=== PATIENT | female | born 1995 | race Caucasian/White ===

== ENCOUNTER 2016-07-16 16:11 | Emergency (ER) | payer OTHER ==
[~2016-07-16] VITALS: Ht 170.2 cm; Wt 74.7 kg
[~2016-07-16 16:11] MED LIST: OXYC-57 PO
[2016-07-16 16:19] VITALS: TEMP 36.9; Ht 170.2 cm; Wt 74.7 kg
[2016-07-16] MEDS ORDERED: ONDANSETRON INJ 2 MG/ML 2 ML VIAL IV STA (17:28)
[2016-07-16] MEDS ORDERED: SODIUM CHLORIDE 0.9% 1000ML 1,000 ML IV STA (17:28)
[2016-07-16] MEDS ORDERED: MoRPHine SULFATE 4 MG/ML 1 ML CARP\\VIAL IV STA (17:28)
--- NOTE | 2016-07-16 17:58 | EMERGENCY ROOM VISIT NOTE ---
History Report prepared by Preston: Kayleigh Barakat Under the Supervision of: Dr. Sarah De Leon M.D. First contact with patient: 17:24 Chief Complaint: REFERRED BY DOCTOR Stated Complaint: PAIN IN RT ABDOMEN/RIBS History of Present Illness The patient is a 20 year old female who presents to the Emergency Room with complaints of worsening right sided abdominal pain for the past 3 weeks. Her pain radiates into her right ribs, right shoulder, and the right side of her back. She rates her pain as a 7/10. Initially she thought that she pulled a muscle at work because she does a lot of heavy lifting but she states that it is not improving. Over the past few days her pain has been worse after eating and she gets nauseous after eating. She notes feeling tired and occasionally short of breath as well. Coughing and palpation exacerbate her pain. The patient called her PCP and was advised to come to the ED for further evaluation. She denies swelling in her legs. She is on control but cannot deny chance of . Source of History: patient Onset: 3 weeks ago Position: abdomen Symptom Intensity: 7/10 Quality: other (radiating) Timing: worsening Modifying Factors (Worsening): eating, other (coughing) Associated Symptoms: + SOB, + back pain, + fatigue, + nausea Review of Systems See HPI for pertinent positives & negatives. A total of 10 systems reviewed and were otherwise negative. Past Medical & Surgical Medical Problems: (1) Abdominal pain (2) Appendicitis, acute (3) Appendicitis, acute (4) Exposure to bloodborne pathogen (5) Exposure to bloodborne pathogen (6) Female infertility (7) Finger avulsion (8) Gastritis (9) Gastritis (10) HTN (hypertension) (11) Pelvic pain (12) PID (acute pelvic inflammatory disease) Surgical Problems: (1) S/P appendectomy Family History Heart disease Social History Smoking Status: Never Smoker Alcohol Use: none Drug Use: none Marital Status: in relationship Housing Status: lives with significant other Occupation Status: employed Current/Historical Medications Scheduled Control Pills ( Control Pills), 1 TAB PO DAILY Pantoprazole (Protonix), 40 MG PO DAILY Scheduled PRN Ibuprofen (Motrin), 800 MG PO Q6H PRN for Pain Allergies Coded Allergies: No Known Allergies (Unverified , 05/11/16) Physical Exam Vital Signs Date Time Temp Pulse Resp B/P Pulse Ox O2 Delivery O2 Flow Rate FiO2 07/16/16 21:54 70 20 128/71 99 07/16/16 21:00 72 18 120/72 Room Air 07/16/16 19:50 85 18 119/85 98 Room Air 07/16/16 18:51 106 20 140/94 97 Room Air 07/16/16 16:19 36.9 98 17 147/90 100 Room Air Physical Exam Vital signs reviewed. General: Well-appearing 20 year old female, in no significant distress. HEENT: No scleral icterus, PERRLA, neck supple. Atraumatic. Cardiovascular: Regular rate and rhythm, no extra sounds. Pulmonary: Clear to auscultation bilaterally, normal work of breathing. Abdomen: Soft, tender to palpation of the RUQ, nondistended, positive bowel sounds. Musculoskeletal: Atraumatic, no peripheral edema. Neurologic: Patient awake alert and oriented x 3, full strength in all 4 extremities. Cranial nerves 2 through 12 grossly intact. Skin: Warm, dry, no rash Medical Decision & Procedures ER Provider Diagnostic Interpretation: Radiology results as stated below per my review and radiologist interpretation: ABDOMINAL ULTRASOUND, RIGHT UPPER QUADRANT HISTORY: Right upper quadrant abdominal pain.. COMPARISON: Abdomen and pelvis CT 01/31/2016. FINDINGS: Pancreas: The pancreatic tail is obscured by overlying bowel gas. The remaining portions of the pancreas are within normal limits. Liver: Unremarkable. Gallbladder: No gallbladder wall thickening. No gallstones. CBD: 3 mm. Right kidney: No hydronephrosis. IMPRESSION: No significant abnormality identified within the right upper quadrant. Electronically signed by: Boo Alfosno M.D. 07/16/2016 7:54 PM CHEST ONE VIEW PORTABLE HISTORY: cough, RUQ pain COMPARISON: Chest 01/31/2016. FINDINGS: The lungs are clear. Cardiac silhouette is normal in size. No pleural effusions. No pneumothorax. IMPRESSION: No acute process. Electronically signed by: Boo Alfonso M.D. 07/16/2016 6:04 PM CHEST CTA for PULMONARY ARTERIES CT DOSE: 241.52 mGy.cm HISTORY: Atypical chest pain. TECHNIQUE: Multiaxial CT images of the chest were performed following the intravenous administration of contrast to evaluate the pulmonary arteries. Maximal intensity projection images were also obtained. COMPARISON STUDY: Chest CTA 04/27/2012. FINDINGS: There is a normal caliber thoracic aorta with no evidence for dissection. There is no evidence for pulmonary embolus. No pleural effusions. No pneumothorax. The liver and spleen are unremarkable. No mediastinal or hilar lymphadenopathy. The central airways are patent. The lungs are clear. IMPRESSION: No evidence for pulmonary embolus. Electronically signed by: Boo Alfonso M.D. 07/16/2016 9:20 PM Laboratory Results 07/16/16 17:40 Red Blood Count 4.55, Mean Corpuscular Volume 82.6, Mean Corpuscular Hemoglobin 27.3, Mean Corpuscular Hemoglobin Concent 33.0, Mean Platelet Volume 10.6, Neutrophils (%) (Auto) 56.6, Lymphocytes (%) (Auto) 34.2, Monocytes (%) (Auto) 8.0, Eosinophils (%) (Auto) 0.8, Basophils (%) (Auto) 0.2, Neutrophils # (Auto) 5.59, Lymphocytes # (Auto) 3.38, Monocytes # (Auto) 0.79, Eosinophils # (Auto) 0.08, Basophils # (Auto) 0.02 07/16/16 17:40 Test 07/16/16 17:40 07/16/16 17:45 07/16/16 19:57 White Blood Count 9.88 K/uL (4.8-10.8) Red Blood Count 4.55 M/uL (4.2-5.4) Hemoglobin 12.4 g/dL (12.0-16.0) Hematocrit 37.6 % (37-47) Mean Corpuscular Volume 82.6 fL (80-100) Mean Corpuscular Hemoglobin 27.3 pg (25-34) Mean Corpuscular Hemoglobin Concent 33.0 g/dl (32-36) Platelet Count 252 K/uL (130-400) Mean Platelet Volume 10.6 fL (7.4-10.4) Neutrophils (%) (Auto) 56.6 % Lymphocytes (%) (Auto) 34.2 % Monocytes (%) (Auto) 8.0 % Eosinophils (%) (Auto) 0.8 % Basophils (%) (Auto) 0.2 % Neutrophils # (Auto) 5.59 K/uL (1.4-6.5) Lymphocytes # (Auto) 3.38 K/uL (1.2-3.4) Monocytes # (Auto) 0.79 K/uL (0.11-0.59) Eosinophils # (Auto) 0.08 K/uL (0-0.5) Basophils # (Auto) 0.02 K/uL (0-0.2) RDW Standard Deviation 43.0 fL (36.4-46.3) RDW Coefficient of Variation 14.2 % (11.5-14.5) Immature Granulocyte % (Auto) 0.2 % Immature Granulocyte # (Auto) 0.02 K/uL (0.00-0.02) Anion Gap 13.0 mmol/L (3-11) Est Creatinine Clear Calc Drug Dose 101.2 ml/min Estimated GFR () 102.4 Estimated GFR (Non- 88.4 BUN/Creatinine Ratio 15.0 (10-20) Calcium Level 9.2 mg/dl (8.5-10.1) Magnesium Level 2.2 mg/dl (1.8-2.4) Total Bilirubin 0.3 mg/dl (0.2-1) Direct Bilirubin 0.1 mg/dl (0-0.2) Aspartate Amino Transf (AST/SGOT) 20 U/L (15-37) Alanine Aminotransferase (ALT/SGPT) 19 U/L (12-78) Alkaline Phosphatase 67 U/L (45-117) Total Creatine Kinase 87 U/L (26-192) Creatine Kinase MB 0.5 ng/ml (0.5-3.6) Creatine Kinase MB Ratio 0.6 (0-3.0) Total Protein 8.5 gm/dl (6.4-8.2) Albumin 4.5 gm/dl (3.4-5.0) Lipase 138 U/L (73-393) Human Chorionic Gonadotropin, Quant < 1 mIU/mL Urine Color YELLOW Urine Appearance CLEAR (CLEAR) Urine pH 5.0 (4.5-7.5) Urine Specific [place] 1.012 (1.000-1.030) Urine Protein NEG (NEG) Urine Glucose (UA) NEG (NEG) Urine Ketones 2+ (NEG) Urine Occult Blood NEG (NEG) Urine Nitrite NEG (NEG) Urine Bilirubin NEG (NEG) Urine Urobilinogen NEG (NEG) Urine Leukocyte Esterase NEG (NEG) Bedside D-Dimer > 450 ng/mlFEU (0-450) Laboratory results per my review. Medications Administered Medications (Trade) Dose Ordered Sig/Анна Route Start Time Stop Time Status Last Admin Dose Admin Sodium Chloride (Nss 1000ml) 1,000 ml @ 125 mls/hr Q8H STAT IV 07/16/16 17:28 07/16/16 22:48 DC 07/16/16 18:48 125 MLS/HR Morphine Sulfate (MoRPHine SULFATE INJ) 4 mg NOW STAT IV 07/16/16 17:28 07/16/16 17:30 DC 07/16/16 18:47 4 MG Ondansetron HCl (Zofran Inj) 4 mg NOW STAT IV 07/16/16 17:28 07/16/16 17:30 DC 07/16/16 18:47 4 MG Ketorolac Tromethamine (Toradol Inj) 30 mg NOW STAT IV 07/16/16 19:52 07/16/16 19:54 DC 07/16/16 20:01 30 MG Pantoprazole Sodium (Protonix Tab) 40 mg NOW STAT PO 07/16/16 21:29 07/16/16 21:30 DC 07/16/16 21:46 40 MG ECG Indication: abdominal pain Rate (beats per minute): 84 Rhythm: normal sinus Findings: no acute ischemic change, no ectopy ED Course 1723: Past medical records reviewed. The patient was evaluated in room B3B. A complete history and physical examination was performed. 1727: Zofran 4 mg IV, Morphine sulfate 4 mg IV, NSS 1000 ml @ 125 mls/hr IV 1951: Toradol 30 mg IV 2106: I reassessed the patient and she is doing well. 2128: Protonix tab 40 mg PO 2146: I reassessed the patient at this time. She is feeling better and resting comfortably. I discussed the results and treatment plan with the patient. I answered all pertaining questions that she had. She expressed understanding and verbalized agreement. The patient will be discharged home. Medical Decision Differential diagnosis: Etiologies such as appendicitis, diverticulitis, PUD, biliary pathology, UTI, pancreatitis, obstruction, mesenteric ischemia, aortic pathology, infections, inflammatory bowel disease, renal colic, as well as others were entertained. This pt was evaluated and appeared to be in no distress. IV access was obtained and lab work was drawn. Pt was placed on the ice cream dispenser. IVF were initiated and pt was medicated with morphine and zofran. US GB is negative for acute abnl. Lab work is fairly unrevealing. DDimer is positive and CT chest is neg for PE. PT was informed of the findings and agrees with plan for conservative tx. She will f/u with PCP this week and return to the ED for worsening of symptoms or any medical concerns. [place] Drug Monitoring Program Search Results: patient reviewed within database Impression Primary Impression: Right upper quadrant pain Scribe Attestation The scribe's documentation has been prepared under my direction and personally reviewed by me in its entirety. I confirm that the note above accurately reflects all work, treatment, procedures, and medical decision making performed by me. Departure Information Dispostion Home / Self-Care Prescriptions Pantoprazole (Protonix) 40 Mg Tab 40 MG PO DAILY, #30 TAB Prov: Sarah De Leon M.D. 07/16/16 Referrals Evin Champion M.D. (PCP) Forms HOME CARE DOCUMENTATION FORM, IMPORTANT VISIT INFORMATION, WORK / SCHOOL INSTRUCTIONS Patient Instructions A Signature Page, My [facility] Additional Instructions Diagnosis: Right upper quadrant abdominal pain Protonix 40 mg daily for the next 2 weeks. Avoid alcohol, coffee, soda, greasy and spicy fluids. Drink plenty of clear fluids. Follow-up with your physician this week for reevaluation and consideration of further testing. Return to the ER for worsening of symptoms or any medical concerns.
--- NOTE | 2016-07-16 18:05 | DIAGNOSTIC IMAGING REPORT ---
CHEST ONE VIEW PORTABLE HISTORY: cough, RUQ pain COMPARISON: Chest 01/31/2016. FINDINGS: The lungs are clear. Cardiac silhouette is normal in size. No pleural effusions. No pneumothorax. IMPRESSION: No acute process. Electronically signed by: Boo Alfonso M.D. 07/16/2016 6:04 PM
[2016-07-16 18:10] LABS: BASO % 0.2 %; BASO ABS # 0.02 K/uL (0-0.2); COMPLETE YES; EOS % 0.8 %; HEMATOCRIT 37.6 % (37-47); IG% 0.2 %; LYMPH % 34.2 %; LYMPH ABS # 3.38 K/uL (1.2-3.4); MEAN CELL VOLUME 82.6 fL (80-100); MEAN CORPUSCULAR HEMOGLOBIN 27.3 pg (25-34); MEAN PLATELET VOLUME 10.6 fL (7.4-10.4); NEUT % 56.6 %; PLATELET COUNT 252 K/uL (130-400); RED BLOOD COUNT 4.55 M/uL (4.2-5.4); WHITE BLOOD COUNT 9.88 K/uL (4.8-10.8)
[2016-07-16 18:29] LABS: CALCIUM 9.2 mg/dl (8.5-10.1); CREATININE 0.92 mg/dl (0.60-1.20); MAGNESIUM 2.2 mg/dl (1.8-2.4); POTASSIUM 3.5 mmol/L (3.5-5.1)
[2016-07-16 18:33] LABS: CKMB/CK RATIO 0.6 (0-3.0)
[2016-07-16] MEDS ORDERED: BCPILLS PO (18:36)
[2016-07-16] MEDS ORDERED: IBUP-1428 PO (18:37)
[2016-07-16 19:06] LABS: URINE APPEARANCE CLEAR (CLEAR); URINE BILIRUBIN NEG (NEG); URINE COLOR YELLOW; URINE NITRITE NEG (NEG); URINE SPECIFIC GRAVITY 1.012 (1.000-1.030); UROBILINOGEN NEG (NEG); ZZUR CULT IF INDIC CLEAN CATCH NO
[2016-07-16 19:11] LABS: MANUAL MICROSCOPIC REQUIRED? NO; REVIEW REQ? NO
[2016-07-16] MEDS ORDERED: KETOROLAC TROMETHAMINE 30 MG/ML VIAL IV STA (19:52)
--- NOTE | 2016-07-16 19:55 | DIAGNOSTIC IMAGING REPORT ---
ABDOMINAL ULTRASOUND, RIGHT UPPER QUADRANT HISTORY: Right upper quadrant abdominal pain.. COMPARISON: Abdomen and pelvis CT 01/31/2016. FINDINGS: Pancreas: The pancreatic tail is obscured by overlying bowel gas. The remaining portions of the pancreas are within normal limits. Liver: Unremarkable. Gallbladder: No gallbladder wall thickening. No gallstones. CBD: 3 mm. Right kidney: No hydronephrosis. IMPRESSION: No significant abnormality identified within the right upper quadrant. Electronically signed by: Boo Alfonso M.D. 07/16/2016 7:54 PM
[2016-07-16] MEDS ORDERED: OPTIRAY 320 IV PRN (20:30)
--- NOTE | 2016-07-16 21:22 | DIAGNOSTIC IMAGING REPORT ---
CHEST CTA for PULMONARY ARTERIES CT DOSE: 241.52 mGy.cm HISTORY: Atypical chest pain. TECHNIQUE: Multiaxial CT images of the chest were performed following the intravenous administration of contrast to evaluate the pulmonary arteries. Maximal intensity projection images were also obtained. COMPARISON STUDY: Chest CTA 04/27/2012. FINDINGS: There is a normal caliber thoracic aorta with no evidence for dissection. There is no evidence for pulmonary embolus. No pleural effusions. No pneumothorax. The liver and spleen are unremarkable. No mediastinal or hilar lymphadenopathy. The central airways are patent. The lungs are clear. IMPRESSION: No evidence for pulmonary embolus. Electronically signed by: Boo Alfonso M.D. 07/16/2016 9:20 PM
[2016-07-16] MEDS ORDERED: PANT40TA PO (21:28)
[2016-07-16] MEDS ORDERED: PANTOprazole SOD 40 MG TAB PO STA (21:29)
[2016-07-16 21:54] VITALS: BP 128/71; PULSE 70; O2SAT 99
[2016-11-06] MEDS ORDERED: FOLI1TAB8 PO (18:35)
== END 2016-07-16 21:55 | disposition home or self-care (01) ==
LOC: C.EDB 16:11
DX: R10.11 Right upper quadrant pain (principal); I10 Essential (primary) hypertension; M25.511 Pain in right shoulder

== ENCOUNTER → 2016-08-20 | Outpatient (CLI) | payer OTHER ==
[~2016-08-20] MED LIST changes: +BCPILLS PO; +DOXY100C PO; +FOLI1TAB7 PO; +HYDR-5688 PO; +IBUP-1428 PO; +METR-163 PO; +MNC50 PO; -OXYC-57 PO; +PANT40TA PO; +PRENTAB26 PO; +SINCALIDE INJ 1.5 MCG in SODIUM CHLORIDE 0.9% 100ML 100 ML IV ONE
--- NOTE | 2016-08-20 10:57 | DIAGNOSTIC IMAGING REPORT ---
NUCLEAR HEPATOBILIARY SCAN WITH EJECTION FRACTION IMAGING CLINICAL HISTORY: Colicky right upper quadrant abdominal pain. COMPARISON STUDY: Abdominal ultrasound dated 07/16/2016. TECHNIQUE: Dynamic images of the liver and anterior abdomen were obtained every 5 minutes for a total of 60 minutes following the IV administration of 5.4mCi of technetium 99m Choletec. 1.5 mcg of sincalide was then injected with an additional images acquired at 45 minutes to calculate the gallbladder ejection fraction. The patient experienced discomfort following the Kinevac infusion and only the 45 minute image was acquired. The ejection fraction was calculated manually. FINDINGS: The hepatobiliary scan shows prompt and homogeneous hepatic uptake. There is visualized activity within the intra and extrahepatic biliary tree at 5 minutes, and within the gallbladder at 5 minutes. There is normal biliary to bowel transit, with small bowel visualized by 10 minutes. On the sincalide imaging, the gallbladder ejection fraction was measured at 70%. IMPRESSION: 1. Unremarkable nuclear hepatobiliary scan. There is no scintigraphic evidence of cholecystitis. 2. The gallbladder ejection fraction measured 70% which is normal. Electronically signed by: Kevin Clarke M.D. 08/20/2016 10:55 AM Dictated Date/Time: 08/20/2016 10:51 AM
== END | disposition home or self-care (01) ==
LOC: C.NUCL 07:31
PROVIDERS: ATTEND Nurse Practitioner
DX: R10.11 Right upper quadrant pain (principal)

== ENCOUNTER → 2016-09-16 | Outpatient (CLI) | payer OTHER ==
[~2016-09-16] MED LIST changes: -SINCALIDE INJ 1.5 MCG in SODIUM CHLORIDE 0.9% 100ML 100 ML IV ONE
== END | disposition home or self-care (01) ==
LOC: C.LAB1850 11:33
PROVIDERS: ATTEND Obstetrics & Gynecology
DX: Z32.00 Encounter for pregnancy test, result unknown (principal)

== ENCOUNTER → 2016-10-03 | Outpatient (CLI) | payer OTHER ==
[2016-10-03 16:03] LABS: URINE APPEARANCE CLEAR (CLEAR); URINE BILIRUBIN NEG (NEG); URINE COLOR YELLOW; URINE NITRITE NEG (NEG); URINE SPECIFIC GRAVITY 1.006 (1.000-1.030); UROBILINOGEN NEG (NEG)
[2016-10-03 16:04] LABS: MANUAL MICROSCOPIC REQUIRED? NO; REVIEW REQ? NO
== END | disposition home or self-care (01) ==
LOC: C.LABSPEC 15:44
PROVIDERS: ATTEND Obstetrics & Gynecology
DX: Z34.01 Encounter for supervision of normal first pregnancy, first trimester (principal)

== ENCOUNTER → 2016-10-10 | Outpatient (CLI) | payer BC | END | disposition home or self-care (01) | LOC: C.PAPS 09:41 | PROVIDERS: ATTEND Obstetrics & Gynecology | DX: Z34.01 Encounter for supervision of normal first pregnancy, first trimester (principal) ==

== ENCOUNTER → 2016-10-10 | Outpatient (CLI) | payer BC ==
[2016-10-10 17:20] LABS: BASO % 0.1 %; BASO ABS # 0.01 K/uL (0-0.2); COMPLETE YES; EOS % 0.4 %; HEMATOCRIT 35.1 % (37-47); IG% 0.1 %; LYMPH % 25.8 %; LYMPH ABS # 2.31 K/uL (1.2-3.4); MEAN CELL VOLUME 82.8 fL (80-100); MEAN CORPUSCULAR HEMOGLOBIN 27.6 pg (25-34); MEAN CORPUSCULAR HGB CONC 33.3 g/dl (32-36); MEAN PLATELET VOLUME 10.1 fL (7.4-10.4); MONO % 10.3 %; NEUT % 63.3 %; PLATELET COUNT 226 K/uL (130-400); RED BLOOD COUNT 4.24 M/uL (4.2-5.4); WHITE BLOOD COUNT 8.94 K/uL (4.8-10.8)
== END | disposition home or self-care (01) ==
LOC: C.LAB1850 16:41
PROVIDERS: ATTEND Obstetrics & Gynecology
DX: Z34.01 Encounter for supervision of normal first pregnancy, first trimester (principal)

== ENCOUNTER 2016-10-17 07:57 | Day surgery (SDC) | payer BC ==
[2016-10-16 16:09] VITALS: BMI 26.0
[~2016-10-17] VITALS: Ht 167.6 cm; Wt 72.7 kg
[~2016-10-17 07:57] MED LIST changes: -BCPILLS PO; -DOXY100C PO; +DOXYCYCLINE HYCLATE 100 MG CAP PO SCH; -FOLI1TAB7 PO; -HYDR-5688 PO; +LACTATED RINGER'S 1000ML 1,000 ML IV SCH; +METHYLERGONOVINE MALEATE 0.2 MG TAB PO SCH; -METR-163 PO; -MNC50 PO; -PANT40TA PO; -PRENTAB26 PO
[2016-10-17] MEDS ORDERED: DOXYCYCLINE HYCLATE 100 MG CAP PO SCH ×2 (08:00→12:00)
[2016-10-17] MEDS ORDERED: MIDAZOLAM HCL 1 MG/ML 2ML VIAL ONE (08:04)
[2016-10-17] MEDS ORDERED: DEXAMETHASONE SOD INJ 4 MG/ML VIAL ONE (08:04)
[2016-10-17] MEDS ORDERED: ONDANSETRON INJ 2 MG/ML 2 ML VIAL ONE ×2 (08:04→09:15)
[2016-10-17] MEDS ORDERED: LIDOCAINE HCL 2% 2 ML VIAL (20MG/ML) ONE (08:04)
[2016-10-17] MEDS ORDERED: FENTANYL CITRATE INJ 50 MCG/1 ML 2 ML VIAL ONE ×3 (08:04→11:50)
[2016-10-17] MEDS ORDERED: PROPOFOL IV EMULSION 10 MG/ML 20 ML VIAL IV ONE (08:04)
[2016-10-17] MEDS ORDERED: METHYLERGONOVINE MALEATE 0.2 MG/ML AMP ONE (08:08)
[2016-10-17 08:22] VITALS: BP 239/72; PULSE 95; TEMP 36.5; O2SAT 9; Ht 167.6 cm; Wt 72.7 kg
[2016-10-17] MEDS ORDERED: NURSING VERBAL MED ORDER ONE ×2 (09:07→12:05)
[2016-10-17] MEDS ORDERED: SCOPOLAMINE 1.5 MG TDSY TD ONE (09:15)
[2016-10-17] MEDS ORDERED: METHYLERGONOVINE MALEATE 0.2 MG/ML AMP IM SCH (10:00)
--- NOTE | 2016-10-17 10:53 | History & Physical Bridge Note ---
H&P Re-Evaluation Bridge Note: I have examined the patient, reviewed the History & Physical and in the interval since the performance of the History & Physical I have noted the following changes of clinical significance: No changes noted
--- NOTE | 2016-10-17 11:01 | Discharge Instructions ---
Discharge Instructions Date of Service Oct 17, 2016. Admission Reason for Admission: Missed Discharge Discharge Diagnosis / Problem: s/p surgery Discharge Goals Goal(s): Routine recovery after surgery Activity Recommendations Activity Limitations: as noted below . Instructions / Follow-Up Instructions / Follow-Up ACTIVITY RECOMMENDATIONS: * Avoid tampons, douching, hot tubs, pools, and intercourse until bleeding has stopped. * May shower as usual. * No strenuous activity for 24-48 hours. After 24-48 hours, you may do anything you feel like doing (driving and sports are okay). SPECIAL CARE INSTRUCTIONS: Special Diet: * Mild nausea may occur in the immediate post-operative period. * Take clear liquids such as tea, cola or bouillon until all nausea has subsided; you may then resume your normal diet. Special Care: * Light bleeding and vaginal spotting can last from a few days to 3-4 weeks. Call your doctor if bleeding becomes heavier than the heaviest part of your period. * Check your temperature twice a day for one week. If it goes above 100.4 degrees Fahrenheit (38.0 Celsius), notify your doctor. * Call your doctor's office for an appointment for 2 weeks after your surgery. YOU WILL BE GIVEN METHERGINE TABS 0.2mg to be taken by mouth every 6hrs for 3 doses. Your first at home dose should be about 5pm today. PRESIDENT THE ANTIBIOTIC THAT I SENT TO YOUR HOME PHARMACY AND TAKE DIRECTED. FOLLOW-UP VISIT: Call your doctor's office for an appointment for 2 weeks after your surgery. Current Hospital Diet Patient's current hospital diet: Discharge Diet Recommended Diet: Regular Diet Pending Studies Studies pending at discharge: yes List of pending studies: pathology report Medical Emergencies . Who to Call and When: Medical Emergencies: If at any time you feel your situation is an emergency, please call 911 immediately. . Non-Emergent Contact Non-Emergency issues call your: Hospital Insurance Representative . . "Provider Documentation" section prepared by Aleksandra Muse. VTE Core Measure Inpt VTE Proph given/why not?: Treatment not indicated
[2016-10-17] MEDS ORDERED: SODIUM CHLORIDE 0.9% 1000ML 1,000 ML IV SCH (11:25)
--- NOTE | 2016-10-17 11:25 | [facility] Post Operative Brief Note ---
Immediate Operative Summary Operative Date Oct 17, 2016. Pre-Operative Diagnosis Missed Post-Operative Diagnosis Missed Procedure(s) Performed Dilation and Evacuation and Curretage Surgeon Dr Muse Tuberculosis Specialist Surgeon(s) none Estimated Blood Loss 25ml Findings uterus top normal preprocedure. moderate POCs. Small and mobile postprocedure. Fluids (cc crystalloids) 1000 Specimens A: Products of conception Drains none Anesthesia general Complication(s) None Disposition Recovery Room / PACU
[2016-10-17] MEDS ORDERED: ONDANSETRON INJ 2 MG/ML 2 ML VIAL IV PRN ×2 (11:30→11:45)
[2016-10-17] MEDS ORDERED: KETOROLAC TROMETHAMINE 30 MG/ML VIAL IV. PRN (11:30)
[2016-10-17] MEDS ORDERED: IBUPROFEN 600 MG TAB PO PRN (11:30)
[2016-10-17] MEDS ORDERED: OXYCODONE/ACETAMINOPHEN 5-325 TAB PO PRN ×2 (11:30)
--- NOTE | 2016-10-17 11:42 | Anesthesiology Progress Note ---
Anesthesia Post Op Note Date & Time Oct 17, 2016 at 11:41 Vital Signs Pain Intensity: 0 Vital Signs Past 12 Hours Date Time Temp Pulse Resp B/P Pulse Ox O2 Delivery O2 Flow Rate FiO2 10/17/16 11:30 73 17 133/81 100 Mask 10 10/17/16 11:22 36.4 84 15 128/96 99 Mask 10 10/17/16 08:22 36.5 95 18 239/72 9 Room Air Notes Mental Status: alert / awake / arousable, participated in evaluation Pt Amnestic to Procedure: Yes Nausea / Vomiting: adequately controlled Pain: adequately controlled Airway Patency, RR, SpO2: stable & adequate BP & HR: stable & adequate Hydration State: stable & adequate Anesthetic Complications: no major complications apparent
[2016-10-17] MEDS ORDERED: ATROPINE SULFATE 0.1 MG/ML 5ML SYR IV PRN (11:45)
[2016-10-17] MEDS ORDERED: EpHEDrine SULFATE INJ 50 MG/ML AMP IV PRN (11:45)
[2016-10-17] MEDS ORDERED: FENTANYL CITRATE INJ 50 MCG/1 ML 2 ML VIAL IV PRN (11:45)
--- NOTE | 2016-10-17 11:51 | OPERATIVE REPORT ---
DATE OF OPERATION: 10/17/2016 PREOPERATIVE DIAGNOSIS: Missed . POSTOPERATIVE DIAGNOSIS: Same. PROCEDURE: Dilatation, evacuation, curettage. SURGEON: Dr. Aleksandra Muse. W[employer] MECHANIC: None. IV FLUIDS: 1000 mL ESTIMATED BLOOD LOSS: 25 mL ANESTHESIA: General. FINDINGS: Uterus top normal size preprocedure and small and mobile post-procedure, moderate products of conception. INDICATIONS: A 20-year-old 1, para 0, with the findings of empty gestational sac on ultrasound yesterday with debris and prior ultrasound about a week ago showing potentially a small yolk sac and pole. The patient denies any vaginal bleeding. She was given her treatment options to include watchful waiting, medical management, and surgical procedures, and went with the latter. DESCRIPTION OF PROCEDURE: The patient was taken to the operating room and identified. After adequate general anesthesia was obtained, she was placed in dorsal lithotomy position and prepped and draped in the usual sterile fashion. The bladder was drained for clear yellow urine. Weighted speculum and anterior retractor placed to visualize the cervix which was grasped at its anterior lip with an Allis clamp. The cervix was sequentially dilated using Hegar dilators to 25. The 8 mm suction curette was gently placed through the cervical os into the uterine cavity after it had been sounded to approximately 11 cm. The uterus was cleared off its contents in multiple passes and curettage was performed to a gritty consistency. Additional passes removed any remaining blood clot or tissue. The patient was given 0.2 mg of IM Methergine at the end of the procedure. There was no significant bleeding. All the retractors were removed. The patient was returned to the supine position and awoken from her anesthesia and transferred to the recovery room in stable condition. I attest to the content of the Intraoperative Record and any orders documented therein. Any exceptio ns are noted below.
[2016-10-17] MEDS ORDERED: METOCLOPRAMIDE HCL INJ 5 MG/ML 2 ML VIAL ONE (12:13)
[2016-10-17 12:30] VITALS: BP 117/57; PULSE 81; TEMP 36.8; O2SAT 98
[2016-10-17 13:00] VITALS: BP 115/76; PULSE 79; O2SAT 97
[2016-10-17 13:34] VITALS: BP 120/64; PULSE 81; TEMP 36.1; O2SAT 98
[2016-10-17] MEDS ORDERED: METHYLERGONOVINE MALEATE 0.2 MG TAB PO SCH (17:00)
== END 2016-10-17 13:44 | disposition home or self-care (01) ==
LOC: C.ACU 07:57
PROVIDERS: ATTEND Obstetrics & Gynecology
DX: O02.1 Missed abortion (principal)

== ENCOUNTER 2016-11-06 17:26 | Emergency (ER) | payer BC ==
[~2016-11-06] VITALS: Ht 167.6 cm; Wt 73.7 kg
[~2016-11-06 17:26] MED LIST changes: -DOXYCYCLINE HYCLATE 100 MG CAP PO SCH; -LACTATED RINGER'S 1000ML 1,000 ML IV SCH; -METHYLERGONOVINE MALEATE 0.2 MG TAB PO SCH
[2016-11-06 17:28] VITALS: TEMP 36.8; Ht 167.6 cm; Wt 73.7 kg
[2016-11-06] MEDS ORDERED: PRENTAB26 PO (18:35)
[2016-11-06] MEDS ORDERED: FOLI1TAB7 PO (18:35)
[2016-11-06 18:40] LABS: BASO % 0.2 %; BASO ABS # 0.02 K/uL (0-0.2); COMPLETE YES; EOS % 1.5 %; HEMATOCRIT 38.1 % (37-47); IG% 0.1 %; LYMPH % 36.3 %; LYMPH ABS # 3.23 K/uL (1.2-3.4); MEAN CORPUSCULAR HEMOGLOBIN 28.3 pg (25-34); MEAN CORPUSCULAR HGB CONC 32.5 g/dl (32-36); MEAN PLATELET VOLUME 9.8 fL (7.4-10.4); MONO % 10.2 %; NEUT % 51.7 %; PLATELET COUNT 262 K/uL (130-400); RED BLOOD COUNT 4.38 M/uL (4.2-5.4)
[2016-11-06 18:43] LABS: MANUAL MICROSCOPIC REQUIRED? NO; REVIEW REQ? NO; URINE APPEARANCE CLEAR (CLEAR); URINE BILIRUBIN NEG (NEG); URINE COLOR YELLOW; URINE EPITHELIAL CELL AUTO >30 /lpf (0-5); URINE NITRITE NEG (NEG); URINE PH 5.5 (4.5-7.5); URINE SPECIFIC GRAVITY 1.018 (1.000-1.030); UROBILINOGEN NEG (NEG); ZZUR CULT IF INDIC CLEAN CATCH NO
[2016-11-06 19:08] LABS: BUN/CREATININE RATIO 10.4 (10-20); CALCIUM 9.4 mg/dl (8.5-10.1); CREATININE 0.94 mg/dl (0.60-1.20); POTASSIUM 3.6 mmol/L (3.5-5.1)
--- NOTE | 2016-11-06 19:30 | DIAGNOSTIC IMAGING REPORT ---
PELVIC ULTRASOUND, TRANSABDOMINAL AND TRANSVAGINAL HISTORY: pelvic pain, hx PID COMPARISON: Pelvic ultrasound 02/12/2016. FINDINGS: Uterus: 8.4 x 3.8 x 4.6 cm. Endometrial stripe: 13 mm in thickness. There are similar appearing complex cysts within the bilateral ovaries which are positioned posterior to the uterus. These measure 4.5 cm on the right and 4.4 cm on the left. These demonstrate internal septations and complex material suggestive of a retracting clot. Therefore, these likely represent hemorrhagic cysts. Miscellaneous:Small amount of pelvic free fluid. IMPRESSION: Bilateral ovarian hemorrhagic cysts as described above. 6-8 week pelvic ultrasound follow up is recommended to ensure resolution. Small amount of pelvic free fluid. Electronically signed by: Boo Alfonso M.D. 11/06/2016 7:28 PM Dictated Date/Time: 11/06/2016 7:24 PM
[2016-11-06] MEDS ORDERED: KETOROLAC TROMETHAMINE 30 MG/ML VIAL IV STA (20:01)
[2016-11-06] MEDS ORDERED: DOXY100C PO (20:14)
[2016-11-06] MEDS ORDERED: METR-163 PO (20:14)
[2016-11-06] MEDS ORDERED: FLUCONAZOLE 50 MG TAB PO ONE (20:15)
[2016-11-06] MEDS ORDERED: CEFTRIAXONE SOD 350MG/ML 1 GM VIAL IM ONE (20:15)
--- NOTE | 2016-11-06 20:16 | EMERGENCY ROOM VISIT NOTE ---
History First contact with patient: 17:32 Chief Complaint: PELVIC PAIN Stated Complaint: PELVIC PAIN History of Present Illness The patient is a 20 year old female who presents to the Emergency Room with complaints of pelvic pain. The patient states that she has had pelvic pain for the past one week. She was seen by her ACCOUNT ASSISTANT last Friday. At that time, she had a normal pelvic exam. She states that she had a D&C performed on October 17 and this appointment with a follow-up from that. She reports that over the weekend, she started to develop pelvic pain and white discharge. She called her ACCOUNT ASSISTANT on Friday and they called her any treatment for a yeast infection. She states that the pain has been gradually worsening and she rates her current discomfort a 7/10. She states that she has a history of PID and has been hospitalized for this in the past. She denies any urinary symptoms, changes in bowel movements, fevers or chills. Review of Systems A complete 10-point Review of Systems was discussed with the patient, with pertinent positives and negatives listed in the History of Present Illness. All remaining Review of Systems questions can be considered negative unless otherwise specified. Past Medical/Surgical History Medical Problems: (1) Abdominal pain (2) Appendicitis, acute (3) Appendicitis, acute (4) Exposure to bloodborne pathogen (5) Exposure to bloodborne pathogen (6) Female infertility (7) Finger avulsion (8) Gastritis (9) Gastritis (10) HTN (hypertension) (11) Pelvic pain (12) PID (acute pelvic inflammatory disease) Surgical Problems: (1) S/P appendectomy Family History Heart disease Social History Smoking Status: Never Smoker Alcohol Use: none Drug Use: none Marital Status: in relationship Housing Status: lives with significant other Occupation Status: employed Current/Historical Medications Scheduled Doxycycline Hyclate (Vibramycin), 100 MG PO BID Folic Acid (Folvite), 1 MG PO DAILY Metronidazole (Flagyl), 500 MG PO BID Multivit/Min/Iron/Fol Ac/Pren ( Vitamin), 1 TAB PO DAILY Scheduled PRN Hydrocodone/Acetaminophen 5MG/325MG ([place] 5MG/325MG), 1-2 TABLET PO Q4H PRN for Pain Ibuprofen (Motrin), 800 MG PO Q6H PRN for Pain Allergies Coded Allergies: No Known Allergies (Unverified , 10/17/16) Physical Exam Vital Signs Date Time Temp Pulse Resp B/P Pulse Ox O2 Delivery O2 Flow Rate FiO2 11/06/16 20:19 90 16 139/90 99 Room Air 11/06/16 17:28 36.8 108 18 155/94 100 Room Air Physical Exam VITALS: Vitals are noted on the nurse's note and reviewed by myself. Vital signs stable. GENERAL: This is a 20-year-old female, in no acute distress, nondiaphoretic, well-developed well-nourished. SKIN: Capillary reflex less than 2 seconds. HEART: Regular rate and rhythm without murmurs gallops or rubs. LUNGS: Clear to auscultation bilaterally without wheezes, rales or rhonchi. ABDOMEN: Positive bowel sounds x 4. Soft, mild tenderness across the pelvic region. No guarding or rebound tenderness. PELVIC: There is a moderate amount of white discharge within the vagina. No cervicitis. No cervical motion tenderness. Mild bilateral adnexal tenderness. NEURO: Patient was alert and oriented to person place and time. Medical Decision & Procedures ER Provider Diagnostic Interpretation: PELVIC ULTRASOUND, TRANSABDOMINAL AND TRANSVAGINAL FINDINGS: Uterus: 8.4 x 3.8 x 4.6 cm. Endometrial stripe: 13 mm in thickness. There are similar appearing complex cysts within the bilateral ovaries which are positioned posterior to the uterus. These measure 4.5 cm on the right and 4.4 cm on the left. These demonstrate internal septations and complex material suggestive of a retracting clot. Therefore, these likely represent hemorrhagic cysts. Miscellaneous:Small amount of pelvic free fluid. IMPRESSION: Bilateral ovarian hemorrhagic cysts as described above. 6-8 week pelvic ultrasound follow up is recommended to ensure resolution. Small amount of pelvic free fluid. Laboratory Results 11/06/16 17:25 Red Blood Count 4.38, Mean Corpuscular Volume 87.0, Mean Corpuscular Hemoglobin 28.3, Mean Corpuscular Hemoglobin Concent 32.5, Mean Platelet Volume 9.8, Neutrophils (%) (Auto) 51.7, Lymphocytes (%) (Auto) 36.3, Monocytes (%) (Auto) 10.2, Eosinophils (%) (Auto) 1.5, Basophils (%) (Auto) 0.2, Neutrophils # (Auto ) 4.60, Lymphocytes # (Auto) 3.23, Monocytes # (Auto) 0.91, Eosinophils # (Auto ) 0.13, Basophils # (Auto) 0.02 11/06/16 17:25 Test 11/06/16 17:25 11/06/16 17:29 11/06/16 19:55 White Blood Count 8.90 K/uL (4.8-10.8) Red Blood Count 4.38 M/uL (4.2-5.4) Hemoglobin 12.4 g/dL (12.0-16.0) Hematocrit 38.1 % (37-47) Mean Corpuscular Volume 87.0 fL (80-100) Mean Corpuscular Hemoglobin 28.3 pg (25-34) Mean Corpuscular Hemoglobin Concent 32.5 g/dl (32-36) Platelet Count 262 K/uL (130-400) Mean Platelet Volume 9.8 fL (7.4-10.4) Neutrophils (%) (Auto) 51.7 % Lymphocytes (%) (Auto) 36.3 % Monocytes (%) (Auto) 10.2 % Eosinophils (%) (Auto) 1.5 % Basophils (%) (Auto) 0.2 % Neutrophils # (Auto) 4.60 K/uL (1.4-6.5) Lymphocytes # (Auto) 3.23 K/uL (1.2-3.4) Monocytes # (Auto) 0.91 K/uL (0.11-0.59) Eosinophils # (Auto) 0.13 K/uL (0-0.5) Basophils # (Auto) 0.02 K/uL (0-0.2) RDW Standard Deviation 51.0 fL (36.4-46.3) RDW Coefficient of Variation 15.8 % (11.5-14.5) Immature Granulocyte % (Auto) 0.1 % Immature Granulocyte # (Auto) 0.01 K/uL (0.00-0.02) Anion Gap 4.0 mmol/L (3-11) Est Creatinine Clear Calc Drug Dose 96.4 ml/min Estimated GFR () 99.8 Estimated GFR (Non- 86.1 BUN/Creatinine Ratio 10.4 (10-20) Calcium Level 9.4 mg/dl (8.5-10.1) Urine Color YELLOW Urine Appearance CLEAR (CLEAR) Urine pH 5.5 (4.5-7.5) Urine Specific [place] 1.018 (1.000-1.030) Urine Protein NEG (NEG) Urine Glucose (UA) NEG (NEG) Urine Ketones NEG (NEG) Urine Occult Blood NEG (NEG) Urine Nitrite NEG (NEG) Urine Bilirubin NEG (NEG) Urine Urobilinogen NEG (NEG) Urine Leukocyte Esterase MODERATE (NEG) Urine WBC (Auto) 5-10 /hpf (0-5) Urine RBC (Auto) 5-10 /hpf (0-4) Urine Hyaline Casts (Auto) 1-5 /lpf (0-5) Urine Epithelial Cells (Auto) >30 /lpf (0-5) Urine Bacteria (Auto) NEG (NEG) Urine Test NEG (NEG) Date/Time Source Procedure Growth Status 11/06/16 19:55 Vaginal Swab Trichomonas Preparation - Final Complete Medications Administered Medications (Trade) Dose Ordered Sig/Анна Route Start Time Stop Time Status Last Admin Dose Admin Ketorolac Tromethamine (Toradol Inj) 30 mg NOW STAT IV 11/06/16 20:01 11/06/16 20:05 DC 11/06/16 20:18 30 MG Ceftriaxone Sodium (Rocephin Im) 250 mg NOW ONCE IM 11/06/16 20:15 11/06/16 20:16 DC 11/06/16 20:17 250 MG Fluconazole (Diflucan Tab) 150 mg NOW ONCE PO 11/06/16 20:15 11/06/16 20:16 DC 11/06/16 20:16 150 MG Acetaminophen/ Hydrocodone Bitart ([place] 5/325mg Home Pack) 1 homepack UD ONCE PO 11/06/16 20:30 11/06/16 20:31 DC 11/06/16 20:31 1 HOMEPACK ED Course The patient was evaluated as above. Labs were drawn and IV access was obtained. Patient was medicated with 30 mg Toradol IV. Pelvic ultrasound was performed and read by radiology as above. Patient was reevaluated and findings were discussed. She was given 250 mg Rocephin IM and 150 mg Diflucan by mouth Discharge instructions were reviewed with the patient. The patient verbalized understanding of my assessment and treatment plan and was discharged home in good condition. Medical Decision Differential diagnosis includes PID, ovarian cyst, ectopic , ovarian torsion, among others. The patient is a 20-year-old female who presents today complaining of pelvic pain. Labs revealed no leukocytosis, anemia or concerning electrolyte abnormality. Urinalysis was not suggestive of infection. Urine was negative. Pelvic ultrasound showed bilateral hemorrhagic ovarian cysts and a small amount of free fluid within the pelvis. The patient's pelvic exam showed findings consistent with vaginal candidiasis. However, given her pelvic pain and her history of pelvic inflammatory disease requiring hospitalization, I do feel she should be treated for PID. She was given Rocephin and Diflucan here and will be placed on Flagyl and doxycycline. She was given [place] for pain. The patient's case was reviewed with Dr. Adorno, ED attending physician, who agreed with my assessment and treatment plan. Based on the patient's presentation and work up, I feel the patient is stable for outpatient treatment. The patient was educated to return to the emergency department for any worsening of their current condition or new/concerning symptoms. She will follow up with ACCOUNT ASSISTANT. [place] Drug Monitoring Program Search Results: patient reviewed within database, no issues identified Impression Primary Impression: Pelvic pain Departure Information Dispostion Home / Self-Care Condition GOOD Prescriptions Hydrocodone/Acetaminophen 5MG/325MG ([place] 5MG/325MG) Tab 1-2 TABLET PO Q4H Y for Pain, #15 TAB For Initial Treatment Prov: Lata Sandra PA-C 11/06/16 Metronidazole (Flagyl) 500 Mg Tab 500 MG PO BID for 14 Days, #28 TAB Prov: Lata Sandra PA-C 11/06/16 Doxycycline Hyclate (VIBRAMYCIN) 100 Mg Cap 100 MG PO BID for 14 Days, #28 CAP Prov: Lata Sandra PA-C 11/06/16 Referrals No Doctor, Assigned (PCP) Aleksandra Muse M.D.(NEEDLE MOLDER/OB) Patient Instructions My [facility] Additional Instructions Take the antibiotics as prescribed. DO not drink any alcohol while taking the Flagyl, as it causes severe nausea and vomiting. For pain control, you can use the following [id number] medicines (if >12 yo): - Regular strength (325mg/tab) Tylenol (acetaminophen) 2 tabs every 4-6 hours as needed. Do not exceed 12 tablets in a 24 hour period. Avoid taking more than 4 grams (4000 mg) of Tylenol per day. This includes any other sources of acetaminophen you may take on a regular basis. - Regular strength (200 mg/tab) Advil (ibuprofen) 1-2 tabs every 4-6 hours as needed. Do not exceed a dose of 3200 mg per day. You have been prescribed [place] to be used for pain control. Take 1-2 tablets every 4-6 hours as needed for pain. This is a narcotic medication. You cannot drive or consume alcohol while on this medicine. This medicine should only be used for pain that cannot be controlled with [id number] pain medicines. Follow-up with ACCOUNT ASSISTANT. Call for appointment. Return to the emergency department with fevers, worsening pain, vomiting or any other new/concerning symptoms.
[2016-11-06] MEDS ORDERED: HYDR-5688 PO (20:17)
[2016-11-06 20:19] VITALS: BP 139/90; PULSE 90; O2SAT 99
[2016-11-06] MEDS ORDERED: NORCO 5/325MG HOME PACK PO ONE (20:30)
[2016-11-09 02:32] LABS: CHLAMYDIA TRACH RNA*** NOT DETECTED (NOT DETECTED); GC (NEIS GONORRHOEAE)RNA** NOT DETECTED (NOT DETECTED)
== END 2016-11-06 20:49 | disposition home or self-care (01) ==
LOC: C.EDB 17:27
DX: R10.2 Pelvic and perineal pain (principal); I10 Essential (primary) hypertension; N97.9 Female infertility, unspecified; K29.70 Gastritis, unspecified, without bleeding; N73.9 Female pelvic inflammatory disease, unspecified; Z82.49 Family history of ischemic heart disease and other diseases of the circulatory system

== ENCOUNTER 2017-04-06 00:59 | Emergency (ER) | payer BC ==
[~2017-04-06] VITALS: Ht 167.6 cm; Wt 71.4 kg
[~2017-04-06 00:59] MED LIST changes: +FOLI1TAB7 PO; +HYDR-5688 PO; +PRENTAB26 PO
[2017-04-06 01:03] VITALS: TEMP 36.6; Ht 167.6 cm; Wt 71.4 kg
[2017-04-06] MEDS ORDERED: MNC50 PO (01:44)
[2017-04-06] MEDS ORDERED: ONDANSETRON INJ 2 MG/ML 2 ML VIAL IV STA (01:50)
[2017-04-06] MEDS ORDERED: SODIUM CHLORIDE 0.9% 1000ML 1,000 ML IV STA (01:50)
[2017-04-06] MEDS ORDERED: KETOROLAC TROMETHAMINE 30 MG/ML VIAL IV STA (01:50)
[2017-04-06 01:58] LABS: URINE APPEARANCE CLEAR (CLEAR); URINE BILIRUBIN NEG (NEG); URINE COLOR YELLOW; URINE NITRITE NEG (NEG); URINE PH 5.5 (4.5-7.5); UROBILINOGEN NEG (NEG); ZZUR CULT IF INDIC CLEAN CATCH NO
[2017-04-06 02:01] LABS: MANUAL MICROSCOPIC REQUIRED? NO; REVIEW REQ? NO
[2017-04-06 02:05] LABS: BASO % 0.2 %; BASO ABS # 0.02 K/uL (0-0.2); COMPLETE YES; EOS % 0.7 %; HEMATOCRIT 39.9 % (37-47); IG% 0.1 %; LYMPH % 29.3 %; LYMPH ABS # 2.68 K/uL (1.2-3.4); MEAN CELL VOLUME 90.9 fL (80-100); MEAN CORPUSCULAR HEMOGLOBIN 29.8 pg (25-34); MEAN CORPUSCULAR HGB CONC 32.8 g/dl (32-36); MEAN PLATELET VOLUME 9.6 fL (7.4-10.4); MONO % 8.4 %; NEUT % 61.3 %; PLATELET COUNT 231 K/uL (130-400); RED BLOOD COUNT 4.39 M/uL (4.2-5.4); WHITE BLOOD COUNT 9.15 K/uL (4.8-10.8)
[2017-04-06 02:21] LABS: BUN/CREATININE RATIO 16.2 (10-20); CALCIUM 9.1 mg/dl (8.5-10.1); CREATININE 0.82 mg/dl (0.60-1.20); POTASSIUM 3.8 mmol/L (3.5-5.1)
[2017-04-06 02:24] LABS: ALB/GLOB RATIO 1.1 (0.9-2)
--- NOTE | 2017-04-06 04:22 | EMERGENCY ROOM VISIT NOTE ---
History First contact with patient: 01:11 Chief Complaint: ABDOMINAL PAIN Stated Complaint: PAIN IN LOWER ABD Nursing Triage Summary: Patient reports lower abdominal pain for the past week that has got worse. Patient also reports nausea. History of Present Illness The patient is a 21 year old female who presents to the Emergency Room with complaints of pain across her lower abdomen for the past one week. The patient states that she has had mild pain for the past one week which worsened tonight. She states that the pain is in the lower abdomen and worsens with urination. She has a history of ovarian cyst, endometriosis and PID. She sees [facility] END DEPARTMENT SUPERVISOR. She reports associated nausea, but no vomiting. She reports the pain is worse with movement. She reports she had a D&C in October of this year and was on antibiotics for an extended period afterward. She denies any abnormal discharge. She denies any chance of . She rates her overall discomfort a 7/10. She has had a previous appendectomy. She denies any fevers/ chills, urinary symptoms or changes in bowel movements. Review of Systems A complete 10 point review of systems was reviewed with the patient with pertinent positives and negatives as per history of present illness. All else were negative. Past Medical/Surgical History Medical Problems: (1) Abdominal pain (2) Appendicitis, acute (3) Appendicitis, acute (4) Exposure to bloodborne pathogen (5) Exposure to bloodborne pathogen (6) Female infertility (7) Finger avulsion (8) Gastritis (9) Gastritis (10) HTN (hypertension) (11) Pelvic pain (12) PID (acute pelvic inflammatory disease) Surgical Problems: (1) S/P appendectomy Family History Heart disease Social History Smoking Status: Current Some Day Smoker Alcohol Use: none Drug Use: none Marital Status: in relationship Housing Status: lives with significant other Occupation Status: employed Current/Historical Medications Scheduled Minocycline HCl (Minocycline HCl), 50 MG PO BID Physical Exam Vital Signs Date Time Temp Pulse Resp B/P (MAP) Pulse Ox O2 Delivery O2 Flow Rate FiO2 04/06/17 04:23 69 16 139/93 100 Room Air 04/06/17 03:40 99 18 146/76 99 Room Air 04/06/17 02:39 74 18 151/92 98 Room Air 04/06/17 01:03 36.6 92 18 159/108 100 Room Air Pain Rating (0-10): 8.0 Physical Exam VITALS: Vitals are noted on the nurse's note and reviewed by myself. Vital signs stable. GENERAL: This is a 21-year-old female, in no acute distress, nondiaphoretic, well-developed well-nourished. HEART: Regular rate and rhythm without murmurs gallops or rubs. LUNGS: Clear to auscultation bilaterally without wheezes, rales or rhonchi. ABDOMEN: Positive bowel sounds x 4. Soft, mild tenderness to palpation across the lower abdomen. No guarding or rebound tenderness. No focal tenderness. PELVIC: Unremarkable external genitalia. Small amount of white discharge within the vaginal vault. No cervicitis. No cervical motion tenderness or adnexal tenderness. NEURO: Patient was alert and oriented to person place and time. Medical Decision & Procedures ER Provider Diagnostic Interpretation: US PELVIC/ENDOVAG: Retroverted uterus measuring 6.7 x 3.3 x 4.3 cm. Endometrium measures 10.5 mm in thickness. No focal myometrial lesion. Right ovary measures 4.9 x 4.9 x 3.7 cm. Complex heterogeneous structure within the right ovary without associated color Doppler flow may represent a hemorrhagic cyst. This measures approximately 3.6 x 2.6 x 2.9 cm. Adjacent ovarian follicles. Normal color Doppler flow to the surrounding right ovary. Small amount of fluid surrounding the right ovary in the right adnexa. Left ovary measures 3.1 x 2.3 x 2.6 cm. Dominant follicle versus small cyst with a thick septation measuring 2.2 x 1.6 x 2.1 cm. Normal color Doppler flow to the left ovary. The ovarian cysts are smaller in size with the left ovarian cyst appearing more simple compared to prior exam on 11/06/2016. Small amount of free fluid seen versus a uterine fundus. Radiologist: Inna Thomas MD Laboratory Results 04/06/17 01:48 Red Blood Count 4.39, Mean Corpuscular Volume 90.9, Mean Corpuscular Hemoglobin 29.8, Mean Corpuscular Hemoglobin Concent 32.8, Mean Platelet Volume 9.6, Neutrophils (%) (Auto) 61.3, Lymphocytes (%) (Auto) 29.3, Monocytes (%) (Auto) 8.4, Eosinophils (%) (Auto) 0.7, Basophils (%) (Auto) 0.2, Neutrophils # (Auto) 5.61, Lymphocytes # (Auto) 2.68, Monocytes # (Auto) 0.77, Eosinophils # (Auto) 0.06, Basophils # (Auto) 0.02 04/06/17 01:48 Test 04/06/17 01:45 04/06/17 01:48 04/06/17 04:15 Urine Color YELLOW Urine Appearance CLEAR (CLEAR) Urine pH 5.5 (4.5-7.5) Urine Specific [place] 1.010 (1.000-1.030) Urine Protein NEG (NEG) Urine Glucose (UA) NEG (NEG) Urine Ketones NEG (NEG) Urine Occult Blood NEG (NEG) Urine Nitrite NEG (NEG) Urine Bilirubin NEG (NEG) Urine Urobilinogen NEG (NEG) Urine Leukocyte Esterase NEG (NEG) Urine Test NEG (NEG) White Blood Count 9.15 K/uL (4.8-10.8) Red Blood Count 4.39 M/uL (4.2-5.4) Hemoglobin 13.1 g/dL (12.0-16.0) Hematocrit 39.9 % (37-47) Mean Corpuscular Volume 90.9 fL (80-100) Mean Corpuscular Hemoglobin 29.8 pg (25-34) Mean Corpuscular Hemoglobin Concent 32.8 g/dl (32-36) Platelet Count 231 K/uL (130-400) Mean Platelet Volume 9.6 fL (7.4-10.4) Neutrophils (%) (Auto) 61.3 % Lymphocytes (%) (Auto) 29.3 % Monocytes (%) (Auto) 8.4 % Eosinophils (%) (Auto) 0.7 % Basophils (%) (Auto) 0.2 % Neutrophils # (Auto) 5.61 K/uL (1.4-6.5) Lymphocytes # (Auto) 2.68 K/uL (1.2-3.4) Monocytes # (Auto) 0.77 K/uL (0.11-0.59) Eosinophils # (Auto) 0.06 K/uL (0-0.5) Basophils # (Auto) 0.02 K/uL (0-0.2) RDW Standard Deviation 44.9 fL (36.4-46.3) RDW Coefficient of Variation 13.4 % (11.5-14.5) Immature Granulocyte % (Auto) 0.1 % Immature Granulocyte # (Auto) 0.01 K/uL (0.00-0.02) Anion Gap 6.0 mmol/L (3-11) Est Creatinine Clear Calc Drug Dose 108.0 ml/min Estimated GFR () 116.9 Estimated GFR (Non- 100.9 BUN/Creatinine Ratio 16.2 (10-20) Calcium Level 9.1 mg/dl (8.5-10.1) Total Bilirubin 0.2 mg/dl (0.2-1) Aspartate Amino Transf (AST/SGOT) 12 U/L (15-37) Alanine Aminotransferase (ALT/SGPT) 20 U/L (12-78) Alkaline Phosphatase 60 U/L (45-117) Total Protein 7.5 gm/dl (6.4-8.2) Albumin 3.9 gm/dl (3.4-5.0) Globulin 3.6 gm/dl (2.5-4.0) Albumin/Globulin Ratio 1.1 (0.9-2) Date/Time Source Procedure Growth Status 04/06/17 04:15 Vaginal Swab Trichomonas Preparation - Final Complete Medications Administered Medications (Trade) Dose Ordered Sig/Анна Route Start Time Stop Time Status Last Admin Dose Admin Sodium Chloride 1,000 ml @ 999 mls/hr Q1H1M STAT IV 04/06/17 01:50 04/06/17 02:50 DC 04/06/17 01:57 999 MLS/HR Ondansetron HCl (Zofran Inj) 4 mg NOW STAT IV 04/06/17 01:50 04/06/17 01:52 DC 04/06/17 01:56 4 MG Ketorolac Tromethamine (Toradol Inj) 30 mg NOW STAT IV 04/06/17 01:50 04/06/17 01:52 DC 04/06/17 01:57 30 MG ED Course The patient was evaluated as above. Labs were drawn and IV access was obtained. Patient was medicated with 1 L normal saline solution, 4 mg Zofran and 30 mg Toradol. Patient was reevaluated and findings were discussed. Discharge instructions were reviewed with the patient. The patient verbalized understanding of my assessment and treatment plan and was discharged home in good condition. Medical Decision Differential diagnosis includes ovarian cyst, ovarian torsion, ectopic , urinary tract infection, PID, among others. The patient is a 21-year-old female who presents today complaining of pelvic pain. Labs revealed no leukocytosis, anemia or concerning electrolyte abnormalities. Urinalysis was not suggestive of infection. Urine is negative. Pelvic ultrasound was performed and did show bilateral complex ovarian cysts. Pelvic exam did not show any significant discharge. There is no cervical motion tenderness. Given the lack of leukocytosis or fever, I do not feel this represents PID and will wait for culture results. Patient's symptoms may be secondary to the ovarian cysts. She was advised to follow-up with [facility] SUPERVISOR. Based on the patient's presentation and work up, I feel the patient is stable for outpatient treatment. The patient was educated to return to the emergency department for any worsening of their current condition or new/concerning symptoms. She will follow up with [facility] DEPARTMENT SUPERVISOR. Medication Reconcilliation Current Medication List: was personally reviewed by me Blood Pressure Screening Patient's blood pressure: Elevated blood pressure Blood pressure disposition: Elevated BP felt to be situational Impression Primary Impression: Pelvic pain Departure Information Dispostion Home / Self-Care Condition GOOD Referrals No Doctor, Assigned (PCP) Patient Instructions My [facility] Additional Instructions You have been treated in the Emergency Department for your Abdominal Pain. Ultrasound showed cysts of both ovaries. Your pelvic cultures are pending. Ibuprofen: 600 mg every 6 hours for the next few days or until symptoms resolve. Call GRE[facility] DEPARTMENT SUPERVISOR Friday morning to schedule follow-up. Return to the emergency department if your symptoms persist despite treatment plan outlined above or if the following symptoms occur: Fevers, vomiting or any other new/concerning symptoms.
[2017-04-06 04:23] VITALS: BP 139/93; PULSE 69; O2SAT 100
--- NOTE | 2017-04-06 06:58 | DIAGNOSTIC IMAGING REPORT ---
PELVIC COMPLETE NON OB CLINICAL HISTORY: pelvic pain, hx cysts and PID PAIN COMPARISON STUDY: 11/06/2016 FINDINGS: The uterus measured 6.7 cm. The endometrial stripe measured 11 mm. The right ovary measured 4.9 cm with a 2.9 cm complex cyst.. The left ovary measured 3.1 cm with a 2.2 cm complex cyst.. There is no ultrasonographic evidence of ovarian torsion. It should be noted that ovarian torsion can be present with normal Doppler ultrasonographic findings. There was no evidence of pathologic free pelvic fluid. IMPRESSION: Bilateral complex ovarian cyst. Mild endometrial prominence. Otherwise negative study. The above report was generated using voice recognition software. It may contain grammatical, syntax or spelling errors. Electronically signed by: Wolf Flores M.D. 04/06/2017 6:57 AM Dictated Date/Time: 04/06/2017 6:56 AM
[2017-04-09 00:52] LABS: CHLAMYDIA TRACH RNA*** NOT DETECTED (NOT DETECTED); GC (NEIS GONORRHOEAE)RNA** NOT DETECTED (NOT DETECTED)
== END 2017-04-06 04:25 | disposition home or self-care (01) ==
LOC: C.EDB 01:01 → C.EDA 04:25
DX: R10.2 Pelvic and perineal pain (principal); R11.0 Nausea; I10 Essential (primary) hypertension; F17.210 Nicotine dependence, cigarettes, uncomplicated; Z79.899 Other long term (current) drug therapy

== ENCOUNTER 2017-04-20 21:10 | Emergency (ER) | payer BC ==
[~2017-04-20] VITALS: Ht 167.6 cm; Wt 71.2 kg
[~2017-04-20 21:10] MED LIST changes: -FOLI1TAB7 PO; -HYDR-5688 PO; -IBUP-1428 PO; +MNC50 PO; -PRENTAB26 PO
[2017-04-20 21:21] VITALS: TEMP 36.8; Ht 167.6 cm; Wt 71.2 kg
[2017-04-20] MEDS ORDERED: PANTOprazole SOD 40 MG TAB PO STA (22:28)
[2017-04-20] MEDS ORDERED: ONDANSETRON INJ 2 MG/ML 2 ML VIAL IV STA (22:28)
[2017-04-20] MEDS ORDERED: SODIUM CHLORIDE 0.9% 1000ML 1,000 ML IV ONE (22:30)
[2017-04-20] MEDS ORDERED: MoRPHine SULFATE 4 MG/ML 1 ML CARP\\VIAL IV ONE (22:30)
[2017-04-20 23:01] VITALS: O2SAT 100
[2017-04-20 23:34] LABS: POINT OF CARE TROPONIN I < 0.030 ng/ml (0-0.045)
[2017-04-20 23:39] LABS: BASO % 0.7 %; BASO ABS # 0.06 K/uL (0-0.2); COMPLETE YES; EOS % 0.7 %; HEMATOCRIT 42.5 % (37-47); IG% 0.8 %; LYMPH % 28.1 %; LYMPH ABS # 2.55 K/uL (1.2-3.4); MEAN CELL VOLUME 88.4 fL (80-100); MEAN CORPUSCULAR HEMOGLOBIN 29.9 pg (25-34); MEAN CORPUSCULAR HGB CONC 33.9 g/dl (32-36); MEAN PLATELET VOLUME 9.5 fL (7.4-10.4); MONO % 11.8 %; NEUT % 57.9 %; PLATELET COUNT 269 K/uL (130-400); RED BLOOD COUNT 4.81 M/uL (4.2-5.4); WHITE BLOOD COUNT 9.08 K/uL (4.8-10.8)
[2017-04-20 23:43] LABS: BUN/CREATININE RATIO 13.5 (10-20); CALCIUM 9.4 mg/dl (8.5-10.1); CREATININE 0.78 mg/dl (0.60-1.20); MAGNESIUM 2.3 mg/dl (1.8-2.4); POTASSIUM 3.5 mmol/L (3.5-5.1)
[2017-04-20] MEDS ORDERED: OPTIRAY 320 IV PRN (23:45)
[2017-04-20 23:51] LABS: PARTIAL THROMBOPLASTIN RATIO 0.9; PROTHROMBIN TIME (PATIENT) 10.5 SECONDS (9.0-12.0)
[2017-04-20 23:54] LABS: THYROID STIMULATING HORMONE 0.839 uIu/ml (0.300-4.500)
[2017-04-21 00:17] LABS: PREG INTERNAL NEGATIVE QC NEG CLEAR BACKGROUND; PREG INTERNAL POSITIVE QC POS CONTROL LINE
[2017-04-21 00:22] LABS: URINE APPEARANCE CLEAR (CLEAR); URINE BILIRUBIN NEG (NEG); URINE COLOR YELLOW; URINE NITRITE NEG (NEG); URINE PH 6.5 (4.5-7.5); URINE SPECIFIC GRAVITY 1.014 (1.000-1.030); UROBILINOGEN NEG (NEG); ZZUR CULT IF INDIC CLEAN CATCH NO
[2017-04-21 00:40] LABS: MANUAL MICROSCOPIC REQUIRED? NO; REVIEW REQ? NO
[2017-04-21] MEDS ORDERED: ONDANSETRON INJ 2 MG/ML 2 ML VIAL IV STA (01:21)
[2017-04-21] MEDS ORDERED: MoRPHine SULFATE 4 MG/ML 1 ML CARP\\VIAL IV ONE (01:30)
[2017-04-21] MEDS ORDERED: ONDANSETRON HOME PACK 4MG OD TAB PO ONE (02:15)
[2017-04-21] MEDS ORDERED: NORCO 5/325MG HOME PACK PO ONE (02:15)
[2017-04-21 02:35] VITALS: BP 141/87; PULSE 89; O2SAT 95
--- NOTE | 2017-04-21 04:50 | EMERGENCY ROOM VISIT NOTE ---
History First contact with patient: 22:14 Chief Complaint: GI ASSESSMENT Stated Complaint: MIGRAINE, VOMITING BLOOD Nursing Triage Summary: Pt complains of head pain and vomiting blood. It started this am. Denies any abdominal pain. History of Present Illness The patient is a 21 year old female who presents to the Emergency Room with multiple complaints bringing her to the emergency department today. The patient believes that she may have had a syncopal versus near syncopal episode today in the shower. She recalls falling and may be striking her head while in the shower. She has had a persistent headache all day. She is also subsequently developed multiple episodes of emesis, where she believes that she initially had some red blood in her vomitus. She has had persistent head pain as well as some vague abdominal discomfort. She attempted to take Advil Tylenol at home, but did vomit these back up. She has not had much to drink today since the start of symptoms. She rates her overall discomfort a 6/10. She is not complaining of chest pain, chest tightness, shortness of breath, lower abdominal pain, pelvic pain, or extremity injury. She does not have a seizure history. No recent illness. No recent travel history. Review of Systems More than 10 systems were reviewed and otherwise negative with the exception of history of present illness. Past Medical/Surgical History Medical Problems: (1) Abdominal pain (2) Appendicitis, acute (3) Appendicitis, acute (4) Exposure to bloodborne pathogen (5) Exposure to bloodborne pathogen (6) Female infertility (7) Finger avulsion (8) Gastritis (9) Gastritis (10) HTN (hypertension) (11) Pelvic pain (12) PID (acute pelvic inflammatory disease) Surgical Problems: (1) S/P appendectomy Family History Heart disease Social History Smoking Status: Never Smoker Alcohol Use: none Drug Use: none Marital Status: in relationship Housing Status: lives with significant other Occupation Status: employed Current/Historical Medications Scheduled Minocycline HCl (Minocycline HCl), 50 MG PO BID Physical Exam Vital Signs Date Time Temp Pulse Resp B/P (MAP) Pulse Ox O2 Delivery O2 Flow Rate FiO2 04/21/17 02:35 89 18 141/87 95 04/21/17 00:56 92 20 144/93 96 Room Air 04/20/17 23:22 109 138/102 88 160/111 102 160/118 04/20/17 23:06 85 04/20/17 23:01 100 Room Air 04/20/17 21:21 36.8 103 20 169/90 98 Room Air Physical Exam VITALS: Vitals are noted on the nurse's note and reviewed by myself. Vital signs stable. GENERAL: Well-developed, well-nourished, white female, who is in no acute distress and resting comfortably. Patient is cooperative with the examination. HEAD: Normocephalic atraumatic. EARS: External ear normal. External auditory canals clear, tympanic membranes pearly gomez without erythema or effusion bilaterally. EYES: Pupils equal round and reactive to light and accommodation. Conjunctivae without injection, sclerae without icterus. Extraocular movements intact. NOSE: Patent, turbinates without inflammation or discharge. MOUTH: Mucous membranes moist. Tonsils are not enlarged. Pharynx without erythema, blood, or exudate. Uvula midline. Airway patent. NECK: Supple without nuchal rigidity. No lymphadenopathy. No thyromegaly. Cervical spine is nontender. HEART: Regular rate and rhythm without murmurs gallops or rubs. LUNGS: Clear to auscultation bilaterally without wheezes, rales or rhonchi. No retractions or accessory muscle use. ABDOMEN: Positive normal bowel sounds x 4. Soft, nontender, without masses or organomegaly. No guarding or rebound tenderness. MUSCULOSKELETAL: No muscle atrophy, erythema, or edema noted. Full range of motion without joint tenderness in all extremities. No tenderness to palpation. Normal gait. Strength 5/5 throughout. NEURO: Patient was alert and oriented to person place and time. CN II through XII grossly intact. Deep tendon reflexes 2+ throughout. No focal neurological deficits SKIN: The skin was without rashes, erythema, edema, or bruising. Capillary reflex less than 2 seconds. Medical Decision & Procedures ER Provider Diagnostic Interpretation: Preliminary Findings Only See Final Report For Complete Findings CT HEAD: No acute intracranial abnormality identified. Preliminary Findings Only See Final Report For Complete Findings CTA CHEST: Impression: No pulmonary embolism. Clear lungs. No findings to account for the patient's symptoms No lymphadenopathy Heart is normal. No pericardial effusion. No findings to suggest right heart strain Pulmonary arteries are free of thrombus and normal in caliber Aorta is normal in caliber Upper abdomen is normal Laboratory Results 04/20/17 23:00 Red Blood Count 4.81, Mean Corpuscular Volume 88.4, Mean Corpuscular Hemoglobin 29.9, Mean Corpuscular Hemoglobin Concent 33.9, Mean Platelet Volume 9.5, Neutrophils (%) (Auto) 57.9, Lymphocytes (%) (Auto) 28.1, Monocytes (%) (Auto) 11.8, Eosinophils (%) (Auto) 0.7, Basophils (%) (Auto) 0.7, Neutrophils # (Auto ) 5.27, Lymphocytes # (Auto) 2.55, Monocytes # (Auto) 1.07, Eosinophils # (Auto ) 0.06, Basophils # (Auto) 0.06 04/20/17 23:00 Test 04/20/17 23:00 04/20/17 23:01 04/20/17 23:16 White Blood Count 9.08 K/uL (4.8-10.8) Red Blood Count 4.81 M/uL (4.2-5.4) Hemoglobin 14.4 g/dL (12.0-16.0) Hematocrit 42.5 % (37-47) Mean Corpuscular Volume 88.4 fL (80-100) Mean Corpuscular Hemoglobin 29.9 pg (25-34) Mean Corpuscular Hemoglobin Concent 33.9 g/dl (32-36) Platelet Count 269 K/uL (130-400) Mean Platelet Volume 9.5 fL (7.4-10.4) Neutrophils (%) (Auto) 57.9 % Lymphocytes (%) (Auto) 28.1 % Monocytes (%) (Auto) 11.8 % Eosinophils (%) (Auto) 0.7 % Basophils (%) (Auto) 0.7 % Neutrophils # (Auto) 5.27 K/uL (1.4-6.5) Lymphocytes # (Auto) 2.55 K/uL (1.2-3.4) Monocytes # (Auto) 1.07 K/uL (0.11-0.59) Eosinophils # (Auto) 0.06 K/uL (0-0.5) Basophils # (Auto) 0.06 K/uL (0-0.2) RDW Standard Deviation 42.4 fL (36.4-46.3) RDW Coefficient of Variation 13.1 % (11.5-14.5) Immature Granulocyte % (Auto) 0.8 % Immature Granulocyte # (Auto) 0.07 K/uL (0.00-0.02) Prothrombin Time 10.5 SECONDS (9.0-12.0) Prothromb Time International Ratio 1.0 (0.9-1.1) Activated Partial Thromboplast Time 23.6 SECONDS (21.0-31.0) Partial Thromboplastin Ratio 0.9 Anion Gap 6.0 mmol/L (3-11) Est Creatinine Clear Calc Drug Dose 113.4 ml/min Estimated GFR () 124.2 Estimated GFR (Non- 107.2 BUN/Creatinine Ratio 13.5 (10-20) Calcium Level 9.4 mg/dl (8.5-10.1) Magnesium Level 2.3 mg/dl (1.8-2.4) Total Bilirubin 0.5 mg/dl (0.2-1) Aspartate Amino Transf (AST/SGOT) 21 U/L (15-37) Alanine Aminotransferase (ALT/SGPT) 27 U/L (12-78) Alkaline Phosphatase 68 U/L (45-117) Total Protein 8.5 gm/dl (6.4-8.2) Albumin 4.3 gm/dl (3.4-5.0) Globulin 4.2 gm/dl (2.5-4.0) Albumin/Globulin Ratio 1.0 (0.9-2) Lipase 116 U/L (73-393) Thyroid Stimulating Hormone (TSH) 0.839 uIu/ml (0.300-4.500) Urine Color YELLOW Urine Appearance CLEAR (CLEAR) Urine pH 6.5 (4.5-7.5) Urine Specific [place] 1.014 (1.000-1.030) Urine Protein NEG (NEG) Urine Glucose (UA) NEG (NEG) Urine Ketones NEG (NEG) Urine Occult Blood TRACE (NEG) Urine Nitrite NEG (NEG) Urine Bilirubin NEG (NEG) Urine Urobilinogen NEG (NEG) Urine Leukocyte Esterase NEG (NEG) Urine WBC (Auto) 0 /hpf (0-5) Urine RBC (Auto) 0-4 /hpf (0-4) Urine Hyaline Casts (Auto) 0 /lpf (0-5) Urine Epithelial Cells (Auto) 5-10 /lpf (0-5) Urine Bacteria (Auto) NEG (NEG) Urine Test NEG (NEG) Bedside D-Dimer > 450 ng/mlFEU (0-450) Bedside Troponin I < 0.030 ng/ml (0-0.045) Medications Administered Medications (Trade) Dose Ordered Sig/Анна Route Start Time Stop Time Status Last Admin Dose Admin Morphine Sulfate (MoRPHine SULFATE INJ) 4 mg NOW ONCE IV 04/20/17 22:30 04/20/17 22:31 DC 04/20/17 23:25 4 MG Ondansetron HCl (Zofran Inj) 4 mg NOW STAT IV 04/20/17 22:28 04/20/17 22:30 DC 04/20/17 23:25 4 MG Sodium Chloride 1,000 ml @ 999 mls/hr Q1H1M ONCE IV 04/20/17 22:30 04/20/17 23:30 DC 04/20/17 23:25 999 MLS/HR Pantoprazole Sodium (Protonix Tab) 40 mg NOW STAT PO 04/20/17 22:28 04/20/17 22:30 DC 04/20/17 23:25 40 MG Ondansetron HCl (Zofran Inj) 4 mg NOW STAT IV 04/21/17 01:21 04/21/17 01:22 DC 04/21/17 01:26 4 MG Morphine Sulfate (MoRPHine SULFATE INJ) 4 mg NOW ONCE IV 04/21/17 01:30 04/21/17 01:31 DC 04/21/17 01:26 4 MG ED Course Physical exam and history were performed. Nursing notes, EMR, and Medication List were personally reviewed. Patient appears to have had several vague symptoms today that seemed to have begun with a fall versus syncopal episode in the shower. The patient does not appear toxic on examination. IV access was established and labs were obtained. She was hydrated and medicated as above. X-rays were obtained and did not show significant findings. The patient's blood work is as above and was reviewed. She does not have a significantly elevated white blood cell count, gross anemia, bandemia, or significant electrolyte imbalance. Her troponin 1 is negative. D-dimer was elevated and because of this I did elect to perform a CT scan of her chest for PE, as well as a CT scan of her head. The CT of the chest does not show PE or other acute process. Head CT was also negative. I discussed the results at length with the patient, who feels much better after pain and nausea medication. I will provide her a home pack of both Vicodin and Zofran. The patient's symptoms certainly could be related to a fall or near syncopal episode with closed head injury symptoms. I do recommend that she follow closely with her PCP. She was otherwise invited back to the ER with any new, worsening, or concerning symptoms. The chart was completed utilizing [employer] Speech Voice Recognition Software. Grammatical errors, random word insertions, pronoun errors, and incomplete sentences are an occasional consequence of this system due to software limitations, ambient noise, and hardware issues. Any formal questions or concerns about the content, text, or information contained within the body of this dictation should be directly addressed to the provider for clarification. . Medical Decision Differential diagnosis: Etiologies such as concussion, contusion, fracture, subdural hematoma, epidural hematoma, intraparenchymal hemorrhage, as well as other traumatic pathologies were entertained. Impression Primary Impression: Headache Additional Impressions: Nausea Near syncope Departure Information Dispostion Home / Self-Care Condition GOOD Forms HOME CARE DOCUMENTATION FORM, IMPORTANT VISIT INFORMATION Patient Instructions My [facility] Additional Instructions You were seen and evaluated today on an emergency basis only. This is not a substitute for, or an effort to provide, complete comprehensive medical care. It is not possible to recognize and treat all injuries or illnesses in a single emergency department visit. For this reason it is recommended that you followup with your primary care physician in the next 1-2 days for recheck of your condition. Drink plenty of fluids and remain well hydrated. For baseline pain relief you may alternate ibuprofen and acetaminophen every 4 hours for pain control. Take 600 mg ibuprofen (Advil) and then 4 hours later take 1000 mg acetaminophen (Tylenol). Do not take more than 3000 mg acetaminophen in a single day. [place] (hydrocodone/acetaminophen) 5/325 mg (homepack) 1 tablet every 6 hours as needed for worsening breakthrough pain. Do not drink or drive on [place]. This medication will likely make you tired. Do not take [place] and Tylenol at the same time as both contain acetaminophen. [place] may cause constipation. You may wish to take an [id number] stool softener like Colace if this occurs. Zofran 4 mg ODT (homepack): 1 tablet every 6 hrs as needed for nausea. You are welcome to return to the emergency department anytime with new, worsening, or concerning symptoms. Problem Qualifiers
--- NOTE | 2017-04-21 06:36 | DIAGNOSTIC IMAGING REPORT ---
PA CHEST RADIOGRAPH AND UPRIGHT AND SUPINE AP RADIOGRAPHS OF THE ABDOMEN CLINICAL HISTORY: Nausea and vomiting. COMPARISON STUDY: CT of the abdomen and pelvis January 31, [address] July 16, 2016. FINDINGS: Lung volumes are normal. Lungs are clear. No pneumothorax or pleural effusion is present. Pulmonary vascularity is normal. Cardiomediastinal silhouette is normal. There is no free air. The bowel gas pattern is normal. IMPRESSION: 1. No free air or evidence of bowel obstruction. 2. No acute cardiopulmonary findings. Electronically signed by: Moe Lora M.D. 04/21/2017 6:35 AM Dictated Date/Time: 04/21/2017 6:34 AM
--- NOTE | 2017-04-21 06:44 | DIAGNOSTIC IMAGING REPORT ---
CT OF THE HEAD WITHOUT CONTRAST CLINICAL HISTORY: Syncope. Head injury. COMPARISON STUDY: No previous studies for comparison. CT DOSE: 537.48 mGy.cm TECHNIQUE: Helical axial images of the head were obtained without IV contrast. Automated exposure control was utilized for the study. A dose lowering technique was utilized adhering to the principles of ALARA. FINDINGS: No acute intracranial hemorrhage, midline shift or mass effect is present. Brain volume is normal. Ventricular system is normal. Basilar cisterns are patent. There are no extra-axial collections. Spivey-white differentiation is maintained. There is no calvarial fracture. Visualized portions of the sinuses and mastoid air cells are clear. IMPRESSION: 1. No acute intracranial findings. 2. No calvarial fracture. Electronically signed by: Moe Lora M.D. 04/21/2017 6:42 AM Dictated Date/Time: 04/21/2017 6:41 AM
--- NOTE | 2017-04-21 07:15 | DIAGNOSTIC IMAGING REPORT ---
CT ANGIOGRAPHY OF THE CHEST, PULMONARY EMBOLUS PROTOCOL CLINICAL HISTORY: Syncope with elevated d-dimer. COMPARISON STUDY: Chest CT July 16, 2016. TECHNIQUE: Following IV administration of 92 mL of Optiray-320, helical axial images of the chest were obtained utilizing the pulmonary embolus protocol. Maximal intensity projections and sagittal and coronal reformats were viewed on an independent 3D workstation. IV contrast was administered without complication. A dose lowering technique was utilized adhering to the principles of ALARA. CT DOSE: 223.87 mGy.cm FINDINGS: No pulmonary emboli are identified. There is no evidence of thoracic aortic dissection. The size of the heart is normal. There is no pericardial effusion. Central airways are patent. There is no consolidation. No pneumothorax or pleural effusion is present. Bony thorax and upper abdomen are unremarkable. IMPRESSION: 1. No pulmonary emboli identified. 2. No acute intrathoracic findings. Electronically signed by: Moe Lora M.D. 04/21/2017 7:14 AM Dictated Date/Time: 04/21/2017 7:10 AM
== END 2017-04-21 02:36 | disposition home or self-care (01) ==
LOC: C.EDB 21:11 → C.EDC 04-21 02:36
DX: R51 Headache (principal); R11.0 Nausea; R55 Syncope and collapse; I10 Essential (primary) hypertension

== ENCOUNTER 2017-07-01 16:41 | Emergency (ER) | payer BC ==
[~2017-07-01] VITALS: Ht 167.6 cm; Wt 71.9 kg
[2017-07-01 16:42] VITALS: TEMP 36.3; Ht 167.6 cm; Wt 71.9 kg
[2017-07-01] MEDS ORDERED: IBUPROFEN 600 MG TAB PO STA (16:52)
[2017-07-01] MEDS ORDERED: ACETAMINOPHEN 500 MG TAB PO STA (16:52)
--- NOTE | 2017-07-01 17:08 | EMERGENCY ROOM VISIT NOTE ---
History Report prepared by Preston: Joceline Montez Under the Supervision of: Dr. Kevin Small M.D. First contact with patient: 16:45 Chief Complaint: BACK PAIN Stated Complaint: CHEST AND BACK PAIN History of Present Illness The patient is a 21 year old female who presents to the Emergency Room with complaints of constant back pain beginning 2 weeks ago. The patient states that 3 weeks ago she developed a cough and cold. She reports that over the last 2 weeks the cough has improved but she has had constant back and chest pain. She notes that the pain aches and has worsened over the last few days. The patient states that her pain is worsened with coughing, deep breathing, and movement. She complains of lethargy and chills. She denies any fever, shortness of breath , abdominal pain, leg swelling, history of blood clots, and recent trips. The patient notes that she has a family history of blood clots but her mother had genetic testing and did not have the gene. She rates her pain as an 8/10 in severity. Source of History: patient Onset: 2 weeks ago Position: back Quality: ache Timing: constant Modifying Factors (Worsening): breathing, movement, other (coughing) Associated Symptoms: + chills, + chest pain, No fevers, No SOB, No abdominal pain Note: She complains of lethargy. Denies leg swelling. Review of Systems See HPI for pertinent positives & negatives. A total of 10 systems reviewed and were otherwise negative. Past Medical & Surgical Medical Problems: (1) Abdominal pain (2) Appendicitis, acute (3) Appendicitis, acute (4) Exposure to bloodborne pathogen (5) Exposure to bloodborne pathogen (6) Female infertility (7) Finger avulsion (8) Gastritis (9) Gastritis (10) HTN (hypertension) (11) Pelvic pain (12) PID (acute pelvic inflammatory disease) Surgical Problems: (1) S/P appendectomy Family History Heart disease Social History Smoking Status: Current Some Day Smoker Alcohol Use: none Drug Use: none Marital Status: in relationship Housing Status: lives with significant other Occupation Status: employed Current/Historical Medications Scheduled PRN Ibuprofen (Advil), 800 MG PO TID PRN for Pain Allergies Coded Allergies: No Known Allergies (Unverified , 04/20/17) Physical Exam Vital Signs Date Time Temp Pulse Resp B/P (MAP) Pulse Ox O2 Delivery O2 Flow Rate FiO2 07/01/17 17:19 92 07/01/17 16:42 36.3 102 18 140/87 100 Room Air Physical Exam GENERAL: Patient is in no acute distress. HEENT: No acute trauma, normocephalic atraumatic, mucous membranes moist, no nasal congestion, no scleral icterus. NECK: No stridor, no adenopathy, no meningismus, trachea is midline. LUNGS: Clear to auscultation bilaterally, no wheeze, no rhonchi, breath sounds equal. HEART: Subtle systolic murmur with a regular rate and rhythm. CHEST: Tender over the anterior lower chest wall more on the left, no rash. ABDOMEN: Soft, nontender, bowel sounds positive, no hernias, no peritonitis. EXTREMITIES: No cyanosis or edema, full range of motion of all the joints without pain or difficulty, no signs for acute trauma. NEUROLOGIC: Oriented x 3, no acute motor or sensory deficits, no focal weakness. SKIN: No rash, no jaundice, no diaphoresis. Medical Decision & Procedures ER Provider Diagnostic Interpretation: X-ray results as stated below per interpretation by me and the radiologist: CHEST 2 VIEWS ROUTINE FINDINGS: Lung volumes are normal. Lungs are clear. There is no pneumothorax or pleural effusion. Cardiac size is normal. Mediastinal contours are normal. There is no evidence of pulmonary edema. IMPRESSION: No acute cardiopulmonary findings. Electronically signed by: Moe Lora M.D. 07/01/2017 5:55 PM Dictated Date/Time: 07/01/2017 5:53 PM Laboratory Results 07/01/17 16:55 07/01/17 16:55 Test 07/01/17 16:55 Red Blood Count 4.33 M/uL (4.2-5.4) Mean Corpuscular Volume 89.4 fL (80-100) Mean Corpuscular Hemoglobin 30.3 pg (25-34) Mean Corpuscular Hemoglobin Concent 33.9 g/dl (32-36) RDW Standard Deviation 42.4 fL (36.4-46.3) RDW Coefficient of Variation 13.0 % (11.5-14.5) Mean Platelet Volume 10.2 fL (7.4-10.4) Anion Gap 7.0 mmol/L (3-11) Est Creatinine Clear Calc Drug Dose 105.8 ml/min Estimated GFR () 113.5 Estimated GFR (Non- 98.0 BUN/Creatinine Ratio 11.1 (10-20) Calcium Level 8.8 mg/dl (8.5-10.1) Total Bilirubin 0.4 mg/dl (0.2-1) Aspartate Amino Transf (AST/SGOT) 17 U/L (15-37) Alanine Aminotransferase (ALT/SGPT) 18 U/L (12-78) Alkaline Phosphatase 54 U/L (45-117) Troponin I < 0.015 ng/ml (0-0.045) Total Protein 8.0 gm/dl (6.4-8.2) Albumin 4.2 gm/dl (3.4-5.0) Globulin 3.8 gm/dl (2.5-4.0) Albumin/Globulin Ratio 1.1 (0.9-2) Laboratory results reviewed by me. Medications Administered Medications (Trade) Dose Ordered Sig/Анна Route Start Time Stop Time Status Last Admin Dose Admin Ibuprofen (Motrin Tab) 600 mg NOW STAT PO 07/01/17 16:52 07/01/17 16:55 DC 07/01/17 17:15 600 MG Acetaminophen (Tylenol Tab) 1,000 mg NOW STAT PO 07/01/17 16:52 07/01/17 16:55 DC 07/01/17 17:16 1,000 MG ECG Indication: chest pain Rate (beats per minute): 85 Rhythm: normal sinus Findings: no acute ischemic change, no ectopy ED Course 1644: The patient was evaluated in room B4. A complete history and physical exam was performed. 1651: Tylenol Tab 1000mg PO, Motrin Tab 600mg PO. 1814: Reevaluated the patient. Discussed results and discharge instructions: She verbalized understanding and agreement. The patient is ready for discharge. Medical Decision The patient is a 21 year old female who presents to the ED with complaints of back and chest pain. Differential diagnoses considered include musculoskeletal pain, pericarditis, pneumonia, bronchitis, [place], PE, aortic dissection. There is no leukocytosis or concerning anemia. No significant electrolyte abnormality, kidney failure or hepatitis. EKG shows a normal sinus rhythm, no acute ischemia. Cardiac enzyme testing times one is not consistent with acute cardiac injury. Chest x-ray does not show pneumonia, mediastinal widening or pneumothorax. On exam, patient is tender across the anterior chest wall, more on the left. I reviewed the patient's previous workups, she has had multiple CT scans of the chest for PE as she does run a high d-dimer. She has not had leg swelling, she has not had long trips. There is no immediate family history of DVT or PE and she has never had a clot. I don't think further workup for PE is warranted. Her pain does seem musculoskeletal. The patient was given oral Motrin and oral Tylenol. She is being discharged with Motrin, heat, rest and time. I suspect she has acute costochondritis. Medication Reconcilliation Current Medication List: was personally reviewed by me Blood Pressure Screening Patient's blood pressure: Elevated blood pressure Blood pressure disposition: Elevated BP felt to be situational Impression Primary Impression: Anterior chest wall pain Scribe Attestation The scribe's documentation has been prepared under my direction and personally reviewed by me in its entirety. I confirm that the note above accurately reflects all work, treatment, procedures, and medical decision making performed by me. Departure Information Dispostion Home / Self-Care Referrals Evin Champion M.D. (PCP) Forms HOME CARE DOCUMENTATION FORM, IMPORTANT VISIT INFORMATION Patient Instructions My [facility] [email or web address] Additional Instructions motrin 600 mg 3x per day for 5 days heat to the chest wall will help may use tylenol for pain as well return for worsening symptoms all heart and lung testing today was ok
[2017-07-01 17:14] LABS: HEMATOCRIT 38.7 % (37-47); MEAN CELL VOLUME 89.4 fL (80-100); MEAN CORPUSCULAR HEMOGLOBIN 30.3 pg (25-34); MEAN CORPUSCULAR HGB CONC 33.9 g/dl (32-36); MEAN PLATELET VOLUME 10.2 fL (7.4-10.4); PLATELET COUNT 198 K/uL (130-400); RED BLOOD COUNT 4.33 M/uL (4.2-5.4); WHITE BLOOD COUNT 7.39 K/uL (4.8-10.8)
[2017-07-01] MEDS ORDERED: IBUP-1050 PO (17:25)
[2017-07-01 17:32] LABS: ALT/SGPT 18 U/L (12-78); BLOOD UREA NITROGEN 9 mg/dl (7-18); BUN/CREATININE RATIO 11.1 (10-20); CALCIUM 8.8 mg/dl (8.5-10.1); CARBON DIOXIDE 25 mmol/L (21-32); CHLORIDE 105 mmol/L (98-107); CREATININE 0.84 mg/dl (0.60-1.20); GLUCOSE 88 mg/dl (70-99); POTASSIUM 3.7 mmol/L (3.5-5.1); SODIUM 136 mmol/L (136-145)
[2017-07-01 17:37] LABS: ALB/GLOB RATIO 1.1 (0.9-2); ALKALINE PHOSPHATASE 54 U/L (45-117); AST/SGOT 17 U/L (15-37)
--- NOTE | 2017-07-01 17:56 | DIAGNOSTIC IMAGING REPORT ---
CHEST 2 VIEWS ROUTINE CLINICAL HISTORY: Chest pain. COMPARISON STUDY: Chest CT April 21, 2017. FINDINGS: Lung volumes are normal. Lungs are clear. There is no pneumothorax or pleural effusion. Cardiac size is normal. Mediastinal contours are normal. There is no evidence of pulmonary edema. IMPRESSION: No acute cardiopulmonary findings. Electronically signed by: Moe Lora M.D. 07/01/2017 5:55 PM Dictated Date/Time: 07/01/2017 5:53 PM
[2017-07-01 18:46] VITALS: BP 139/72; PULSE 88; O2SAT 99
== END 2017-07-01 18:48 | disposition home or self-care (01) ==
LOC: C.EDB 16:42
DX: R07.89 Other chest pain (principal); I10 Essential (primary) hypertension; K29.70 Gastritis, unspecified, without bleeding; N73.9 Female pelvic inflammatory disease, unspecified; Z82.49 Family history of ischemic heart disease and other diseases of the circulatory system; F17.210 Nicotine dependence, cigarettes, uncomplicated

== ENCOUNTER → 2017-07-28 | Outpatient (CLI) | payer BC ==
[~2017-07-28] MED LIST changes: +IBUP-1050 PO; -MNC50 PO
== END ==
LOC: C.LAB1850 10:56
PROVIDERS: ATTEND Obstetrics & Gynecology
DX: O09.299 Supervision of pregnancy with other poor reproductive or obstetric history, unspecified trimester (principal); Z3A.00 Weeks of gestation of pregnancy not specified

== ENCOUNTER → 2017-08-06 | Outpatient (CLI) | payer BC | END | disposition home or self-care (01) | LOC: C.LAB1850 13:31 | PROVIDERS: ATTEND Obstetrics & Gynecology | DX: O09.299 Supervision of pregnancy with other poor reproductive or obstetric history, unspecified trimester (principal) ==

== ENCOUNTER 2017-08-18 12:02 | Emergency (ER) | payer BC ==
[~2017-08-18] VITALS: Ht 170.2 cm; Wt 72.8 kg
[2017-08-18 12:25] VITALS: TEMP 36.8
[2017-08-18] MEDS ORDERED: SODIUM CHLORIDE 0.9% 1000ML 1,000 ML IV STA (14:31)
[2017-08-18 14:43] VITALS: O2SAT 100; Ht 170.2 cm; Wt 72.8 kg
--- NOTE | 2017-08-18 15:13 | EMERGENCY ROOM VISIT NOTE ---
ED Visit Note First contact with patient: 14:17 CHIEF COMPLAINT: Vaginal bleeding HISTORY OF PRESENT ILLNESS: This 21-year-old female presents to the emergency department with concern for abdominal cramping and vaginal bleeding that started this morning. She reports that she is 6.5 weeks , with a history of a miscarriage one year ago. She has already been seen by OB and had her first ultrasound on 08/15/17, which she states showed a normal single with a heartbeat. She reports this morning when she got up that she noticed some cramping and had some light pink spotting, this has become more of a dark reddish brown. She denies trauma to the abdomen, recent illnesses, or rash. She does report past medical history significant for endometriosis and PCOS, and states she has also had PID twice in the past, so she is followed closely probably these issues. She reports that she was recently tested for STDs. She does not use any form of control. She states this was unplanned. REVIEW OF SYSTEMS: A complete 10 point review of systems was reviewed with the patient with pertinent positives and negatives as per history of present illness. All else were negative. PMH: Endometriosis, PCOS, PID SOCIAL HISTORY: Patient lives at home. She denies tobacco use, alcohol use, illicit drug use. PHYSICAL EXAM: Vital Signs: Reviewed Nurse's notes. CONSTITUTIONAL: Pleasant and cooperative. No acute distress. Mildly dehydrated , but otherwise well appearing and well nourished. HEENT: Normocephalic, atraumatic. Pupils equal, round and reactive to light, EOMI. TMs normal. Pharynx normal. Tacky mucous membranes. NECK: Supple, full active range of motion without discomfort. No cervical adenopathy. RESPIRATORY: Clear to auscultation bilaterally with no wheezing, crackles, rhonchi or stridor. Equal expansion bilaterally. CARDIOVASCULAR: Regular rate and rhythm with no murmurs, rubs or gallops. Normal peripheral perfusion. No edema. GASTROINTESTINAL: Soft, mildly tender across the lower abdomen, nondistended. No McBurney point tenderness. No rebound tenderness or guarding. No CVA tenderness. No palpable masses or HSM. Bowel sounds present in all quadrants. PELVIC EXAM: VULVA: No ulcers, vesicles or atrophy. VAGINA: Clear discharge, no foul odor, no blood. CERVIX: Closed, pink, nontender, no cervical motion tenderness, no discharge. UTERUS: Normal size, nontender. ADNEXA: No masses or tenderness. A nurse was present as a blogs manager during the examination. MUSCULOSKELETAL: Full range of motion of all joints without discomfort. INTEGUMENTARY: No rash or other significant dermatologic conditions noted. NEUROLOGIC: Alert and oriented X 4 with normal affect. Normal strength and sensation in all 4 extremities. No focal neurologic deficits noted. Normal speech. Normal gait observed. EMERGENCY DEPARTMENT COURSE: I examined the patient. Differential diagnosis includes threatened miscarriage, ectopic , demise, ovarian cyst, among others. She has very mild tenderness across the lower abdomen, she describes as cramping. No heavy bleeding or tissue within cervical os noted on pelvic exam. She is initially noted to be hypertensive and mildly tachycardic. Labs reviewed, no leukocytosis or anemia, no significant electrolyte abnormalities, normal renal function, normal liver enzymes. Beta Quant hCG is elevated consistent with . UA negative for infection, but shows 3+ ketones consistent with dehydration, the patient was given IV fluid bolus for this. I was able to obtain records from her OB visit on 08/15/17 regarding her ultrasound report, which shows a single IUP of 6 weeks 0 days and positive cardiovascular activity heart rate of 111 bpm. Given the patient has already had her ultrasound to establish IUP, I do not feel a second ultrasound is necessary at this time, as we can most likely rule out ectopic. The hypertension and tachycardia are resolved after IV fluids. I did have discussion with the patient regarding threatened miscarriage, encouraged her to follow closely with her OB in the next few days to have a repeat beta Quant hCG , as well as give her strict return precautions should her symptoms worsen, she verbalized understanding. The patient was discharged home in stable condition and ambulatory. Medication Reconciliation: I attest that I have personally reviewed the patient' s current medication list. Blood pressure screening: The patient was found to have an elevated blood pressure, which was felt to be situational, however as she is , she was encouraged to have her BP rechecked by her OB provider. I discussed the patient with Dr. Hinkle, who agrees with my assessment and plan. Problem List Medical Problems: (1) Abdominal pain Status: Resolved (2) Appendicitis, acute Status: Resolved (3) Appendicitis, acute Status: Resolved (4) Exposure to bloodborne pathogen Status: Resolved (5) Exposure to bloodborne pathogen Status: Resolved (6) Finger avulsion Status: Resolved (7) Gastritis Status: Resolved (8) Gastritis Status: Resolved (9) HTN (hypertension) Status: Resolved Surgical Problems: (1) S/P appendectomy Status: Resolved Current/Historical Medications Scheduled PRN Ibuprofen (Advil), 800 MG PO TID PRN for Pain Allergies Coded Allergies: No Known Allergies (Unverified , 08/18/17) Vital Signs Date Time Temp Pulse Resp B/P (MAP) Pulse Ox O2 Delivery O2 Flow Rate FiO2 08/18/17 16:43 88 18 110/86 98 Room Air 08/18/17 15:21 88 08/18/17 14:43 100 Room Air 08/18/17 14:25 92 18 157/81 100 Room Air 08/18/17 12:25 36.8 93 18 150/88 99 Room Air Laboratory Results 08/18/17 14:45 Red Blood Count 4.38, Mean Corpuscular Volume 88.1, Mean Corpuscular Hemoglobin 30.4, Mean Corpuscular Hemoglobin Concent 34.5, Mean Platelet Volume 9.9, Neutrophils (%) (Auto) 66.6, Lymphocytes (%) (Auto) 23.4, Monocytes (%) (Auto) 9.5, Eosinophils (%) (Auto) 0.2, Basophils (%) (Auto) 0.2, Neutrophils # (Auto) 5.85, Lymphocytes # (Auto) 2.06, Monocytes # (Auto) 0.84, Eosinophils # (Auto) 0.02, Basophils # (Auto) 0.02 08/18/17 14:45 Test 08/18/17 14:27 08/18/17 14:45 08/18/17 15:31 Urine Color YELLOW Urine Appearance CLEAR (CLEAR) Urine pH 5.0 (4.5-7.5) Urine Specific [place] 1.020 (1.000-1.030) Urine Protein NEG (NEG) Urine Glucose (UA) NEG (NEG) Urine Ketones 3+ (NEG) Urine Occult Blood NEG (NEG) Urine Nitrite NEG (NEG) Urine Bilirubin NEG (NEG) Urine Urobilinogen NEG (NEG) Urine Leukocyte Esterase NEG (NEG) White Blood Count 8.80 K/uL (4.8-10.8) Red Blood Count 4.38 M/uL (4.2-5.4) Hemoglobin 13.3 g/dL (12.0-16.0) Hematocrit 38.6 % (37-47) Mean Corpuscular Volume 88.1 fL (80-100) Mean Corpuscular Hemoglobin 30.4 pg (25-34) Mean Corpuscular Hemoglobin Concent 34.5 g/dl (32-36) Platelet Count 206 K/uL (130-400) Mean Platelet Volume 9.9 fL (7.4-10.4) Neutrophils (%) (Auto) 66.6 % Lymphocytes (%) (Auto) 23.4 % Monocytes (%) (Auto) 9.5 % Eosinophils (%) (Auto) 0.2 % Basophils (%) (Auto) 0.2 % Neutrophils # (Auto) 5.85 K/uL (1.4-6.5) Lymphocytes # (Auto) 2.06 K/uL (1.2-3.4) Monocytes # (Auto) 0.84 K/uL (0.11-0.59) Eosinophils # (Auto) 0.02 K/uL (0-0.5) Basophils # (Auto) 0.02 K/uL (0-0.2) RDW Standard Deviation 41.8 fL (36.4-46.3) RDW Coefficient of Variation 12.9 % (11.5-14.5) Immature Granulocyte % (Auto) 0.1 % Immature Granulocyte # (Auto) 0.01 K/uL (0.00-0.02) Anion Gap 7.0 mmol/L (3-11) Est Creatinine Clear Calc Drug Dose 135.1 ml/min Estimated GFR () 146.5 Estimated GFR (Non- 126.4 BUN/Creatinine Ratio 10.8 (10-20) Calcium Level 9.1 mg/dl (8.5-10.1) Total Bilirubin 0.5 mg/dl (0.2-1) Aspartate Amino Transf (AST/SGOT) 13 U/L (15-37) Alanine Aminotransferase (ALT/SGPT) 21 U/L (12-78) Alkaline Phosphatase 50 U/L (45-117) Total Protein 7.9 gm/dl (6.4-8.2) Albumin 4.0 gm/dl (3.4-5.0) Globulin 3.9 gm/dl (2.5-4.0) Albumin/Globulin Ratio 1.0 (0.9-2) Human Chorionic Gonadotropin, Quant 16772 mIU/mL Medications Administered Medications (Trade) Dose Ordered Sig/Анна Route Start Time Stop Time Status Last Admin Dose Admin Sodium Chloride 1,000 ml @ 999 mls/hr Q1H1M STAT IV 08/18/17 14:31 08/18/17 15:31 DC 08/18/17 14:59 999 MLS/HR Departure Information Impression Primary Impression: Threatened miscarriage in early Dispostion Home / Self-Care Condition GOOD Referrals Evin Champion M.D. (PCP) Aleksandra Muse M.D.([employer] SET [employer]IP/OB) Patient Instructions ED Miscarriage Poss, My [facility] Additional Instructions You should follow-up with OB in the next 2 days to have your beta hCG Quant level rechecked. Your level today is 40,231. Some abdominal cramping and spotting can be normal in the first trimester, but these symptoms are always a concern for possible miscarriage. Signs/symptoms of a progression towards miscarriage would include increased or heavy bleeding, bright red blood, or passing blood clots. You may take Tylenol 1000 mg every 8 hours as needed for pain. You may also apply a heating pad to your lower abdomen to help with abdominal cramps. Please return to the ER for any worsening symptoms, including severe worsening pain, heavy vaginal bleeding (soaking through more than 1 pad per hour), dizziness or passing out, fevers/chills/feeling ill, or any other concerns. Work Instructions Return To Work: 2 days
[2017-08-18 15:16] LABS: BASO % 0.2 %; BASO ABS # 0.02 K/uL (0-0.2); EOS % 0.2 %; EOS ABS # 0.02 K/uL (0-0.5); HEMATOCRIT 38.6 % (37-47); HEMOGLOBIN 13.3 g/dL (12.0-16.0); IG# 0.01 K/uL (0.00-0.02); LYMPH % 23.4 %; LYMPH ABS # 2.06 K/uL (1.2-3.4); MEAN CELL VOLUME 88.1 fL (80-100); MEAN CORPUSCULAR HEMOGLOBIN 30.4 pg (25-34); MEAN CORPUSCULAR HGB CONC 34.5 g/dl (32-36); MEAN PLATELET VOLUME 9.9 fL (7.4-10.4); MONO % 9.5 %; MONO ABS # 0.84 K/uL (0.11-0.59); NEUT % 66.6 %; NEUT ABS # 5.85 K/uL (1.4-6.5); PLATELET COUNT 206 K/uL (130-400); RED CELL DISTRIBUTION WIDTH CV 12.9 % (11.5-14.5); RED CELL DISTRIBUTION WIDTH SD 41.8 fL (36.4-46.3)
[2017-08-18 15:47] LABS: CALCIUM 9.1 mg/dl (8.5-10.1); CREATININE 0.63 mg/dl (0.60-1.20); POTASSIUM 3.8 mmol/L (3.5-5.1)
[2017-08-18 15:50] LABS: TOTAL PROTEIN 7.9 gm/dl (6.4-8.2)
[2017-08-18 16:43] VITALS: BP 110/86; PULSE 88; O2SAT 98
== END 2017-08-18 17:13 | disposition home or self-care (01) ==
LOC: C.EDB 12:06 → C.EDC 17:13
DX: O20.0 Threatened abortion (principal); Z3A.01 Less than 8 weeks gestation of pregnancy; O99.281 Endocrine, nutritional and metabolic diseases complicating pregnancy, first trimester; E28.2 Polycystic ovarian syndrome; O10.011 Pre-existing essential hypertension complicating pregnancy, first trimester; O26.891 Other specified pregnancy related conditions, first trimester; N80.9 Endometriosis, unspecified; R00.0 Tachycardia, unspecified; Z90.89 Acquired absence of other organs

== ENCOUNTER → 2017-08-28 | Outpatient (CLI) | payer BC ==
[2017-08-28 17:35] LABS: BASO % 0.2 %; BASO ABS # 0.02 K/uL (0-0.2); EOS % 0.5 %; EOS ABS # 0.05 K/uL (0-0.5); HEMATOCRIT 37.8 % (37-47); HEMOGLOBIN 12.7 g/dL (12.0-16.0); IG# 0.01 K/uL (0.00-0.02); LYMPH % 27.5 %; LYMPH ABS # 2.69 K/uL (1.2-3.4); MEAN CELL VOLUME 88.7 fL (80-100); MEAN CORPUSCULAR HEMOGLOBIN 29.8 pg (25-34); MEAN CORPUSCULAR HGB CONC 33.6 g/dl (32-36); MEAN PLATELET VOLUME 10.2 fL (7.4-10.4); MONO % 8.5 %; MONO ABS # 0.83 K/uL (0.11-0.59); NEUT % 63.2 %; NEUT ABS # 6.18 K/uL (1.4-6.5); PLATELET COUNT 220 K/uL (130-400); RED CELL DISTRIBUTION WIDTH CV 13.2 % (11.5-14.5); RED CELL DISTRIBUTION WIDTH SD 42.7 fL (36.4-46.3); WHITE BLOOD COUNT 9.78 K/uL (4.8-10.8)
== END | disposition home or self-care (01) ==
LOC: C.LAB1850 16:24
PROVIDERS: ATTEND Obstetrics & Gynecology
DX: Z34.01 Encounter for supervision of normal first pregnancy, first trimester (principal); Z3A.00 Weeks of gestation of pregnancy not specified

== ENCOUNTER → 2017-10-15 | Outpatient (CLI) | payer BC | END | disposition home or self-care (01) | LOC: C.LABSPEC 15:28 | PROVIDERS: ATTEND Obstetrics & Gynecology | DX: R39.9 Unspecified symptoms and signs involving the genitourinary system (principal) ==

== ENCOUNTER 2018-02-14 20:28 | Emergency (ER) | payer OTHER ==
[~2018-02-14] VITALS: Ht 172.7 cm; Wt 84.9 kg
[~2018-02-14 20:28] MED LIST changes: -IBUP-1050 PO; +NITR-5 PO; +PRENTAB26 PO
[2018-02-14 20:40] VITALS: TEMP 37; Ht 172.7 cm; Wt 84.9 kg
[2018-02-14] MEDS ORDERED: METH4PAK PO (21:38)
--- NOTE | 2018-02-14 22:15 | EMERGENCY ROOM VISIT NOTE ---
History Report prepared by Preston: Teresita Ga Under the Supervision of: Dr. Ciro Block M.D. First contact with patient: 20:56 Chief Complaint: RASH Stated Complaint: RASH. 33 WEEKS PREG History of Present Illness The patient is a 22 year old female who presents to the Emergency Room with complaints of worsening rash starting 5 days ago. She is currently 32-33 weeks . The rash first started in her groin. She spoke with Button Breaker Operator who started her on nystatin which has not helped. She has now been developing a rash on her abdomen, back, arms, legs, and face over the past few days. The rash is bumpy, itchy, and burning. She has had difficulty sleeping because of the itchiness. She has tried taking Benadryl which briefly relieves the itching. Her tongue has been feeling "weird" for the past 2-3 hours. She denies any fever, trouble swallowing, sore throat, increased SOB, abdominal cramping, or vaginal bleeding. She lives with her boyfriend who has not had any rash. 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 She has not had any known sick contacts. She has a history of hypertension and has been on atenolol for a long time. She is also on vitamins. Source of History: patient Onset: 5 days ago Position: arm (bilateral), abdomen, back, leg (bilateral), other (face) Quality: other (rash) Timing: worsening Associated Symptoms: No fevers, No sorethroat, No SOB, No abdominal pain Note: Pt denies vaginal bleeding. Review of Systems See HPI for pertinent positives & negatives. A total of 10 systems reviewed and were otherwise negative. Past Medical & Surgical Medical Problems: (1) Abdominal pain (2) Abdominal pain affecting (3) Appendicitis, acute (4) Appendicitis, acute (5) Exposure to bloodborne pathogen (6) Exposure to bloodborne pathogen (7) Female infertility (8) Finger avulsion (9) Gastritis (10) Gastritis (11) HTN (hypertension) (12) Pelvic pain (13) PID (acute pelvic inflammatory disease) Surgical Problems: (1) S/P appendectomy Old medical records were reviewed. Nurse's notes were reviewed and I agree with. Family History Heart disease Social History Smoking Status: Never Smoker Alcohol Use: none Drug Use: none Marital Status: in relationship Housing Status: lives with significant other Occupation Status: employed Current/Historical Medications Scheduled Methylprednisolone (Medrol Dosepak), 0 PO DAILY Multivit/Min/Iron/Fol Ac/Pren ( Vitamin), 1 TAB PO DAILY Nitrofurantoin Monohyd Macrocr (Macrobid), 100 MG PO BID Allergies Coded Allergies: No Known Allergies (Unverified , 08/18/17) Physical Exam Vital Signs Date Time Temp Pulse Resp B/P (MAP) Pulse Ox O2 Delivery O2 Flow Rate FiO2 02/14/18 22:19 87 20 145/82 96 02/14/18 20:40 37.0 98 18 133/82 98 Room Air Physical Exam General: Gravid young female in no acute distress. HEENT: Normal cephalic atraumatic. Pupils are equal round and reactive to light. Extraocular movements are intact. Oropharynx is pink with moist mucous membranes. No swelling of the mouth lips or tongue. Neck: Supple with a midline trachea. No meningeal signs or stiffness, no JVD or bruits. No Stridor. Chest: Clear to auscultation bilaterally. No wheezes or rhonchi. No increased work of breathing. Heart: regular rate and rhythm. Abdomen: Soft nontender, nondistended without rebound guarding or rigidity. Extremities: No cyanosis clubbing or edema. No calf tenderness or assymetry Spine/Back. Non tender to palpation. No CVA tenderness Skin: Red small raised papules mostly on the abdomen and back. There are a few on the chin. No swelling of the mouth, lips, or tongue. Rash is confluent under the breasts. Neurologic exam: Cranial nerves two through 12 are intact. Motor and sensation are intact and symmetrical throughout. Medical Decision & Procedures Medications Administered Medications (Trade) Dose Ordered Sig/Анна Route Start Time Stop Time Status Last Admin Dose Admin Prednisone (PredniSONE TAB) 60 mg NOW STAT PO 02/14/18 21:35 02/14/18 21:36 DC 02/14/18 21:44 60 MG ED Course 2101: Past medical records reviewed. The patient was evaluated in room C2B, and a complete history and physical examination were performed. 2131: I discussed the patient's case with Dr. Muse, [facility] Button Breaker Operator. She agrees with steroids for the patient. 2134: Prednisone 60 mg PO. 2138: Upon reevaluation, the patient is resting comfortably. I discussed the results and treatment plan with her. She verbalized agreement of the treatment plan. The patient was discharged home. Medical Decision Differentials include, but are not limited to; infection, allergic reaction, rash, complication, scabies. This patient comes in as described above she has had a rash that has been itchy this been going on since Friday. It has gotten worse. It started on her abdomen. she has some on her face underneath her chin as well as her extremities in her groin area and under her breasts. She did try antifungal cream without relief. She has had no fever or systemic complaints. No problems with the . On exam, there are no petechiae this is not vasculitic appearing. There is no blisters andf there is nothing to suggest this looks like krzv-unnh-xuo-mouth disease. It does not appear to be consistent with scabies and her live-in boyfriend does not have the rash either. It may be viral related. She does have one small spot on her palate and she has no evidence of any airway compromise. This may be PUPPS and the main treatment would be delivery. She is 32 weeks. I did discuss this with Dr. Muse, the on-call mortgage loan processing clerk, she agrees with started her on a short course of steroids we gave her Medrol Dosepak as well as some prednisone p.o. here to start for tonight. This may help her symptomatically she continues Benadryl. She should return if: Fever or chills, worsening of symptoms, any problems follow-up with her mortgage loan processing clerk in the office this week and if need be they can get her in with a underwriting intern. She was happy the plan and discharged to home. Medication Reconcilliation Current Medication List: was personally reviewed by me Blood Pressure Screening Patient's blood pressure: Elevated blood pressure Blood pressure disposition: Elevated BP felt to be situational Consults Time Called: 2115 Consulting Physician: Dr. Muse, [facility] Button Breaker Operator Returned Call: 2131 I discussed the patient's case with her. She agrees with steroids for the patient. Impression Primary Impression: Rash Additional Impression: Scribe Attestation The scribe's documentation has been prepared under my direction and personally reviewed by me in its entirety. I confirm that the note above accurately reflects all work, treatment, procedures, and medical decision making performed by me. Departure Information Dispostion Home / Self-Care Prescriptions Methylprednisolone (MEDROL DOSEPAK) 4 Mg Eusebio 0 PO DAILY, #1 PKT Prov: Ciro Block M.D. 02/14/18 Referrals Evin Champion M.D. Forms HOME CARE DOCUMENTATION FORM, IMPORTANT VISIT INFORMATION, WORK / SCHOOL INSTRUCTIONS Patient Instructions My [facility] Additional Instructions Rest. Drink plenty of fluids. May use Benadryl 25 mg every 8 hours as needed Use Medrol dose pack Return if: Worsening of symptoms, fever or chills, any new problems or concerns , problems with the . Problem Qualifiers
[2018-02-14 22:19] VITALS: BP 145/82; PULSE 87; O2SAT 96
== END 2018-02-14 22:19 | disposition home or self-care (01) ==
LOC: C.EDB 20:29 → C.EDC 22:19
DX: O99.713 Diseases of the skin and subcutaneous tissue complicating pregnancy, third trimester (principal); Z3A.32 32 weeks gestation of pregnancy; R21 Rash and other nonspecific skin eruption

== ENCOUNTER → 2018-02-19 | Outpatient (CLI) | payer OTHER ==
[~2018-02-19] MED LIST changes: +METH4PAK PO
[2018-02-19 16:55] LABS: ALBUMIN 3.1 gm/dl (3.4-5.0); ALKALINE PHOSPHATASE 129 U/L (45-117); ALT/SGPT 17 U/L (12-78); AST/SGOT 13 U/L (15-37); BLOOD UREA NITROGEN 11 mg/dl (7-18); CALCIUM 8.8 mg/dl (8.5-10.1); CARBON DIOXIDE 20 mmol/L (21-32); CREATININE 0.57 mg/dl (0.60-1.20); GLUCOSE 71 mg/dl (70-99); POTASSIUM 3.6 mmol/L (3.5-5.1); SODIUM 135 mmol/L (136-145); TOTAL PROTEIN 7.5 gm/dl (6.4-8.2)
== END | disposition home or self-care (01) ==
LOC: C.LAB1850 15:45
PROVIDERS: ATTEND Obstetrics & Gynecology
DX: L29.9 Pruritus, unspecified (principal)

== ENCOUNTER 2018-03-02 16:07 | Outpatient (CLI) | payer OTHER ==
[~2018-03-02 16:07] MED LIST changes: -METH4PAK PO
[2018-03-02 16:58] LABS: HEMATOCRIT 36.9 % (37-47); HEMOGLOBIN 12.7 g/dL (12.0-16.0); MEAN CELL VOLUME 93.4 fL (80-100); MEAN CORPUSCULAR HEMOGLOBIN 32.2 pg (25-34); MEAN CORPUSCULAR HGB CONC 34.4 g/dl (32-36); MEAN PLATELET VOLUME 10.1 fL (7.4-10.4); PLATELET COUNT 176 K/uL (130-400); RED CELL DISTRIBUTION WIDTH CV 12.9 % (11.5-14.5); RED CELL DISTRIBUTION WIDTH SD 44.4 fL (36.4-46.3); WHITE BLOOD COUNT 12.66 K/uL (4.8-10.8)
[2018-03-02 17:26] LABS: ALBUMIN 3.1 gm/dl (3.4-5.0); ALKALINE PHOSPHATASE 132 U/L (45-117); ALT/SGPT 16 U/L (12-78); AST/SGOT 14 U/L (15-37); BLOOD UREA NITROGEN 9 mg/dl (7-18); CARBON DIOXIDE 22 mmol/L (21-32); GLUCOSE 70 mg/dl (70-99); POTASSIUM 3.3 mmol/L (3.5-5.1); SODIUM 138 mmol/L (136-145); TOTAL PROTEIN 7.5 gm/dl (6.4-8.2)
[2018-03-02 19:15] LABS: URIC ACID 4.6 mg/dl (2.6-7.2)
== END 2018-03-02 18:40 | disposition home or self-care (01) ==
LOC: C.LD 16:07 → C.OPB 16:07
PROVIDERS: ATTEND Obstetrics & Gynecology
DX: O99.89 Other specified diseases and conditions complicating pregnancy, childbirth and the puerperium (principal); R03.0 Elevated blood-pressure reading, without diagnosis of hypertension; Z3A.34 34 weeks gestation of pregnancy

== ENCOUNTER 2020-12-27 14:17 | Observation (INO) ==
[2020-12-27] MEDS ORDERED: ACETAMINOPHEN 325 MG TAB PO PRN (15:05)
[2020-12-27 15:26] LABS: Basophils # (auto) 0.01 K/uL (0-0.2); Basophils % (auto) 0.1 %; Hematocrit (blood only) 35.4 % (37-47); Hemoglobin 12.2 g/dL (12.0-16.0); Immature Granulocytes # (auto) 0.02 K/uL (0.00-0.02); Immature Granulocytes % (auto) 0.2 %; Lymphocytes # (auto) 2.37 K/uL (1.2-3.4); Lymphocytes % (auto) 23.6 %; Mean Corpuscular Hemoglobin 31.9 pg (25-34); Mean Corpuscular Volume 92.7 fL (80-100); Mean Platelet Volume 11.3 fL (7.4-10.4); Monocytes # (auto) 0.73 K/uL (0.11-0.59); Monocytes % (auto) 7.3 %; Neutrophils # (auto) 6.83 K/uL (1.4-6.5); Neutrophils % (auto) 67.8 %; Platelet Count 187 K/uL (130-400); RDW Coefficient of Variation 13.2 % (11.5-14.5); RDW Standard Deviation 44.1 fL (36.4-46.3); Red Blood Count 3.82 M/uL (4.2-5.4); White Blood Count 10.06 K/uL (4.8-10.8)
[2020-12-27 15:49] LABS: Creatinine Clr Calc Pharmacy 156.4 ml/min; Est GFR (African American) 142.5 ml/min; Est GFR (Non-African American) 122.9 ml/min
[2020-12-27 16:00] LABS: Creatinine Urine Random 13.7 mg/dl; Total Protein Urine Random < 5.0 mg/dl (0-11.9)
[2020-12-27 16:13] LABS: Mean Corpuscular Hgb Conc 34.5 g/dL (32-36)
[2020-12-27] MEDS ORDERED: BETAMETH SOD PHOS/ACETATE IA 6 MG/ML IM STA (17:49)
[2020-12-27] MEDS ORDERED: LABETALOL HCL 100 MG TAB ONE (17:56)
[2020-12-27] MEDS ORDERED: BETAMETH SOD PHOS/ACETATE IA 6 MG/ML ONE (17:57)
[2020-12-27] MEDS: LABETALOL HCL 200 MG TAB PO SCH ×2 (18:23→20:43)
--- NOTE | 2020-12-27 18:27 | Obstetrical Progress Note ---
Date of Service December 27, 2020 Assessment & Plan (1) Chronic hypertension affecting : Bianka is a 25-year-old at 35 weeks 3 days gestational age. Patient has chronic hypertension. Patient presents today with acute exacerbation of hypertension. Patient has no preeclampsia symptoms. Labs were unremarkable. Patient had a negative urine dip and protein creatinine ratio was below the limit of detection. I discussed Bianka with Maternal- Medicine [facility] recommended that we had admit for 24 hour observation with 24 hour protein collection and adjustment of blood pressure medications. I will increase labetalol to 200 mg t.i.d. now. Recommended we could go up to 400 mg t.i.d.. Recommended that if we cannot get blood pressure is under control that delivery may be warranted. They recommended considering delivery at 36-37 weeks for uncontrolled chronic hypertension. A discussed betamethasone with Bianka due to the potential need for pre term delivery which patient was agreeable to. Reactive NST was noted throughout the patient's observation will continue with daily NSTs. Preeclampsia precautions reviewed she (2) Supervision of high-risk : (3) Multigravida: (4) Chronic hypertension with exacerbation during in third trimester: Subjective Bianka is a 25-year-old currently at 35 weeks 3 days gestational age. Patient's has been complicated by chronic hypertension is currently on labetalol 200 b.i.d.. Patient presents to Labor and delivery today after being seen in clinic with elevated blood pressures in the 160s over 100s. Patient reports that she is feeling well and denies any symptoms of preeclampsia. Patient underwent a laboratory evaluation for preeclampsia well enhanced today which was unremarkable with all labs normal. Urine dip was negative and a urine protein creatinine ratio was below level of detection. I a discussed patient's case with Maternal- Medicine at [facility] who recommended the patient be admitted for 24 hour obvious with increasing labetalol to 200mg 3 times a day and increase up to 400mg t.i.d.. A further recommended continued regular surveillance of blood pressures while in house to see if patient responds to increasing dosing of the labetalol. A recommended delivery at 36-37 weeks for uncontrolled chronic hypertension if blood pressures are not able to be adequately managed with the above plan. Physical Exam Constitutional: WD/WN, vitals as above Respiratory: normal respiratory effort, lungs clear to auscultation Cardiovascular: RRR, no murmur, no edema Gastrointestinal (Abdomen): Inspection/Auscultation: abdomen not distended Percussion/Palpation: abdomen soft; abdomen nontender, no guarding and abdomen not rigid Neurologic: patellar DTR's 2+ bilat, sensation intact Psychiatric: A+Ox3, euthymic affect Genitourinary: OB Exam Monitor Tracing: + external FHT monitor used, + external uterine monitor used, + category I and + normal FHT variability; no early decelerations present, no late decelerations present and no variable decelerations Results & Data ([facility]) Vital Signs (Past 12 Hours) Vital Signs Temp Pulse Resp BP 12/27/20 16:07 79 143/86 H 12/27/20 15:57 79 138/82 12/27/20 15:47 78 157/87 H 12/27/20 15:37 77 150/92 H 12/27/20 15:27 86 147/91 H 12/27/20 15:17 90 160/95 H 12/27/20 15:08 86 155/99 H 12/27/20 14:57 91 H 153/90 H 12/27/20 14:47 82 144/89 H 12/27/20 14:43 37.1 C 85 18 141/85 H 12/27/20 14:37 85 141/85 H PG Care Time/CCT Total # of Minutes Spent Total Time Spent with Patient: Total time spent is greater than 50% in coordination of care (as documented) at patient's floor/unit and/or counseling patient: Coding Level of Care Code 05972 OBS Care - Level 3 Diagnoses Chronic hypertension affecting O10.919 Supervision of high-risk O09.90 Multigravida Z64.1 Chronic hypertension with exacerbation during in third trimester O10.913 CPT Codes Misx Procedure Codes - 93638 NST: 67917 NST ([id number]) BUSH REGENERATOR Miscellaneous Codes Misx Procedure Codes 34941 NST
--- NOTE | 2020-12-28 07:24 | Obstetrical Progress Note ---
Date of Service December 28, 2020 Assessment & Plan (1) Chronic hypertension with exacerbation during in third trimester: (2) Chronic hypertension affecting : Bianka is a 25-year-old at 35 weeks 3 days gestational age. Mild range BPs overnight. Denies PIH symptoms Patient has chronic hypertension. Patient presents with acute exacerbation of hypertension. Patient has no preeclampsia symptoms. Labs were unremarkable. Patient had a negative urine dip and protein creatinine ratio was below the limit of detection. I discussed Bianka with Maternal- Medicine [facility] recommended that we had admit for 24 hour observation with 24 hour protein collection and adjustment of blood pressure medications. I will increase labetalol to 200 mg t.i.d. now. Recommended we could go up to 400 mg t.i.d.. Recommended that if we cannot get blood pressure is under control that delivery may be warranted. They recommended considering delivery at 36-37 weeks for uncontrolled chronic hypertension. A discussed betamethasone with Bianka due to the potential need for pre term delivery which patient was agreeable to. Reactive NST this am. will continue with daily NSTs. Preeclampsia precautions reviewed. (3) Supervision of high-risk : (4) Multigravida: Subjective Doing well over night. Continues to deny PIH symptoms. BP mild range overnight. Denies LOF, VB or ctx. Good FM Physical Exam Constitutional: WD/WN, vitals as above Gastrointestinal (Abdomen): Inspection/Auscultation: abdomen not distended Percussion/Palpation: abdomen soft; abdomen nontender, no guarding and abdomen not rigid Neurologic: patellar DTR's 2+ bilat, sensation intact Results & Data ([facility]) Vital Signs (Past 12 Hours) Vital Signs Temp Pulse Pulse Resp BP BP Pulse Ox 12/28/20 03:59 36.7 C 81 16 137/74 12/28/20 00:03 37.0 C 16 12/28/20 00:00 85 142/71 H 12/27/20 22:52 16 12/27/20 22:49 76 141/75 H 12/27/20 22:00 83 18 148/91 H 100 12/27/20 20:00 36.8 C 86 18 146/94 H PG Care Time/CCT Total # of Minutes Spent Total Time Spent with Patient: Total time spent is greater than 50% in coordination of care (as documented) at patient's floor/unit and/or counseling patient: Coding Level of Care Code 23401 Subseq Obs Care Lvl 3 Diagnoses Chronic hypertension with exacerbation during in third trimester O10.913 Chronic hypertension affecting O10.919 Supervision of high-risk O09.90 Multigravida Z64.1 CPT Codes Misx Procedure Codes - 54877 NST: 83170 NST ([id number]) ADMINISTRATION MANAGER Miscellaneous Codes Misx Procedure Codes 64803 NST
[2020-12-28] MEDS: LABETALOL HCL 200 MG TAB PO SCH ×3 (08:42→20:20)
[2020-12-28] MEDS ORDERED: ASPIRIN 81 MG ECTAB PO SCH (16:00)
[2020-12-28] MEDS ORDERED: BETAMETH SOD PHOS/ACETATE IA 6 MG/ML IM SCH (18:00)
[2020-12-28 18:47] LABS: Urine Total Protein 9.4 mg/dl
[2020-12-28 19:08] LABS: Total Protein 24 Hour Urine 314.9 mg/24 Hr (0-149.1)
--- NOTE | 2020-12-28 20:35 | Obstetrical Progress Note ---
Date of Service December 28, 2020 Assessment & Plan Admission and Anticipated Discharge Date Admission Date: December 27, 2020 IUP at 35 4/7 weeks with chronic HTN and now superimposed pre-eclampsia without severe features increase labetalol to 300mg Q 8h tonight. recheck BP in L&D on 12/30 and again on 01/01 she will continue to monitor BP at home as well. plan induction at 37+ weeks growth scan with visit on 01/04 Subjective still asymptomatic with BP's still in 150-160 /80-90 range. 24 hour urine shows 314 mg protein in 24 hours. all other labs have been normal. Review of Systems Review of Systems: All systems reviewed & are unremarkable except as noted in HPI & below Physical Exam Constitutional: WD/WN, vitals as above Psychiatric: A+Ox3, euthymic affect Results & Data ([facility]) Vital Signs (Past 12 Hours) Vital Signs Temp Pulse Resp BP 12/28/20 19:00 98.1 F 86 18 151/91 H 12/28/20 16:56 77 18 154/84 H 12/28/20 15:20 98.2 F 94 H 20 163/98 H 12/28/20 13:00 85 20 145/85 H 12/28/20 11:12 98.2 F 86 18 134/79 12/28/20 09:38 98 H 20 155/84 H PG Care Time/CCT Total # of Minutes Spent Total Time Spent with Patient: Total time spent is greater than 50% in coordination of care (as documented) at patient's floor/unit and/or counseling patient: Coding Level of Care Code 91914 Subseq Hosp Care Lvl 2
--- NOTE | 2021-01-01 09:36 | Discharge Summary ---
Date of Service January 01, 2021 Admission HPI Per Admitting Provider Patient is a 25-year-old 2 para 1-0-0-1 white female who was admitted at 35 3/7 weeks following elevated blood pressure in the office at a routine OB visit. Her pressures were 160/110 in the office, she continued to have elevated blood pressures upon arrival in labor and delivery, however she has no PIH symptoms. Initial PIH lab work was normal. She has a history of chronic hypertension and has been on labetalol 100 mg twice a day[address] Dr. Reed took over her care and he consulted [place] [facility] for further recommendations. She began a 24-hour urine collection for total protein and creatinine clearance. She received 2 doses of Celestone in case she would need to be delivered earlier than 37 weeks. Her she also recommended increasing the labetalol up to 400 mg 3 times daily. Admission Exam (Per Admitting) Constitutional WD/WN, vitals as above Respiratory normal respiratory effort, lungs clear to auscultation Cardiovascular RRR, no murmur, no edema Psychiatric A+Ox3, euthymic affect Genitourinary OB Exam Abdomen: + vertex OB Exam Monitor Tracing: + external FHT monitor used, + external uterine monitor used, + category I and + normal FHT variability Hospital Course (1) Chronic hypertension with exacerbation during in third trimester: She continued to be asymptomatic during her hospital stay. Blood pressures were in the range of 150/90 and her labetalol was increased to 300 mg 3 times daily prior to discharge. Of note, her 24-hour urine collection showed 314 mg of protein in 24 hours which establishes the diagnosis of mild PIH superimposed on chronic hypertension. Plan is to have another blood pressure check in 48 hours along with a nonstress test. If her blood pressure continues to stay within accepted range, she will have another blood pressure check in the office on Monday 01/01. Because she is now diagnosed with mild PIH, the plan will be to induce at 37 weeks. Discharge Plan Discharge Items Patient Disposition: Home - Self-Care Reason For Visit: CHECK BLOOD PRESSURE Discharge Diagnosis: mild PIH super imposed on chronic hypertension Activity: Resume your previous activity Non-emergency contact: Gang Sawyer Call non-emergency contact if: you have any medication questions and your symptoms worsen Follow-up/Referrals: Evin Champion III, MD [Primary Care Provider] - Diet: Regular OB Addtl Attending Provider Instructions: SPECIAL CARE INSTRUCTIONS: Call Doctor if: * Regular contractions every 5 minutes or greater than contractions in one hour. * Bleeding * Water breaks or is leaking * Decreased movement * Fever >100.4 degrees F * Pain not relieved by routine measures or pain medication ordered. FOLLOW UP VISIT: Return to Labor and Delivery on 12/30/20for _BP check/call for appointment time . Follow-up Visit with: _OB office ____ When:_Monday 01/01____ Pending Studies at Discharge: No Visit Report Forms: Blood Pressure Recheck Stand-Alone Forms: My [facility] Enbase, Smoking Cessation Medications and DC Order Prescriptions: New labetalol 300 mg tablet 300 mg PO Q8H Qty: 45 RF: 1 Continued aspirin 81 mg tablet,chewable 81 mg PO DAILY RF: 0 Discontinued labetalol 100 mg tablet 200 mg PO BID RF: 0 No Action (DME) breast pump Device See Rx Instructions .ROUTE .MEDSUPPLY Qty: 1 RF: 0 1 mg Tablet 1 tab PO DAILY RF: 0 Discharge Orders: Discharge Order (Routine); Ordered 12/28/20 Ordered By: Paola Lopez Admission Data Admit Date/Time: 12/27/20 18:55 Attending Provider: Doug Mina Admit Provider: Doug Mina Primary Care Provider: Evin Champion III Other Interventions: LD Outpatient Discharge Instructions Last Done: 12/28/20 20:13 Discharge Summary Assessment (RN) Last Done: 12/28/20 20:42 Coding Level of Care Code 05243 OBS Care - Discharge Diagnoses Chronic hypertension with exacerbation during in third trimester O10.913
== END 2020-12-28 20:30 | disposition home or self-care (01) ==
LOC: 4S1 14:17 → OPB 14:17 → 4N 14:17 → 4S1 14:18 → 4N 20:11 → 4S1 22:41 → 4S2 12-28 12:34

== ENCOUNTER 2021-01-01 11:10 | Inpatient (IN) ==
[2021-01-01] MEDS ORDERED: PENICILLIN G POTASSIUM 6 MU in DEXTROSE 5% 250 ML IV STA (11:51)
[2021-01-01 11:56] LABS: Basophils # (auto) 0.01 K/uL (0-0.2); Basophils % (auto) 0.1 %; Eosinophils # (auto) 0.07 K/uL (0-0.5); Eosinophils % (auto) 0.6 %; Hematocrit (blood only) 36.2 % (37-47); Hemoglobin 12.3 g/dL (12.0-16.0); Immature Granulocytes # (auto) 0.03 K/uL (0.00-0.02); Immature Granulocytes % (auto) 0.3 %; Lymphocytes # (auto) 2.86 K/uL (1.2-3.4); Lymphocytes % (auto) 24.2 %; Mean Corpuscular Hemoglobin 31.9 pg (25-34); Mean Platelet Volume 11.5 fL (7.4-10.4); Monocytes # (auto) 1.01 K/uL (0.11-0.59); Monocytes % (auto) 8.5 %; Neutrophils # (auto) 7.86 K/uL (1.4-6.5); Neutrophils % (auto) 66.3 %; Platelet Count 194 K/uL (130-400); RDW Coefficient of Variation 13.4 % (11.5-14.5); RDW Standard Deviation 45.6 fL (36.4-46.3); Red Blood Count 3.85 M/uL (4.2-5.4); White Blood Count 11.84 K/uL (4.8-10.8)
--- NOTE | 2021-01-01 12:09 | History & Physical Report ---
Date of Service January 01, 2021 Assessment & Plan Admission and Anticipated Discharge Date Admission Date: January 01, 2021 IUP at 36 weeks with known chronic HTN and now super imposed pre-eclampsia with severe features because of persistent headache and elevated BP's despite labetalol. will do PIH labs and GBS swab suspect she will need delivery with these worsening symptoms. History of Present Illness Primary Care Provider: Evin Champion MD Patient is a 25 yo white female EDC 01/28/21 who presents at 36 1/7 weeks with persistent headache for 24 hours and nausea but no vomiting. She has a history of chronic HTN and was admitted for 24 hour observation on 12/28/20. Labetalol was increased to 300mg tid and discharged for follow up. 24 hour urine collection showed 314 mg protein. But rest of PIH labs were normal. She had no PIH symptoms at that time and had felt well with a normal BP here in L&D on 12/30 until yesterday when the headache began and was not helped with 1000mg of tylenol and hot showers. She has seen some visual changes when she moves her head. She has also has developed SOB while lying flat since yesterday and with exertion. BP at OB visit today was markedly elevated again and so she was sent to L&D for further evaluation. Allergies Allergy/AdvReac Type Severity Reaction Status Date / Time No Known Drug Allergies Allergy Verified 01/01/21 09:47 Home Medications Medication Instructions Recorded Confirmed Type [id number] 1 tab PO DAILY 06/12/20 01/01/21 History [] aspirin 81 mg chewable tablet 81 mg PO DAILY 08/31/20 01/01/21 History breast pump #1 ea 12/07/20 01/01/21 Rx labetalol 300 mg PO Q8H #45 tab 12/28/20 01/01/21 Rx Patient History Medical History 37 weeks gestation of DELIVERED MAR 2020 Abdominal pain Abdominal pain affecting Abnormal menstrual cycle Acute endometritis Appendicitis, acute (01/05/14) Appendicitis, acute Benign essential hypertension Chlamydia as a teenager Chronic hypertension in obstetric context in third trimester Chronic migraine without aura or status migrainosus Complex ovarian cyst Exposure to bloodborne pathogen Exposure to bloodborne pathogen Fatigue Female infertility Fever and chills Finger avulsion Gastritis Headache History of endometriosis HTN (hypertension) Intrauterine growth restriction (IUGR) affecting care of mother, third trimester, single gestation Missed Nausea Nausea Near syncope Ovarian cyst left Pelvic pain PID (acute pelvic inflammatory disease) Right upper quadrant pain Sinus congestion Supervision of normal intrauterine in multigravida Vaginitis Surgical History H/O laparoscopy H/O tooth extraction History of dilation and curettage S/P appendectomy Family History Mother Anemia Depression Endometriosis Diabetes Ovarian cyst Hypertension Hypothyroidism Grandmother (Maternal) Depression Hypertension Aunt Depression Ovarian cyst Social History Smoking Status: Never smoker Second Hand Exposure: No; Hx Alcohol Use: No Hx Substance Use: No Preferred Language: Arabic Communication Ability: Effective Communication Ability Comment: 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 Beliefs That Will Affect Care: None marital status: Single marital status details: Omar [phone] Current Living Situation: Significant Other Current Living Situation Comment: lives with FOB, daughter, current occupational status: unemployed Feels Safe at Home: Yes Safety Concerns: Feels Safe At This Time Assistive Devices: None Review of Systems All systems reviewed & are unremarkable except as noted in HPI & below Physical Exam Constitutional: WD/WN, vitals as above Respiratory: normal respiratory effort, lungs clear to auscultation Cardiovascular: RRR, no murmur, no edema Gastrointestinal (Abdomen): normal bowel sounds, soft, nontender, no hepatosplenomegaly no epigastric or RUQ tenderness Psychiatric: A+Ox3, euthymic affect Genitourinary: OB Exam Abdomen: + vertex and + estimated weight (6-7 pounds) Manual OB Exam: + cervical dilation (closed), + cervical effacement 50% and + station (-3) high OB Exam Monitor Tracing: + external FHT monitor used, + external uterine monitor used, + category I and + normal FHT variability Results & Data ([facility]) Vital Signs (Past 12 Hours) Vital Signs Temp Pulse Resp BP 01/01/21 11:49 106 H 130/76 06/21/21 11:33 86 147/90 H 01/01/21 11:21 98.2 F 83 16 131/96 01/01/21 11:18 91 H 134/90 Coding Level of Care Code None
[2021-01-01 12:14] LABS: Creatinine Clr Calc Pharmacy 142.8 ml/min; Est GFR (African American) 138.3 ml/min; Est GFR (Non-African American) 119.3 ml/min
[2021-01-01 12:48] LABS: Protein Creatinine Ratio Urine 0.5 (0-0.2); Total Protein Urine Random 30.4 mg/dl (0-11.9)
[2021-01-01] MEDS ORDERED: OXYTOCIN 30 UNITS/500 ML BAG IV PRN (13:06)
[2021-01-01] MEDS: LABETALOL HCL 300 MG TAB PO SCH ×2 (13:08→20:39)
[2021-01-01] MEDS: LACTATED RINGER'S 1,000 ML IV PRN ×2 (14:58→23:54)
[2021-01-01] MEDS: ONDANSETRON INJ 2 MG/ML 2 ML VIAL IV PRN (15:01)
[2021-01-01] MEDS ORDERED: MAG SULFATE 4GM BOLUS FROM BAG IV ONE (17:00)
[2021-01-01] MEDS ORDERED: LABETALOL HCL 300 MG TAB PO SCH (17:15)
[2021-01-01] MEDS: MAGNESIUM SULFATE / WTR 40 GM/1,000 ML BAG IV SCH (17:18)
[2021-01-01] MEDS ORDERED: METOCLOPRAMIDE HCL INJ 5 MG/ML 2 ML VIAL IV STA (22:32)
[2021-01-01] MEDS ORDERED: ACETAMINOPHEN 500 MG TAB PO ONE (22:33)
[2021-01-01] MEDS: PENICILLIN G POTASSIUM 3 MU in DEXTROSE 5% 100 ML IV PRN (23:07)
[2021-01-01] MEDS ORDERED: BUPIVACAINE 0.25% 30 ML VIAL ONE (23:47)
[2021-01-01] MEDS ORDERED: ePHEDrine sulfate 50 MG/ML AMP ONE (23:47)
[2021-01-01] MEDS ORDERED: SODIUM CHLORIDE 0.9% INJ 10 ML VIAL ONE (23:47)
[2021-01-01] MEDS ORDERED: fentaNYL citrate 100 MCG/2 ML VIAL ONE (23:48)
[2021-01-01] MEDS ORDERED: fentaNYL 2MCG/ML ROPIVACAINE 1.25MG/ML 100 ML BAG EPI ONE (23:49)
--- NOTE | 2021-01-02 01:07 | Anesthesiology Consultation ---
Date of Service January 02, 2021 Assessment & Plan Chart Review Chart Review: Acceptable Risk for Labor Epidural Consults Requested none ASA ASA2E Proposed Anesthesia Anesthesia Type: Labor Epidural History Height/Weight Height: 5 ft 6 in Weight: 95.708 kg Allergies Allergy/AdvReac Type Severity Reaction Status Date / Time No Known Drug Allergies Allergy Verified 01/01/21 09:47 Medications Home Medications Medication Instructions Recorded Confirmed Last Taken visnehqz-eng-Oa-FA 1 tab PO DAILY 06/12/20 01/01/21 12/31/20 21:00 [] aspirin 81 mg chewable tablet 81 mg PO DAILY 08/31/20 01/01/21 01/01/21 08:00 breast pump #1 ea 12/07/20 01/01/21 Unknown labetalol 300 mg PO Q8H #45 tab 12/28/20 01/01/21 01/01/21 08:00 Active Medications Generic Name Dose Route Start Last Admin Trade Name Freq PRN Reason Stop Dose Admin Lactated Ringer's 1,000 mls @ 125 mls/hr 01/01/21 11:46 01/02/21 00:29 Lr IV 01/03/21 11:45 75 mls/hr .Q8H PRN Infusion L&D Protocol Protocol Penicillin G Potassium 3 mu/ 106 mls @ 100 mls/hr 01/01/21 11:46 01/02/21 00:23 Dextrose IV 01/11/21 11:45 Infused Q4H PRN Infusion Give until delivery Oxytocin 30 units in 500 mls @ 14 mls/hr 01/01/21 13:06 01/02/21 00:29 Pitocin IV 01/03/21 13:05 0.84 units/hr .Q24H PRN 14 mls/hr Labor Induction/Augmentation Titration Protocol 0.84 UNITS/HR Magnesium Sulfate 40 gm in 1,000 mls @ 50 mls/hr 01/01/21 17:00 01/02/21 00:29 Magnesium Sulfate / Wtr IV 01/31/21 16:59 50 mls/hr .Q20H JEEVAN Infusion Labetalol HCl 300 mg 01/01/21 13:00 01/01/21 20:39 Labetalol Hcl 300 Mg Tab PO 01/31/21 12:59 300 mg Q8H JEEVAN Administration Ondansetron HCl 4 mg 01/01/21 14:53 01/01/21 15:01 Ondansetron Inj 2 Mg/Ml 2 Ml Vial IV 01/31/21 14:52 4 mg Q6H PRN Administration Nausea And Vomiting Past Medical History Medical History 37 weeks gestation of DELIVERED MAR 2018 Abdominal pain Abdominal pain affecting Abnormal menstrual cycle Acute endometritis Appendicitis, acute (01/05/14) Appendicitis, acute Benign essential hypertension Chlamydia as a teenager Chronic hypertension in obstetric context in third trimester Chronic migraine without aura or status migrainosus Complex ovarian cyst Exposure to bloodborne pathogen Exposure to bloodborne pathogen Fatigue Female infertility Fever and chills Finger avulsion Gastritis Headache History of endometriosis HTN (hypertension) Intrauterine growth restriction (IUGR) affecting care of mother, third trimester, single gestation Missed Nausea Nausea Near syncope Ovarian cyst left Pelvic pain PID (acute pelvic inflammatory disease) Right upper quadrant pain Sinus congestion Supervision of normal intrauterine in multigravida Vaginitis Past Family History Family History Mother Anemia Depression Endometriosis Diabetes Ovarian cyst Hypertension Hypothyroidism Grandmother (Maternal) Depression Hypertension Aunt Depression Ovarian cyst Past Surgical History Surgical History H/O laparoscopy H/O tooth extraction History of dilation and curettage S/P appendectomy Social History Smoking Status: Never smoker Hx Alcohol Use: No Hx Substance Use: No substance use type: does not use Physical Exam Vital Signs Last Vital Signs Temp 36.7 C 01/01/21 19:00 Pulse 73 01/02/21 01:05 Resp 18 01/02/21 00:00 BP 126/61 01/02/21 01:05 Pulse Ox 95 01/02/21 01:01 Testing Laboratory Results 01/01/21 11:47 01/01/21 11:47
[2021-01-02] MEDS ORDERED: diphenhydrAMINE 50 MG/ML VIAL IV PRN (01:09)
[2021-01-02] MEDS ORDERED: ePHEDrine sulfate 50 MG/ML AMP IV PRN (01:09)
[2021-01-02] MEDS ORDERED: NALOXONE HCL 0.4 MG/1 ML VIAL/CARP IV PRN (01:09)
[2021-01-02] MEDS ORDERED: NALOXONE HCL 1 MG in SODIUM CHLORIDE 0.9% 1000ML 1,000 ML IV PRN (01:09)
[2021-01-02] MEDS ORDERED: fentaNYL 2MCG/ML ROPIVACAINE 1.25MG/ML 100 ML BAG EPI PRN (01:09)
[2021-01-02] MEDS: LABETALOL HCL 300 MG TAB PO SCH ×3 (04:56→21:09)
[2021-01-02] MEDS ORDERED: Nursing to Pharmacy Communication SCH (05:15)
[2021-01-02] MEDS: LACTATED RINGER'S 1,000 ML IV PRN ×2 (06:39→23:08)
[2021-01-02] MEDS ORDERED: METOCLOPRAMIDE HCL INJ 5 MG/ML 2 ML VIAL IV STA (07:22)
[2021-01-02] MEDS ORDERED: ACETAMINOPHEN 500 MG TAB PO STA (07:23)
--- NOTE | 2021-01-02 07:46 | Labor Progress Brief Note ---
Date of Service January 02, 2021 Subjective Reason For Note: Routine Evaluation Assessment & Plan (1) Severe pre-eclampsia: 25yo at 36.2 weeks GA. IOL for severe PIH. 1. Fetus: Cat 1 2. Labor: Pit/ Hernandez 3.Vitals/PIH: On Mg. BPs mild range with intermittent severe range. Continue home BP meds. 4. GBS unknown: PCN. (2) Supervision of high-risk : (3) Chronic hypertension affecting : Admission and Anticipated Discharge Date Admission Date: January 01, 2021 Physical Exam Constitutional: WD/WN, vitals as above Gastrointestinal (Abdomen): Inspection/Auscultation: abdomen not distended Percussion/Palpation: abdomen soft; abdomen nontender, no guarding and abdomen not rigid Neurologic: patellar DTR's 2+ bilat, sensation intact Psychiatric: A+Ox3, euthymic affect Genitourinary: OB Exam Monitor Tracing: + category I Cervical Hernandez in place Results & Data ([facility]) Vital Signs (Past 12 Hours) Vital Signs Temp Pulse Resp BP Pulse Ox 01/02/21 07:36 81 97 01/02/21 07:33 63 145/90 H 01/02/21 07:31 72 96 01/02/21 07:26 77 97 01/02/21 07:21 73 97 01/02/21 07:17 67 171/88 H 01/02/21 07:16 70 96 01/02/21 07:11 66 95 01/02/21 07:06 73 96 01/02/21 07:02 77 142/79 H 01/02/21 07:01 73 95 01/02/21 06:56 64 96 01/02/21 06:51 67 95 01/02/21 06:48 68 147/93 H 01/02/21 06:46 74 95 01/02/21 06:41 73 95 01/02/21 06:36 69 95 01/02/21 06:33 65 147/91 H 01/02/21 06:31 71 94 01/02/21 06:26 72 96 01/02/21 06:21 67 95 01/02/21 06:17 67 130/58 L 01/02/21 06:16 66 94 01/02/21 06:11 66 94 01/02/21 06:06 71 94 01/02/21 06:03 65 167/90 H 01/02/21 06:01 74 94 01/02/21 06:00 18 01/02/21 05:56 74 94 01/02/21 05:51 67 95 01/02/21 05:47 64 156/89 H 01/02/21 05:46 66 94 01/02/21 05:45 36.6 C 18 01/02/21 05:41 63 94 01/02/21 05:36 64 94 01/02/21 05:32 63 161/90 H 01/02/21 05:31 67 94 01/02/21 05:26 67 94 01/02/21 05:21 69 95 01/02/21 05:18 64 159/92 H 01/02/21 05:16 65 93 01/02/21 05:11 65 94 01/02/21 05:06 70 94 01/02/21 05:02 67 164/92 H 01/02/21 05:01 67 94 01/02/21 05:00 18 01/02/21 04:56 75 95 01/02/21 04:51 64 94 01/02/21 04:47 65 157/85 H 01/02/21 04:46 66 94 01/02/21 04:41 67 93 01/02/21 04:36 66 94 01/02/21 04:33 67 166/88 H 01/02/21 04:31 70 94 01/02/21 04:26 64 94 01/02/21 04:21 64 94 01/02/21 04:17 65 158/87 H 01/02/21 04:16 69 94 01/02/21 04:11 76 95 01/02/21 04:06 62 95 01/02/21 04:02 66 157/93 H 01/02/21 04:01 65 95 01/02/21 04:00 18 01/02/21 03:56 63 95 01/02/21 03:51 78 96 01/02/21 03:48 80 135/77 01/02/21 03:46 77 95 01/02/21 03:41 71 96 01/02/21 03:36 70 96 01/02/21 03:32 71 131/74 01/02/21 03:31 72 94 01/02/21 03:26 72 95 06/22/21 03:21 71 95 0622/21 03:17 72 140/73 22/21 03:16 77 95 01/02/ 03:11 78 94 01/02/ 03:06 81 95 01/02/ 03:05 36.6 C 16 95 01/02/ 03:02 73 133/74 22/21 03:01 74 95 01/02/ 03:00 16 01/02/21 02:56 70 95 01/02/ 02:51 69 95 0622/21 02:47 73 142/81 H 01/02/21 02:46 75 95 01/02/21 02:41 69 93 01/02/ 02:36 72 95 01/02/ 02:33 69 140/79 01/02/ 02:31 75 95 01/02/ 02:26 81 94 01/02/ 02:21 70 95 01/02/ 02:17 71 140/75 01/02/21 02:16 74 92 01/02/21 02:11 75 94 01/02/21 02:06 69 93 01/02/ 02:02 68 138/73 01/02/ 02:01 71 18 93 01/02/ 01:56 71 95 01/02/ 01:51 72 95 01/02/ 01:48 71 132/67 22/21 01:46 74 96 01/02/ 01:41 74 94 01/02/ 01:36 69 95 01/02/ 01:31 68 137/69 95 01/02/ 01:29 71 138/74 01/02/ 01:27 68 142/70 H 22/21 01:26 72 95 01/02/21 01:25 71 143/73 H 22/21 01:23 68 137/72 22/21 01:21 67 134/73 96 01/02/21 01:19 67 139/74 22/21 01:17 68 132/70 0622/21 01:16 70 95 01/02/21 01:15 69 141/77 H 22/21 01:13 70 135/72 0622/21 01:11 68 129/73 95 01/02/21 01:09 65 126/66 01/02/21 01:07 70 132/71 01/02/21 01:06 71 96 01/02/21 01:05 73 126/61 01/02/21 01:03 74 113/57 L 01/02/21 01:01 71 123/65 95 01/02/21 01:00 16 01/02/21 00:59 67 117/60 01/02/21 00:57 69 115/58 L 01/02/21 00:56 68 96 01/02/21 00:55 81 115/59 L 01/02/21 00:52 71 132/70 01/02/21 00:51 78 97 01/02/21 00:48 68 134/84 01/02/21 00:46 75 128/83 96 01/02/21 00:41 70 141/90 H 96 01/02/21 00:36 69 96 01/02/21 00:31 67 96 01/02/21 00:26 67 96 01/02/21 00:21 72 98 01/02/21 00:16 72 96 01/02/21 00:12 71 157/87 H 01/02/21 00:11 63 96 01/02/21 00:06 61 96 01/02/21 00:01 70 95 01/02/21 00:00 18 01/01/21 23:56 63 96 01/01/21 23:51 68 97 01/01/21 23:46 62 96 01/01/21 23:41 75 133/80 96 01/01/21 23:36 69 97 01/01/21 23:31 67 96 01/01/21 23:26 65 96 01/01/21 23:21 70 96 01/01/21 23:16 68 96 01/01/21 23:11 81 136/84 95 01/01/21 23:10 36.5 C 18 01/01/21 23:06 71 94 01/01/21 23:01 73 95 01/01/21 23:00 18 01/01/21 22:56 75 95 01/01/21 22:51 76 96 01/01/21 22:46 76 95 01/01/21 22:41 72 134/75 94 01/01/21 22:36 73 95 01/01/21 22:31 72 97 01/01/21 22:30 18 01/01/21 22:26 71 94 01/01/21 22:21 70 94 01/01/21 22:16 71 97 01/01/21 22:11 82 136/83 96 01/01/21 22:06 71 95 01/01/21 22:01 71 96 01/01/21 21:56 76 97 01/01/21 21:51 69 96 01/01/21 21:46 69 95 01/01/21 21:41 70 143/88 H 95 01/01/21 21:36 78 97 01/01/21 21:31 68 96 01/01/21 21:30 18 01/01/21 21:26 68 96 01/01/21 21:21 72 96 01/01/21 21:16 75 94 01/01/21 21:11 79 136/83 94 01/01/21 21:06 76 95 01/01/21 21:01 66 95 01/01/21 20:56 73 95 01/01/21 20:51 67 96 01/01/21 20:46 74 95 01/01/21 20:41 76 139/87 95 01/01/21 20:37 71 153/96 H 01/01/21 20:36 78 95 01/01/21 20:31 80 95 01/01/21 20:30 20 01/01/21 20:26 75 95 01/01/21 20:21 80 95 01/01/21 20:16 79 98 01/01/21 20:11 78 98 01/01/21 20:10 74 135/87 01/01/21 20:06 72 97 01/01/21 20:01 69 98 01/01/21 19:56 76 98 01/01/21 19:55 68 156/88 H 01/01/21 19:51 69 98 01/01/21 19:46 67 96 Coding Level of Care Code None Diagnoses Severe pre-eclampsia O14.10 Supervision of high-risk O09.90 Chronic hypertension affecting O10.919
[2021-01-02] MEDS: PENICILLIN G POTASSIUM 3 MU in DEXTROSE 5% 100 ML IV PRN ×2 (07:47→11:05)
--- NOTE | 2021-01-02 09:40 | Labor Progress Brief Note ---
Date of Service January 02, 2021 Subjective More uncomfortable with ctx Assessment & Plan (1) Severe pre-eclampsia: 25yo at 36.2 weeks GA. IOL for severe PIH. 1. Fetus: Cat 1 2. Labor: pit at 26, s/p srom. IUPC placed for more accurate monitoring, consider amnio if variables don't improve 3.Vitals/PIH: On Mg. BPs normal to mild range. Continue home BP meds. 4. GBS unknown: PCN. (2) Supervision of high-risk : (3) Chronic hypertension affecting : Admission and Anticipated Discharge Date Admission Date: January 01, 2021 Physical Exam Genitourinary: Manual OB Exam: + cervical dilation (6-7), + cervical effacement 80% and + station -1 OB Exam Monitor Tracing: + external FHT monitor used, + intra-uterine pressure catheter used (placed) and + category II (105/mod/-accel/variables, accel noted with scalp stim) Results & Data ([facility]) Vital Signs (Past 12 Hours) Vital Signs Temp Pulse Resp BP Pulse Ox 01/02/21 09:32 67 128/77 01/02/21 09:31 69 96 01/02/21 09:26 70 96 01/02/21 09:21 68 96 01/02/21 09:17 65 137/81 01/02/21 09:16 63 95 01/02/21 09:11 60 95 01/02/21 09:06 59 L 95 01/02/21 09:02 64 144/73 H 01/02/21 09:01 68 95 01/02/21 08:56 72 96 01/02/21 08:51 62 95 01/02/21 08:49 97.7 F 18 01/02/21 08:47 69 138/69 01/02/21 08:46 68 95 01/02/21 08:41 72 96 01/02/21 08:36 64 96 01/02/21 08:33 62 128/61 01/02/21 08:31 71 95 01/02/21 08:26 60 95 01/02/21 08:21 66 95 01/02/21 08:17 73 132/76 01/02/21 08:16 68 97 01/02/21 08:11 65 95 01/02/21 08:06 65 95 01/02/21 08:03 71 147/73 H 01/02/21 08:01 78 96 01/02/21 07:56 66 96 01/02/21 07:51 86 96 01/02/21 07:48 67 127/70 01/02/21 07:46 67 96 01/02/21 07:41 68 97 01/02/21 07:36 81 97 01/02/21 07:33 63 145/90 H 01/02/21 07:31 72 96 01/02/21 07:30 18 01/02/21 07:26 77 97 01/02/21 07:21 73 97 01/02/21 07:17 67 171/88 H 01/02/21 07:16 70 96 01/02/21 07:11 66 95 01/02/21 07:06 73 96 01/02/21 07:02 77 142/79 H 01/02/21 07:01 73 95 01/02/21 07:00 97.9 F 18 01/02/21 06:56 64 96 01/02/21 06:51 67 95 01/02/21 06:48 68 147/93 H 01/02/21 06:46 74 95 01/02/21 06:41 73 95 01/02/21 06:36 69 95 01/02/21 06:33 65 147/91 H 01/02/21 06:31 71 94 01/02/21 06:26 72 96 01/02/21 06:21 67 95 01/02/21 06:17 67 130/58 L 01/02/21 06:16 66 94 01/02/21 06:11 66 94 01/02/21 06:06 71 94 01/02/21 06:03 65 167/90 H 01/02/21 06:01 74 94 01/02/21 06:00 18 01/02/21 05:56 74 94 01/02/21 05:51 67 95 01/02/21 05:47 64 156/89 H 01/02/21 05:46 66 94 01/02/21 05:45 97.9 F 18 01/02/21 05:41 63 94 01/02/21 05:36 64 94 01/02/21 05:32 63 161/90 H 01/02/21 05:31 67 94 01/02/21 05:26 67 94 01/02/ 05:21 69 95 01/02/21 05:18 64 159/92 H 01/02/21 05:16 65 93 01/02/21 05:11 65 94 01/02/21 05:06 70 94 01/02/21 05:02 67 164/92 H 01/02/21 05:01 67 94 01/02/21 05:00 18 01/02/21 04:56 75 95 01/02/21 04:51 64 94 01/02/21 04:47 65 157/85 H 01/02/21 04:46 66 94 01/02/21 04:41 67 93 01/02/21 04:36 66 94 01/02/21 04:33 67 166/88 H 01/02/21 04:31 70 94 01/02/21 04:26 64 94 01/02/21 04:21 64 94 01/02/21 04:17 65 158/87 H 01/02/21 04:16 69 94 01/02/21 04:11 76 95 01/02/21 04:06 62 95 01/02/21 04:02 66 157/93 H 01/02/21 04:01 65 95 01/02/21 04:00 18 01/02/21 03:56 63 95 01/02/21 03:51 78 96 01/02/21 03:48 80 135/77 01/02/21 03:46 77 95 01/02/21 03:41 71 96 01/02/21 03:36 70 96 01/02/21 03:32 71 131/74 01/02/21 03:31 72 94 01/02/21 03:26 72 95 21 03:21 71 95 01/02/21 03:17 72 140/73 01/02/21 03:16 77 95 01/02/21 03:11 78 94 01/02/21 03:06 81 95 01/02/21 03:05 97.9 F 16 95 01/02/21 03:02 73 133/74 01/02/21 03:01 74 95 06 03:00 16 01/02/21 02:56 70 95 01/02/21 02:51 69 95 01/02/21 02:47 73 142/81 H 01/02/21 02:46 75 95 01/02/21 02:41 69 93 01/02/21 02:36 72 95 01/02/21 02:33 69 140/79 01/02/21 02:31 75 95 01/02/21 02:26 81 94 01/02/21 02:21 70 95 01/02/21 02:17 71 140/75 01/02/21 02:16 74 92 01/02/21 02:11 75 94 01/02/21 02:06 69 93 01/02/21 02:02 68 138/73 01/02/21 02:01 71 18 93 01/02/21 01:56 71 95 01/02/21 01:51 72 95 01/02/21 01:48 71 132/67 01/02/21 01:46 74 96 01/02/21 01:41 74 94 01/02/21 01:36 69 95 01/02/21 01:31 68 137/69 95 01/02/21 01:29 71 138/74 01/02/21 01:27 68 142/70 H 01/02/21 01:26 72 95 01/02/21 01:25 71 143/73 H 01/02/21 01:23 68 137/72 01/02/21 01:21 67 134/73 96 01/02/21 01:19 67 139/74 01/02/21 01:17 68 132/70 01/02/21 01:16 70 95 01/02/21 01:15 69 141/77 H 01/02/21 01:13 70 135/72 01/02/21 01:11 68 129/73 95 01/02/21 01:09 65 126/66 01/02/21 01:07 70 132/71 01/02/21 01:06 71 96 01/02/21 01:05 73 126/61 01/02/21 01:03 74 113/57 L 01/02/21 01:01 71 123/65 95 01/02/21 01:00 16 01/02/21 00:59 67 117/60 01/02/21 00:57 69 115/58 L 01/02/21 00:56 68 96 01/02/21 00:55 81 115/59 L 01/02/21 00:52 71 132/70 01/02/21 00:51 78 97 01/02/21 00:48 68 134/84 01/02/21 00:46 75 128/83 96 01/02/21 00:41 70 141/90 H 96 01/02/21 00:36 69 96 01/02/21 00:31 67 96 01/02/21 00:26 67 96 01/02/21 00:21 72 98 01/02/21 00:16 72 96 01/02/21 00:12 71 157/87 H 01/02/21 00:11 63 96 01/02/21 00:06 61 96 01/02/21 00:01 70 95 01/02/21 00:00 18 01/01/21 23:56 63 96 01/01/21 23:51 68 97 01/01/21 23:46 62 96 01/01/21 23:41 75 133/80 96 01/01/21 23:36 69 97 01/01/21 23:31 67 96 01/01/21 23:26 65 96 01/01/21 23:21 70 96 01/01/21 23:16 68 96 01/01/21 23:11 81 136/84 95 01/01/21 23:10 97.7 F 18 01/01/21 23:06 71 94 01/01/21 23:01 73 95 01/01/21 23:00 18 01/01/21 22:56 75 95 01/01/21 22:51 76 96 01/01/21 22:46 76 95 01/01/21 22:41 72 134/75 94 01/01/21 22:36 73 95 01/01/21 22:31 72 97 01/01/21 22:30 18 01/01/21 22:26 71 94 01/01/21 22:21 70 94 01/01/21 22:16 71 97 01/01/21 22:11 82 136/83 96 01/01/21 22:06 71 95 01/01/21 22:01 71 96 01/01/21 21:56 76 97 01/01/21 21:51 69 96 01/01/21 21:46 69 95 01/01/21 21:41 70 143/88 H 95 Coding Level of Care Code None Diagnoses Severe pre-eclampsia O14.10 Supervision of high-risk O09.90 Chronic hypertension affecting O10.919
[2021-01-02] MEDS ORDERED: BUPIVACAINE 0.25% 30 ML VIAL ONE (09:52)
[2021-01-02] MEDS ORDERED: fentaNYL citrate 100 MCG/2 ML VIAL ONE (09:52)
--- NOTE | 2021-01-02 10:21 | Labor Progress Brief Note ---
Date of Service January 02, 2021 Subjective Minimal relief from re-bolus Assessment & Plan (1) Severe pre-eclampsia: 25yo at 36.2 weeks GA. IOL for severe PIH. 1. Fetus: Cat 2 2. Labor: pit at 26, s/p srom. IUPC placed for more accurate monitoring, consider amnio if variables don't improve 3.Vitals/PIH: On Mg. BPs normal to mild range. Continue home BP meds. 4. GBS unknown: PCN. (2) Supervision of high-risk : (3) Chronic hypertension affecting : Admission and Anticipated Discharge Date Admission Date: January 01, 2021 Physical Exam Genitourinary: Manual OB Exam: + cervical dilation (7-8), + cervical effacement 80% and + station -1 OB Exam Monitor Tracing: + external FHT monitor used, + intra-uterine pressure catheter used (q4) and + category II (105/mod/-accel/variables, accel noted with scalp stim) Results & Data ([facility]) Vital Signs (Past 12 Hours) Vital Signs Temp Pulse Resp BP Pulse Ox 01/02/21 10:19 74 129/77 01/02/21 10:17 64 124/68 01/02/21 10:16 71 95 01/02/21 10:15 75 125/68 01/02/21 10:13 69 130/73 01/02/21 10:11 68 126/66 94 01/02/21 10:09 73 144/66 H 01/02/21 10:08 77 146/66 H 01/02/21 10:06 73 96 01/02/21 10:05 71 144/91 H 01/02/21 10:03 64 143/87 H 01/02/21 10:01 65 145/85 H 95 01/02/21 10:00 20 01/02/21 09:59 64 141/79 H 01/02/21 09:57 64 141/78 H 01/02/21 09:56 83 96 01/02/21 09:51 64 95 01/02/21 09:47 76 133/89 01/02/21 09:46 75 94 01/02/21 09:41 58 L 94 01/02/21 09:36 65 95 01/02/21 09:32 67 128/77 01/02/21 09:31 69 96 01/02/21 09:26 70 96 01/02/21 09:21 68 96 01/02/21 09:17 65 137/81 01/02/21 09:16 63 95 01/02/21 09:11 60 95 01/02/21 09:06 59 L 95 01/02/21 09:02 64 144/73 H 01/02/21 09:01 68 95 01/02/21 08:56 72 96 01/02/21 08:51 62 95 01/02/21 08:49 97.7 F 18 01/02/21 08:47 69 138/69 01/02/21 08:46 68 95 01/02/21 08:41 72 96 01/02/21 08:36 64 96 01/02/21 08:33 62 128/61 01/02/21 08:31 71 95 01/02/21 08:26 60 95 01/02/21 08:21 66 95 01/02/21 08:17 73 132/76 01/02/21 08:16 68 97 01/02/21 08:11 65 95 01/02/21 08:06 65 95 01/02/21 08:03 71 147/73 H 01/02/21 08:01 78 96 01/02/21 07:56 66 96 01/02/21 07:51 86 96 01/02/21 07:48 67 127/70 01/02/21 07:46 67 96 01/02/21 07:41 68 97 01/02/21 07:36 81 97 01/02/21 07:33 63 145/90 H 01/02/21 07:31 72 96 01/02/21 07:30 18 01/02/21 07:26 77 97 01/02/21 07:21 73 97 01/02/21 07:17 67 171/88 H 01/02/21 07:16 70 96 01/02/21 07:11 66 95 01/02/21 07:06 73 96 01/02/21 07:02 77 142/79 H 01/02/21 07:01 73 95 01/02/21 07:00 97.9 F 18 01/02/21 06:56 64 96 01/02/21 06:51 67 95 01/02/21 06:48 68 147/93 H 01/02/21 06:46 74 95 01/02/21 06:41 73 95 01/02/21 06:36 69 95 01/02/21 06:33 65 147/91 H 01/02/21 06:31 71 94 01/02/21 06:26 72 96 01/02/21 06:21 67 95 01/02/21 06:17 67 130/58 L 01/02/21 06:16 66 94 01/02/21 06:11 66 94 01/02/21 06:06 71 94 01/02/21 06:03 65 167/90 H 01/02/21 06:01 74 94 01/02/21 06:00 18 01/02/21 05:56 74 94 01/02/21 05:51 67 95 01/02/21 05:47 64 156/89 H 01/02/21 05:46 66 94 01/02/21 05:45 97.9 F 18 01/02/21 05:41 63 94 01/02/21 05:36 64 94 01/02/21 05:32 63 161/90 H 01/02/21 05:31 67 94 01/02/21 05:26 67 94 01/02/21 05:21 69 95 01/02/21 05:18 64 159/92 H 01/02/21 05:16 65 93 01/02/21 05:11 65 94 01/02/21 05:06 70 94 01/02/21 05:02 67 164/92 H 01/02/21 05:01 67 94 01/02/21 05:00 18 01/02/21 04:56 75 95 01/02/21 04:51 64 94 01/02/21 04:47 65 157/85 H 01/02/21 04:46 66 94 01/02/21 04:41 67 93 01/02/21 04:36 66 94 01/02/21 04:33 67 166/88 H 01/02/21 04:31 70 94 01/02/21 04:26 64 94 01/02/21 04:21 64 94 01/02/21 04:17 65 158/87 H 01/02/21 04:16 69 94 01/02/21 04:11 76 95 01/02/21 04:06 62 95 01/02/21 04:02 66 157/93 H 01/02/21 04:01 65 95 01/02/ 04:00 18 01/02/21 03:56 63 95 01/02/ 03:51 78 96 01/02/ 03:48 80 135/77 06/21 03:46 77 95 22/21 03:41 71 96 22/21 03:36 70 96 22/21 03:32 71 131/74 01/02/ 03:31 72 94 01/02/ 03:26 72 95 0622/21 03:21 71 95 01/02/21 03:17 72 140/73 01/02/ 03:16 77 95 01/02/ 03:11 78 94 01/02/21 03:06 81 95 01/02/21 03:05 97.9 F 16 95 01/02/21 03:02 73 133/74 01/02/ 03:01 74 95 01/02/21 03:00 16 01/02/21 02:56 70 95 01/02/ 02:51 69 95 01/02/ 02:47 73 142/81 H 01/02/21 02:46 75 95 01/02/21 02:41 69 93 01/02/ 02:36 72 95 01/02/ 02:33 69 140/79 01/02/ 02:31 75 95 01/02/ 02:26 81 94 01/02/ 02:21 70 95 01/02/21 02:17 71 140/75 01/02/21 02:16 74 92 01/02/ 02:11 75 94 01/02/ 02:06 69 93 01/02/21 02:02 68 138/73 01/02/21 02:01 71 18 93 01/02/21 01:56 71 95 22/21 01:51 72 95 22/21 01:48 71 132/67 22/21 01:46 74 96 22/21 01:41 74 94 0622/21 01:36 69 95 22/21 01:31 68 137/69 95 0622/21 01:29 71 138/74 22/21 01:27 68 142/70 H 22/21 01:26 72 95 0622/21 01:25 71 143/73 H 06/22/21 01:23 68 137/72 01/02/21 01:21 67 134/73 96 01/02/21 01:19 67 139/74 01/02/21 01:17 68 132/70 01/02/21 01:16 70 95 01/02/21 01:15 69 141/77 H 01/02/21 01:13 70 135/72 01/02/21 01:11 68 129/73 95 01/02/21 01:09 65 126/66 01/02/21 01:07 70 132/71 01/02/21 01:06 71 96 01/02/21 01:05 73 126/61 01/02/21 01:03 74 113/57 L 01/02/21 01:01 71 123/65 95 01/02/21 01:00 16 01/02/21 00:59 67 117/60 01/02/21 00:57 69 115/58 L 01/02/21 00:56 68 96 01/02/21 00:55 81 115/59 L 01/02/21 00:52 71 132/70 01/02/21 00:51 78 97 01/02/21 00:48 68 134/84 01/02/21 00:46 75 128/83 96 01/02/21 00:41 70 141/90 H 96 01/02/21 00:36 69 96 01/02/21 00:31 67 96 01/02/21 00:26 67 96 01/02/21 00:21 72 98 01/02/21 00:16 72 96 01/02/21 00:12 71 157/87 H 01/02/21 00:11 63 96 01/02/21 00:06 61 96 01/02/21 00:01 70 95 01/02/21 00:00 18 01/01/21 23:56 63 96 01/01/21 23:51 68 97 01/01/21 23:46 62 96 01/01/21 23:41 75 133/80 96 01/01/21 23:36 69 97 01/01/21 23:31 67 96 01/01/21 23:26 65 96 01/01/21 23:21 70 96 01/01/21 23:16 68 96 01/01/21 23:11 81 136/84 95 01/01/21 23:10 97.7 F 18 01/01/21 23:06 71 94 01/01/21 23:01 73 95 01/01/21 23:00 18 01/01/21 22:56 75 95 01/01/21 22:51 76 96 01/01/21 22:46 76 95 01/01/21 22:41 72 134/75 94 01/01/21 22:36 73 95 01/01/21 22:31 72 97 01/01/21 22:30 18 01/01/21 22:26 71 94 01/01/21 22:21 70 94 Coding Level of Care Code None Diagnoses Severe pre-eclampsia O14.10 Supervision of high-risk O09.90 Chronic hypertension affecting O10.919
--- NOTE | 2021-01-02 10:27 | Anesthesiology Progress Note ---
Date of Service January 02, 2021 Assessment & Plan Admission and Anticipated Discharge Date Admission Date: January 01, 2021 Subjective Patient stated having increasing labor pains. Her epidural was bolused with 3mL of 0.25% bupivacaine and 100mcg of fentanyl. Her epidural PCEA was also pressed. The patient's vital signs were stable throughout. The fetus was having heart rate decelerations, but it was consistent with the pattern prior to the epidural bolus. Dr. Mccall was present. Physical Exam Vital Signs: Last Vital Signs Temp 97.7 F 01/02/21 08:49 Pulse 63 01/02/21 10:21 Resp 20 01/02/21 10:00 BP 129/77 01/02/21 10:19 Pulse Ox 95 01/02/21 10:21 Results & Data ([facility]) Medications Administered Lactated Ringer's (Lr) 1,000 mls @ 125 mls/hr IV .Q8H PRN; Protocol PRN Reason: L&D Protocol Stop: 01/03/21 11:45 Last Infusion: 01/02/21 07:03 Dose: 75 mls/hr Documented by: [id number] Admin: 01/02/21 06:39 Dose: 75 mls/hr Documented by: [id number] Infusion: 01/02/21 06:39 Dose: 75 mls/hr Documented by: [id number] Infusion: 01/02/21 05:30 Dose: 75 mls/hr Documented by: [id number] Infusion: 01/02/21 05:11 Dose: 75 mls/hr Documented by: [id number] Infusion: 01/02/21 04:30 Dose: 75 mls/hr Documented by: [id number] Infusion: 01/02/21 03:30 Dose: 75 mls/hr Documented by: [id number] Infusion: 01/02/21 02:30 Dose: 75 mls/hr Documented by: [id number] Infusion: 01/02/21 01:30 Dose: 75 mls/hr Documented by: [id number] Infusion: 01/02/21 00:29 Dose: 75 mls/hr Documented by: [id number] Infusion: 01/02/21 00:23 Dose: 75 mls/hr Documented by: [id number] Admin: 01/01/21 23:54 Dose: 999 mls/hr Documented by: [id number] Infusion: 01/01/21 23:54 Dose: 75 mls/hr Documented by: [id number] Infusion: 01/01/21 22:53 Dose: 75 mls/hr Documented by: [id number] Infusion: 01/01/21 18:50 Dose: 75 mls/hr Documented by: [id number] Infusion: 01/01/21 17:54 Dose: 75 mls/hr Documented by: [id number] Admin: 01/01/21 14:58 Dose: 125 mls/hr Documented by: [id number] Penicillin G Potassium 3 mu/ (Dextrose) 106 mls @ 100 mls/hr IV Q4H PRN PRN Reason: Give until delivery Stop: 01/11/21 11:45 Last Infusion: 01/02/21 08:49 Dose: 0 mls/hr Documented by: [id number] Admin: 01/02/21 07:47 Dose: 100 mls/hr Documented by: [id number] Infusion: 01/02/21 03:30 Dose: 100 mls/hr Documented by: [id number] Infusion: 01/02/21 00:23 Dose: 100 mls/hr Documented by: [id number] Infusion: 01/01/21 23:30 Dose: 100 mls/hr Documented by: [id number] Admin: 01/01/21 23:07 Dose: 100 mls/hr Documented by: [id number] Oxytocin (Pitocin) 30 units in 500 mls @ 26 mls/hr IV .[id number] PRN; Protocol PRN Reason: Labor Induction/Augmentation Stop: 01/03/21 13:05 Last Titration: 01/02/21 07:03 Dose: 1.56 units/hr, 26 mls/hr Documented by: [id number] Titration: 01/02/21 05:50 Dose: 1.44 units/hr, 24 mls/hr Documented by: [id number] Titration: 01/02/21 05:30 Dose: 1.32 units/hr, 22 mls/hr Documented by: [id number] Titration: 01/02/21 05:11 Dose: 1.2 units/hr, 20 mls/hr Documented by: [id number] Titration: 01/02/21 04:30 Dose: 1.2 units/hr, 20 mls/hr Documented by: [id number] Titration: 01/02/21 03:30 Dose: 1.2 units/hr, 20 mls/hr Documented by: [id number] Titration: 01/02/21 02:30 Dose: 1.2 units/hr, 20 mls/hr Documented by: [id number] Titration: 01/02/21 01:55 Dose: 1.08 units/hr, 18 mls/hr Documented by: [id number] Titration: 01/02/21 01:30 Dose: 0.96 units/hr, 16 mls/hr Documented by: [id number] Titration: 01/02/21 01:23 Dose: 0.96 units/hr, 16 mls/hr Documented by: [id number] Titration: 01/02/21 00:29 Dose: 0.84 units/hr, 14 mls/hr Documented by: [id number] Titration: 01/02/21 00:23 Dose: 0.84 units/hr, 14 mls/hr Documented by: [id number] Titration: 01/01/21 23:30 Dose: 0.84 units/hr, 14 mls/hr Documented by: [id number] Titration: 01/01/21 22:53 Dose: 0.84 units/hr, 14 mls/hr Documented by: [id number] Titration: 01/01/21 22:31 Dose: 0.84 units/hr, 14 mls/hr Documented by: [id number] Titration: 01/01/21 21:35 Dose: 0.72 units/hr, 12 mls/hr Documented by: [id number] Titration: 01/01/21 20:40 Dose: 0.6 units/hr, 10 mls/hr Documented by: [id number] Titration: 01/01/21 20:10 Dose: 0.48 units/hr, 8 mls/hr Documented by: [id number] Titration: 01/01/21 19:40 Dose: 0.36 units/hr, 6 mls/hr Documented by: [id number] Titration: 01/01/21 18:52 Dose: 0.24 units/hr, 4 mls/hr Documented by: [id number] Titration: 01/01/21 18:50 Dose: 0.12 units/hr, 2 mls/hr Documented by: [id number] Titration: 01/01/21 15:35 Dose: 0.12 units/hr, 2 mls/hr Documented by: [id number] Admin: 01/01/21 14:59 Dose: 0.06 units/hr, 1 mls/hr Documented by: [id number] Cosigned by: [id number] Magnesium Sulfate (Magnesium Sulfate / Wtr) 40 gm in 1,000 mls @ 50 mls/hr IV .Q20H JEEVAN Stop: 01/31/21 16:59 Last Infusion: 01/02/21 07:03 Dose: 50 mls/hr Documented by: [id number] Cosigned by: [id number] Infusion: 01/02/21 05:30 Dose: 50 mls/hr Documented by: [id number] Cosigned by: [id number] Infusion: 01/02/21 05:11 Dose: 50 mls/hr Documented by: [id number] Cosigned by: [id number] Infusion: 01/02/21 04:30 Dose: 50 mls/hr Documented by: [id number] Cosigned by: [id number] Infusion: 01/02/21 03:30 Dose: 50 mls/hr Documented by: [id number] Cosigned by: [id number] Infusion: 01/02/21 02:30 Dose: 50 mls/hr Documented by: [id number] Cosigned by: [id number] Infusion: 01/02/21 01:30 Dose: 50 mls/hr Documented by: [id number] Cosigned by: [id number] Infusion: 01/02/21 00:29 Dose: 50 mls/hr Documented by: [id number] Cosigned by: [id number] Infusion: 01/01/21 23:30 Dose: 50 mls/hr Documented by: [id number] Cosigned by: [id number] Infusion: 01/01/21 22:52 Dose: 50 mls/hr Documented by: [id number] Cosigned by: [id number] Infusion: 01/01/21 17:53 Dose: 50 mls/hr Documented by: [id number] Cosigned by: [id number] Admin: 01/01/21 17:18 Dose: 200 mls/hr Documented by: [id number] Cosigned by: [id number] Labetalol HCl (Labetalol Hcl 300 Mg Tab) 300 mg PO Q8H JEEVAN Stop: 01/31/21 12:59 Last Admin: 01/02/21 04:56 Dose: 300 mg Documented by: [id number] Admin: 01/01/21 20:39 Dose: 300 mg Documented by: [id number] Admin: 01/01/21 13:08 Dose: 300 mg Documented by: [id number] Ondansetron HCl (Ondansetron Inj 2 Mg/Ml 2 Ml Vial) 4 mg IV Q6H PRN PRN Reason: Nausea And Vomiting Stop: 01/31/21 14:52 Last Admin: 01/01/21 15:01 Dose: 4 mg Documented by: [id number] Ropivacaine (Fentanyl 2mcg/Ml Ropivacaine 1.25mg/Ml 100 Ml Bag) 100 ml EPI PRN PRN; Protocol PRN Reason: Pain R/T Labor Stop: 01/03/21 01:08 Last Admin: 01/02/21 08:40 Dose: 100 ml Documented by: [id number] Cosigned by: [id number]
[2021-01-02] MEDS: ONDANSETRON INJ 2 MG/ML 2 ML VIAL IV PRN ×2 (11:14→15:28)
--- NOTE | 2021-01-02 11:30 | Labor Progress Brief Note ---
Date of Service January 02, 2021 Subjective Still minimal relief Assessment & Plan (1) Severe pre-eclampsia: 25yo at 36.2 weeks GA. IOL for severe PIH. 1. Fetus: Cat 2, good response to scalp stim 2. Labor: pit at 26, s/p srom. IUPC placed for more accurate monitoring, variables improved 3.Vitals/PIH: On Mg. BPs normal to mild range. Continue home BP meds. 4. GBS unknown: PCN. Admission and Anticipated Discharge Date Admission Date: January 01, 2021 Physical Exam Genitourinary: Manual OB Exam: + cervical dilation 8 cm, + cervical effacement (anterior lip slightly swollen) 80% and + station -1 and 0 OB Exam Monitor Tracing: + external FHT monitor used, + intra-uterine pressure catheter used (q3-4, appear adequate when zeroed) and + category II (105/mod/-accel/fewer variables, accel noted with scalp stim) Results & Data ([facility]) Vital Signs (Past 12 Hours) Vital Signs Temp Pulse Resp BP Pulse Ox 01/02/21 11:21 65 94 01/02/21 11:20 59 L 144/81 H 01/02/21 11:16 63 95 01/02/21 11:12 68 164/89 H 01/02/21 11:11 71 94 01/02/21 11:06 71 94 01/02/21 11:05 80 123/68 01/02/21 11:01 67 93 01/02/21 10:56 67 94 01/02/21 10:51 69 94 01/02/21 10:49 75 133/77 01/02/21 10:47 65 129/81 01/02/21 10:46 78 96 01/02/21 10:45 97.7 F 71 18 135/80 01/02/21 10:43 74 135/76 01/02/21 10:41 76 131/75 95 01/02/21 10:39 65 118/69 01/02/21 10:38 69 113/63 01/02/21 10:36 64 136/76 94 01/02/21 10:34 64 118/74 01/02/21 10:32 70 111/79 01/02/21 10:31 70 93 01/02/21 10:29 65 127/77 01/02/21 10:27 66 121/70 01/02/21 10:26 67 94 01/02/21 10:25 68 120/66 01/02/21 10:24 65 124/65 01/02/21 10:22 61 111/71 01/02/21 10:21 63 95 01/02/21 10:19 74 129/77 01/02/21 10:17 64 124/68 01/02/21 10:16 71 95 01/02/21 10:15 75 125/68 01/02/21 10:13 69 130/73 01/02/21 10:11 68 126/66 94 01/02/21 10:09 73 144/66 H 01/02/21 10:08 77 146/66 H 01/02/21 10:06 73 96 01/02/21 10:05 71 144/91 H 01/02/21 10:03 64 143/87 H 01/02/21 10:01 65 145/85 H 95 01/02/21 10:00 20 01/02/21 09:59 64 141/79 H 01/02/21 09:57 64 141/78 H 01/02/21 09:56 83 96 01/02/21 09:51 64 95 01/02/21 09:47 76 133/89 01/02/21 09:46 75 94 01/02/21 09:41 58 L 94 01/02/21 09:36 65 95 01/02/21 09:32 67 128/77 01/02/21 09:31 69 96 01/02/21 09:30 22 01/02/21 09:26 70 96 01/02/21 09:21 68 96 01/02/21 09:17 65 137/81 01/02/21 09:16 63 95 01/02/21 09:11 60 95 01/02/21 09:06 59 L 95 01/02/21 09:02 64 144/73 H 01/02/21 09:01 68 95 01/02/21 08:56 72 96 01/02/21 08:51 62 95 01/02/21 08:49 97.7 F 18 01/02/21 08:47 69 138/69 01/02/21 08:46 68 95 01/02/21 08:41 72 96 01/02/21 08:36 64 96 01/02/21 08:33 62 128/61 01/02/21 08:31 71 95 01/02/21 08:26 60 95 01/02/21 08:21 66 95 01/02/21 08:17 73 132/76 01/02/21 08:16 68 97 01/02/21 08:11 65 95 01/02/21 08:06 65 95 01/02/21 08:03 71 147/73 H 01/02/21 08:01 78 96 01/02/21 07:56 66 96 01/02/21 07:51 86 96 01/02/21 07:48 67 127/70 01/02/21 07:46 67 96 01/02/21 07:41 68 97 01/02/21 07:36 81 97 01/02/21 07:33 63 145/90 H 01/02/21 07:31 72 96 01/02/21 07:30 18 01/02/21 07:26 77 97 01/02/21 07:21 73 97 01/02/21 07:17 67 171/88 H 01/02/21 07:16 70 96 01/02/21 07:11 66 95 01/02/21 07:06 73 96 01/02/21 07:02 77 142/79 H 01/02/21 07:01 73 95 01/02/21 07:00 97.9 F 18 01/02/21 06:56 64 96 01/02/21 06:51 67 95 01/02/21 06:48 68 147/93 H 01/02/21 06:46 74 95 01/02/21 06:41 73 95 01/02/21 06:36 69 95 01/02/21 06:33 65 147/91 H 01/02/21 06:31 71 94 01/02/21 06:26 72 96 01/02/21 06:21 67 95 01/02/21 06:17 67 130/58 L 01/02/21 06:16 66 94 01/02/21 06:11 66 94 01/02/21 06:06 71 94 01/02/21 06:03 65 167/90 H 01/02/21 06:01 74 94 01/02/21 06:00 18 01/02/21 05:56 74 94 01/02/21 05:51 67 95 01/02/21 05:47 64 156/89 H 01/02/21 05:46 66 94 01/02/21 05:45 97.9 F 18 01/02/21 05:41 63 94 01/02/21 05:36 64 94 01/02/21 05:32 63 161/90 H 01/02/21 05:31 67 94 01/02/21 05:26 67 94 01/02/21 05:21 69 95 01/02/21 05:18 64 159/92 H 01/02/21 05:16 65 93 01/02/21 05:11 65 94 01/02/21 05:06 70 94 01/02/21 05:02 67 164/92 H 01/02/21 05:01 67 94 01/02/21 05:00 18 01/02/21 04:56 75 95 01/02/21 04:51 64 94 01/02/21 04:47 65 157/85 H 01/02/21 04:46 66 94 01/02/21 04:41 67 93 01/02/21 04:36 66 94 01/02/21 04:33 67 166/88 H 01/02/21 04:31 70 94 01/02/21 04:26 64 94 01/02/21 04:21 64 94 01/02/21 04:17 65 158/87 H 01/02/21 04:16 69 94 01/02/21 04:11 76 95 01/02/21 04:06 62 95 01/02/21 04:02 66 157/93 H 01/02/21 04:01 65 95 01/02/21 04:00 18 01/02/21 03:56 63 95 01/02/21 03:51 78 96 01/02/21 03:48 80 135/77 01/02/21 03:46 77 95 01/02/ 03:41 71 96 01/02/21 03:36 70 96 01/02/21 03:32 71 131/74 0622/21 03:31 72 94 01/02/21 03:26 72 95 01/02/ 03:21 71 95 062221 03:17 72 140/73 01/02/21 03:16 77 95 01/02/21 03:11 78 94 01/02/21 03:06 81 95 06/21 03:05 97.9 F 16 95 01/02/21 03:02 73 133/74 01/02/21 03:01 74 95 01/02/21 03:00 16 01/02/21 02:56 70 95 01/02/21 02:51 69 95 01/02/21 02:47 73 142/81 H 01/02/21 02:46 75 95 01/02/21 02:41 69 93 01/02/21 02:36 72 95 01/02/21 02:33 69 140/79 01/02/21 02:31 75 95 01/02/21 02:26 81 94 01/02/21 02:21 70 95 01/02/21 02:17 71 140/75 01/02/21 02:16 74 92 01/02/21 02:11 75 94 01/02/21 02:06 69 93 01/02/21 02:02 68 138/73 01/02/21 02:01 71 18 93 01/02/21 01:56 71 95 01/02/21 01:51 72 95 01/02/21 01:48 71 132/67 01/02/21 01:46 74 96 01/02/21 01:41 74 94 01/02/21 01:36 69 95 01/02/21 01:31 68 137/69 95 01/02/21 01:29 71 138/74 01/02/21 01:27 68 142/70 H 01/02/21 01:26 72 95 01/02/21 01:25 71 143/73 H 01/02/21 01:23 68 137/72 01/02/21 01:21 67 134/73 96 01/02/21 01:19 67 139/74 01/02/21 01:17 68 132/70 01/02/21 01:16 70 95 01/02/21 01:15 69 141/77 H 01/02/21 01:13 70 135/72 01/02/21 01:11 68 129/73 95 01/02/21 01:09 65 126/66 01/02/21 01:07 70 132/71 01/02/21 01:06 71 96 01/02/21 01:05 73 126/61 01/02/21 01:03 74 113/57 L 01/02/21 01:01 71 123/65 95 01/02/21 01:00 16 01/02/21 00:59 67 117/60 01/02/21 00:57 69 115/58 L 01/02/21 00:56 68 96 01/02/21 00:55 81 115/59 L 01/02/21 00:52 71 132/70 01/02/21 00:51 78 97 01/02/21 00:48 68 134/84 01/02/21 00:46 75 128/83 96 01/02/21 00:41 70 141/90 H 96 01/02/21 00:36 69 96 01/02/21 00:31 67 96 01/02/21 00:26 67 96 01/02/21 00:21 72 98 01/02/21 00:16 72 96 01/02/21 00:12 71 157/87 H 01/02/21 00:11 63 96 01/02/21 00:06 61 96 01/02/21 00:01 70 95 01/02/21 00:00 18 01/01/21 23:56 63 96 01/01/21 23:51 68 97 01/01/21 23:46 62 96 01/01/21 23:41 75 133/80 96 01/01/21 23:36 69 97 01/01/21 23:31 67 96 Coding Level of Care Code None Diagnoses Severe pre-eclampsia O14.10
[2021-01-02] MEDS: MAGNESIUM SULFATE / WTR 40 GM/1,000 ML BAG IV SCH (11:35)
--- NOTE | 2021-01-02 12:20 | Labor Progress Brief Note ---
Date of Service January 02, 2021 Subjective Feeling more constant pressure, nursing felt only anterior lip was left however thought IUPC was starting come out Assessment & Plan (1) Severe pre-eclampsia: 25yo at 36.2 weeks GA. IOL for severe PIH. 1. Fetus: Cat 2, good response to scalp stim 2. Labor: pit at 26, s/p srom. IUPC replaced 3.Vitals/PIH: On Mg. BPs normal to mild range. Continue home BP meds. 4. GBS unknown: PCN. Admission and Anticipated Discharge Date Admission Date: January 01, 2021 Physical Exam 2 Genitourinary: Manual OB Exam: + cervical dilation 9 cm, + cervical effacement (anterior lip slightly swollen) 80% and + station -1 and 0 OB Exam Monitor Tracing: + external FHT monitor used, + intra-uterine pressure catheter used (q3-4, appear adequate when zeroed) and + category II (105-110/mod/+accel w/ scalp st/variables and earlies) Results & Data ([facility]) Vital Signs (Past 12 Hours) Vital Signs Temp Pulse Resp BP Pulse Ox 01/02/21 12:11 65 94 01/02/21 12:06 70 94 01/02/21 12:05 66 142/78 H 01/02/21 12:01 73 95 01/02/21 11:56 62 94 01/02/21 11:51 62 94 01/02/21 11:50 60 136/78 01/02/21 11:46 64 94 01/02/21 11:41 60 94 01/02/21 11:36 72 94 01/02/21 11:35 62 142/82 H 01/02/21 11:31 70 94 01/02/21 11:30 20 01/02/21 11:26 64 95 01/02/21 11:21 65 94 01/02/21 11:20 59 L 144/81 H 01/02/21 11:16 63 95 01/02/21 11:12 68 164/89 H 01/02/21 11:11 71 94 01/02/21 11:06 71 94 01/02/21 11:05 80 123/68 01/02/21 11:01 67 93 01/02/21 11:00 18 01/02/21 10:56 67 94 01/02/21 10:51 69 94 01/02/21 10:49 75 133/77 01/02/ 10:47 65 129/81 01/02/21 10:46 78 96 01/02/21 10:45 97.7 F 71 18 135/80 01/02/21 10:43 74 135/76 01/02/21 10:41 76 131/75 95 01/02/ 10:39 65 118/69 01/02/21 10:38 69 113/63 01/02/21 10:36 64 136/76 94 01/02/21 10:34 64 118/74 01/02/21 10:32 70 111/79 01/02/21 10:31 70 93 01/02/21 10:30 20 01/02/21 10:29 65 127/77 01/02/21 10:27 66 121/70 01/02/21 10:26 67 94 01/02/21 10:25 68 120/66 01/02/21 10:24 65 124/65 01/02/21 10:22 61 111/71 01/02/21 10:21 63 95 01/02/21 10:19 74 129/77 01/02/21 10:17 64 124/68 01/02/21 10:16 71 95 01/02/21 10:15 75 125/68 01/02/21 10:13 69 130/73 01/02/21 10:11 68 126/66 94 01/02/21 10:09 73 144/66 H 01/02/21 10:08 77 146/66 H 01/02/21 10:06 73 96 01/02/21 10:05 71 144/91 H 01/02/21 10:03 64 143/87 H 01/02/21 10:01 65 145/85 H 95 01/02/21 10:00 20 01/02/21 09:59 64 141/79 H 01/02/21 09:57 64 141/78 H 01/02/21 09:56 83 96 01/02/21 09:51 64 95 01/02/21 09:47 76 133/89 01/02/21 09:46 75 94 01/02/21 09:41 58 L 94 01/02/21 09:36 65 95 01/02/21 09:32 67 128/77 01/02/21 09:31 69 96 01/02/21 09:30 22 01/02/21 09:26 70 96 01/02/21 09:21 68 96 01/02/21 09:17 65 137/81 01/02/21 09:16 63 95 01/02/21 09:11 60 95 01/02/21 09:06 59 L 95 01/02/21 09:02 64 144/73 H 01/02/21 09:01 68 95 01/02/21 09:00 18 01/02/21 08:56 72 96 01/02/21 08:51 62 95 01/02/21 08:49 97.7 F 18 01/02/21 08:47 69 138/69 01/02/21 08:46 68 95 01/02/21 08:41 72 96 01/02/21 08:36 64 96 01/02/21 08:33 62 128/61 01/02/21 08:31 71 95 01/02/21 08:30 20 01/02/21 08:26 60 95 01/02/21 08:21 66 95 01/02/21 08:17 73 132/76 01/02/21 08:16 68 97 01/02/21 08:11 65 95 01/02/21 08:06 65 95 01/02/21 08:03 71 147/73 H 01/02/21 08:01 78 96 01/02/21 08:00 22 01/02/21 07:56 66 96 01/02/21 07:51 86 96 01/02/21 07:48 67 127/70 01/02/21 07:46 67 96 01/02/21 07:41 68 97 01/02/21 07:36 81 97 01/02/21 07:33 63 145/90 H 01/02/21 07:31 72 96 01/02/21 07:30 18 01/02/21 07:26 77 97 01/02/21 07:21 73 97 01/02/21 07:17 67 171/88 H 01/02/21 07:16 70 96 01/02/21 07:11 66 95 2221 07:06 73 96 01/02/21 07:02 77 142/79 H 01/02/21 07:01 73 95 01/02/21 07:00 97.9 F 18 01/02/21 06:56 64 96 01/02/21 06:51 67 95 01/02/21 06:48 68 147/93 H 01/02/21 06:46 74 95 01/02/21 06:41 73 95 01/02/21 06:36 69 95 01/02/21 06:33 65 147/91 H 01/02/21 06:31 71 94 01/02/21 06:26 72 96 01/02/21 06:21 67 95 01/02/21 06:17 67 130/58 L 01/02/21 06:16 66 94 01/02/21 06:11 66 94 01/02/21 06:06 71 94 01/02/21 06:03 65 167/90 H 01/02/21 06:01 74 94 01/02/21 06:00 18 01/02/21 05:56 74 94 01/02/21 05:51 67 95 01/02/21 05:47 64 156/89 H 01/02/21 05:46 66 94 01/02/21 05:45 97.9 F 18 01/02/21 05:41 63 94 01/02/21 05:36 64 94 01/02/21 05:32 63 161/90 H 01/02/21 05:31 67 94 01/02/21 05:26 67 94 01/02/21 05:21 69 95 01/02/21 05:18 64 159/92 H 01/02/21 05:16 65 93 01/02/21 05:11 65 94 01/02/21 05:06 70 94 01/02/21 05:02 67 164/92 H 01/02/21 05:01 67 94 01/02/21 05:00 18 01/02/21 04:56 75 95 01/02/21 04:51 64 94 01/02/21 04:47 65 157/85 H 01/02/21 04:46 66 94 01/02/21 04:41 67 93 01/02/21 04:36 66 94 01/02/21 04:33 67 166/88 H 01/02/21 04:31 70 94 01/02/21 04:26 64 94 01/02/21 04:21 64 94 01/02/21 04:17 65 158/87 H 01/02/21 04:16 69 94 0622/ 04:11 76 95 01/02/ 04:06 62 95 01/02/21 04:02 66 157/93 H 01/02/21 04:01 65 95 06/ 04:00 18 01/02/21 03:56 63 95 01/02/ 03:51 78 96 01/02/21 03:48 80 135/77 01/02/ 03:46 77 95 01/02/21 03:41 71 96 06/ 03:36 70 96 22/21 03:32 71 131/74 01/02/ 03:31 72 94 01/02/ 03:26 72 95 01/02/21 03:21 71 95 01/02/ 03:17 72 140/73 01/02/ 03:16 77 95 01/02/ 03:11 78 94 01/02/ 03:06 81 95 01/02/ 03:05 97.9 F 16 95 01/02/21 03:02 73 133/74 01/02/ 03:01 74 95 01/02/ 03:00 16 01/02/21 02:56 70 95 01/02/21 02:51 69 95 01/02/21 02:47 73 142/81 H 01/02/21 02:46 75 95 01/02/21 02:41 69 93 01/02/21 02:36 72 95 01/02/21 02:33 69 140/79 01/02/21 02:31 75 95 01/02/21 02:26 81 94 22/21 02:21 70 95 22/21 02:17 71 140/75 22/21 02:16 74 92 01/02/21 02:11 75 94 22/21 02:06 69 93 22/21 02:02 68 138/73 22/21 02:01 71 18 93 22/21 01:56 71 95 0622/21 01:51 72 95 22/21 01:48 71 132/67 0622/21 01:46 74 96 0622/21 01:41 74 94 0622/21 01:36 69 95 22/21 01:31 68 137/69 95 0622/21 01:29 71 138/74 01/02/21 01:27 68 142/70 H 01/02/21 01:26 72 95 01/02/21 01:25 71 143/73 H 01/02/21 01:23 68 137/72 01/02/21 01:21 67 134/73 96 01/02/21 01:19 67 139/74 01/02/21 01:17 68 132/70 01/02/21 01:16 70 95 01/02/21 01:15 69 141/77 H 01/02/21 01:13 70 135/72 01/02/21 01:11 68 129/73 95 01/02/21 01:09 65 126/66 01/02/21 01:07 70 132/71 01/02/21 01:06 71 96 01/02/21 01:05 73 126/61 01/02/21 01:03 74 113/57 L 01/02/21 01:01 71 123/65 95 01/02/21 01:00 16 01/02/21 00:59 67 117/60 01/02/21 00:57 69 115/58 L 01/02/21 00:56 68 96 01/02/21 00:55 81 115/59 L 01/02/21 00:52 71 132/70 01/02/21 00:51 78 97 01/02/21 00:48 68 134/84 01/02/21 00:46 75 128/83 96 01/02/21 00:41 70 141/90 H 96 01/02/21 00:36 69 96 01/02/21 00:31 67 96 01/02/21 00:26 67 96 01/02/21 00:21 72 98 Coding Level of Care Code None Diagnoses Severe pre-eclampsia O14.10
[2021-01-02] MEDS: OXYTOCIN 30 UNITS/500 ML BAG IV PRN ×2 (13:36→14:06)
--- NOTE | 2021-01-02 13:39 | Delivery Summary ---
Vaginal Delivery Summary Date of Service January 02, 2021 PREOPERATIVE DIAGNOSIS: 1. Single intrauterine at 36 2/7 wga 2. Chronic hypertension on medication with superimposed pre-eclampsia with severe features POSTOPERATIVE DIAGNOSIS: 1. Single intrauterine at 36 2/7 wga 2. Chronic hypertension on medication with superimposed pre-eclampsia with severe features 3. Delivered PROCEDURE: 1. Normal spontaneous vaginal delivery. SURGEON: Nilsa Mccall MD ANESTHESIA: Epidural. ESTIMATED BLOOD LOSS: 400 mL FLUIDS: Continuous LR. URINE OUTPUT: None. COMPLICATIONS: None. CONDITION: Stable. INDICATIONS: 25 y/o at 36 2/7 wga presented to L&D 1 day ago after being seen in clinic as a blood pressure check. Was diagnosed with superimposed pre- eclampsia during a suspected acute exacerbation of chronic hypertension. Her case was discussed with [facility] who recommended observation and monitoring of blood pressures with titration of labetalol but delivery if unable to control BPs. She was titrated up to labetalol 300mg TID and discharged home with stable BPs. Yesterday, she presented to BP check where pressures were again severe, and patient endorsed headache unrelieved by tylenol and intermittent visual changes as well as new SOB while laying down. As such, she was diagnosed with superimposed severe features and recommended for delivery. Magnesium was started for seizure prophylaxis and penicillin was started for GBS unknown prophylaxis. Lindsey bulb was placed and pitocin started. She received an epidural for pain control. She underwent spontaneous rupture of membranes and lindsey bulb was removed. She continued to progress until complete and desired to push. FINDINGS: A viable male infant with Apgars of 7 and 9 at 1 and 5 minutes respectively. SPECIMEN: Cord blood, cord gases, placenta OPERATIVE REPORT: The patient progressed to 10 cm, 100% effaced and +2 station, pushed over intact perineum with anesthesia to deliver a viable male , weight and Apgars as above. Head of delivered in ALCIRA position. No nuchal cord was present. Body and shoulders were delivered without difficulty. was delivered to maternal abdomen and nursing staff. Delayed cord clamping was performed for 60 seconds. Cord was clamped and cut. Cord blood was obtained. Placenta delivered spontaneously intact with 3-vessel cord. IV oxytocin and fundal massage were given for excellent hemostasis. Vagina, cervix, perineum, and placenta were inspected. No lacerations were noted. Uterus was noted to be intermittently atonic that improved with fundal massage and so 1000mcg cytotec was placed IN. Sponge and needle counts correct x2. No sponges were left behind. Mother and stable in immediate period. Vaginal Delivery Summary [facility] Vaginal Delivery Charge Vaginal Delivery Codes: 88696 global code for the antepartum, delivery, and post- Delivery Type Details:
[2021-01-02] MEDS ORDERED: miSOPROStoL 100 MCG TAB ONE (13:47)
[2021-01-02] MEDS ORDERED: BENZOCAINE 20% AER SPR 82.5 GM CAN EXT PRN (14:01)
[2021-01-02] MEDS ORDERED: SUPERCREAM 0.870% 15 GM JAR EXT PRN (14:01)
[2021-01-02] MEDS ORDERED: DIPHTHERIA/TETANUS/PERTUSSIS 0.5 ML SYR/VIAL IM ONE (14:01)
[2021-01-02] MEDS ORDERED: OXYTOCIN 30 UNITS/500 ML BAG IV PRN (14:01)
[2021-01-02] MEDS ORDERED: HYDROCORTISONE ACETATE 25 MG SUPP PR PRN (14:01)
[2021-01-02] MEDS ORDERED: bisacodyL 10 MG SUPP PR PRN (14:01)
[2021-01-02 14:13] LABS: Base Excess Cord Arterial Bld -4.4 mEq/L (-9-1.8); CO2 Cord Arterial Blood 54 mmHg (39.1-73.5); HCO3 Cord Arterial Blood 24 mmol/L (19.7-28.5); Oxygen Sat Cord Arterial Blood < 60.0 % (<60); PO2 Cord Arterial Blood 23 mmHg (4.1-31.7); pH Cord Arterial Blood 7.26 (7.1-7.38)
[2021-01-02 14:16] LABS: Base Excess Cord Venous Blood -1.6 mEq/L (-7.7-1.9); Cord Venous Blood HCO3 24 mmol/L (18.4-26.8); Cord Venous Blood PCO2 41 mmHg (30.4-57.2); Cord Venous Blood PO2 37 mmHg (14.1-43.3); Cord Venous Blood pH 7.38 (7.20-7.44)
--- NOTE | 2021-01-02 14:32 | Anesthesia Procedure Note ---
Date of Service January 02, 2021 Anesthesia Post Epidural Note Vital Signs Vital Signs: Temp Pulse Resp BP Pulse Ox 97.7 F 66 20 151/90 H 98 01/02/21 10:45 01/02/21 14:27 01/02/21 12:30 01/02/21 14:20 01/02/21 14:27 Pain Intensity Bilateral Abdomen: Pain Intensity: 3 Notes Mental Status: alert / awake / arousable and participated in evaluation Nausea / Vomiting: adequately controlled Pain: adequately controlled Airway Patency, RR, SpO2: stable & adequate BP & HR: stable & adequate Hydration State: stable & adequate Neuraxial Anesthesia: was administered and sensory block is resolving Anesthetic Complications: no major complications apparent and Pt Satisfied with anesthetic care Epidural: Removed without complications and With tip intact
[2021-01-02] MEDS: DOCUSATE SODIUM 100 MG CAP PO SCH (21:10)
[2021-01-03] MEDS: IBUPROFEN 600 MG TAB PO PRN ×3 (03:00→20:16)
[2021-01-03] MEDS: LABETALOL HCL 300 MG TAB PO SCH ×3 (05:00→20:16)
[2021-01-03 06:19] LABS: Hematocrit (blood only) 33.6 % (37-47); Hemoglobin 11.6 g/dL (12.0-16.0); Mean Corpuscular Hemoglobin 31.9 pg (25-34); Mean Corpuscular Hgb Conc 34.5 g/dL (32-36); Mean Corpuscular Volume 92.3 fL (80-100); Mean Platelet Volume 11.2 fL (7.4-10.4); Platelet Count 167 K/uL (130-400); RDW Coefficient of Variation 13.4 % (11.5-14.5); RDW Standard Deviation 44.6 fL (36.4-46.3); Red Blood Count 3.64 M/uL (4.2-5.4); White Blood Count 14.04 K/uL (4.8-10.8)
--- NOTE | 2021-01-03 06:52 | Obstetrical Progress Note ---
Date of Service January 03, 2021 Assessment & Plan (1) state: (2) Severe pre-eclampsia: 25 y/o PP1 s/p at 36 2/7 wga due to cHTN with superimposed PIH w/ SF, on mag, doing well VSS, normal to mild range PIH w/ SF - recommend magnesium x 24 hours from delivery (~1315). UOP adequate, no s/s mag tox. Continue home labetalol 300TID. PP pre-eclampsia labs this AM - will be due to ambulate, void once mag is off. A+/rub imm, continue care Subjective Ambulation: limited ambulation (while on mag) Voiding: lindsey catheter in place Passing Gas:: Yes Diet Tolerance:: clear liquids Lochia:: Small Feeding Type:: breast feeding Pain well managed with medication Review of Systems Denies fevers, chills, n/v, GONZALES, CP, SOB Physical Exam Constitutional WD/WN, vitals as above no acute distress Respiratory normal respiratory effort, lungs clear to auscultation Cardiovascular RRR, no murmur, no edema Gastrointestinal (Abdomen) Percussion/Palpation: abdomen soft; abdomen nontender fundus firm at umbilicus and NT Musculoskeletal BLE symmetric, nonerythematous, nontender Results & Data ([facility]) Vital Signs (Past 12 Hours) Vital Signs Temp Pulse Resp BP Pulse Ox 01/03/21 06:42 71 82 L 01/03/21 06:41 72 86 L 01/03/21 06:36 73 97 01/03/21 06:31 69 98 01/03/21 06:26 69 98 01/03/21 06:21 65 97 01/03/21 06:19 61 133/74 01/03/21 06:16 65 97 01/03/21 06:11 71 97 01/03/21 06:06 70 97 01/03/21 06:01 74 97 01/03/21 06:00 18 01/03/21 05:56 64 97 01/03/21 05:51 70 97 01/03/21 05:49 63 137/83 01/03/21 05:46 73 98 01/03/21 05:41 64 97 01/03/21 05:36 64 97 01/03/21 05:31 70 96 01/03/21 05:26 66 97 01/03/21 05:21 66 97 01/03/21 05:19 63 142/85 H 01/03/21 05:16 66 96 01/03/21 05:11 66 96 01/03/21 05:06 62 96 01/03/21 05:01 72 98 01/03/21 05:00 20 01/03/21 04:56 70 97 01/03/21 04:51 73 97 01/03/21 04:49 65 142/89 H 01/03/21 04:46 67 96 01/03/21 04:41 70 96 01/03/21 04:36 71 96 01/03/21 04:31 74 95 01/03/21 04:26 74 94 01/03/21 04:25 81 94 01/03/21 04:21 74 96 01/03/21 04:19 68 143/84 H 01/03/21 04:16 70 96 01/03/21 04:11 68 96 01/03/21 04:06 66 96 01/03/21 04:01 66 96 01/03/21 04:00 16 01/03/21 03:56 64 96 01/03/21 03:52 79 92 01/03/21 03:51 63 95 01/03/21 03:49 63 135/75 01/03/21 03:46 63 96 01/03/21 03:41 62 96 01/03/21 03:36 62 96 01/03/21 03:31 63 96 01/03/21 03:26 66 95 01/03/21 03:21 71 96 01/03/21 03:19 60 137/74 01/03/21 03:16 63 95 01/03/21 03:11 64 95 01/03/21 03:06 64 95 01/03/21 03:01 75 96 01/03/21 03:00 18 01/03/21 02:56 65 96 01/03/21 02:51 72 95 01/03/21 02:49 67 136/72 01/03/21 02:46 67 96 01/03/21 02:41 69 95 01/03/21 02:36 75 97 01/03/21 02:31 71 96 01/03/21 02:26 67 96 01/03/21 02:21 74 96 01/03/21 02:19 65 134/80 06 02:16 68 96 06 02:11 75 94 06 02:08 81 93 06 02:06 70 94 01/03/21 02:01 62 93 01/03/21 01:59 63 94 01/03/21 01:56 64 94 01/03/21 01:51 63 94 01/03/21 01:49 70 149/89 H 01/03/21 01:48 67 94 01/03/21 01:46 70 94 01/03/21 01:42 65 94 01/03/21 01:41 73 94 01/03/21 01:37 66 94 06 01:36 61 95 01/03/21 01:32 64 94 01/03/21 01:31 60 95 01/03/21 01:26 61 94 01/03/21 01:21 61 94 01/03/21 01:19 62 94 01/03/21 01:16 62 94 01/03/21 01:13 61 94 01/03/21 01:11 62 94 01/03/21 01:07 62 94 01/03/21 01:06 62 94 06 01:02 59 L 94 01/03/21 01:01 60 95 01/03/21 01:00 16 01/03/21 00:56 61 95 01/03/21 00:52 63 141/89 H 94 01/03/21 00:51 66 94 01/03/21 00:46 68 95 01/03/21 00:41 70 96 01/03/21 00:38 76 94 01/03/21 00:36 79 95 06 00:31 68 95 01/03/21 00:30 69 94 06 00:26 71 94 06 00:24 72 94 06 00:22 71 127/68 06 00:21 71 94 06 00:16 70 94 06 00:12 69 94 06 00:11 69 95 06 00:07 79 94 06 00:06 81 94 06 00:01 63 94 01/03/21 00:00 65 18 94 06/22/21 23:56 65 96 06/22/21 23:52 68 130/75 06/22/21 23:51 68 97 06/22/21 23:46 67 96 06/22/21 23:41 77 95 06/22/21 23:36 70 94 06/22/21 23:35 62 94 06/22/21 23:31 63 94 0622/21 23:28 64 94 0622/21 23:26 64 94 0622/21 23:22 62 134/77 94 0622/21 23:21 66 95 0622/21 23:16 74 95 0622/21 23:13 68 94 0622/21 23:11 74 93 0622/21 23:06 71 95 0622/21 23:03 68 94 0622/21 23:01 72 93 0622/21 23:00 98.2 F 62 16 134/77 94 0622/21 22:56 67 94 0622/21 22:55 69 94 0622/21 22:52 70 123/74 0622/21 22:51 61 94 0622/21 22:48 79 94 0622/21 22:46 63 93 06/22/21 22:41 63 93 0622/21 22:36 62 93 0622/21 22:31 71 94 0622/21 22:26 69 94 0622/21 22:22 70 130/81 22/21 22:21 64 93 0622/21 22:16 72 94 0622/21 22:11 74 93 0622/21 22:06 79 95 0622/21 22:05 68 93 0622/21 22:01 69 16 94 0622/21 21:59 69 94 06/22/21 21:56 67 95 06/22/21 21:53 68 94 06/22/21 21:52 65 142/90 H 0622/21 21:51 75 94 06/22/21 21:47 73 93 06/22/21 21:46 78 94 0622/21 21:41 65 94 0622/21 21:37 70 94 0622/21 21:36 69 95 0622/21 21:33 67 172/102 H 0622/21 21:31 68 96 0622/21 21:26 74 96 22/21 21:21 72 96 22/21 21:16 73 95 22/21 21:11 75 94 22/21 21:08 70 142/79 H 94 22/21 21:06 70 94 01/02/ 21:05 20 01/02/21 21:03 71 94 22 21:01 70 94 01/02/21 20:56 70 94 01/02/21 20:51 71 93 01/02/21 20:46 68 94 22/21 20:41 76 94 22/21 20:40 78 93 01/02/ 20:36 75 95 01/02/ 20:32 84 94 01/02/21 20:31 81 95 01/02/ 20:26 148/91 H 01/02/21 20:22 162/100 H 01/02/21 20:12 73 95 01/02/21 20:07 76 94 01/02/21 20:05 76 130/69 01/02/21 20:04 18 01/02/21 20:02 76 95 01/02/21 19:57 76 95 01/02/ 19:52 79 96 01/02/ 19:47 76 95 01/02/ 19:42 67 95 01/02/21 19:37 65 95 01/02/21 19:35 64 143/87 H 01/02/21 19:32 69 95 22/ 19:27 64 94 01/02/21 19:22 68 95 01/02/21 19:17 70 95 01/02/ 19:12 78 97 01/02/21 19:08 98.2 F 18 01/02/21 19:07 78 96 22/21 19:05 75 134/78 01/02/ 19:02 87 95 22/21 18:57 79 94 01/02/ 18:52 67 94
[2021-01-03] MEDS: MAGNESIUM SULFATE / WTR 40 GM/1,000 ML BAG IV SCH (07:27)
[2021-01-03] MEDS ORDERED: PRENATAL VITAMIN 1 TAB PO SCH (08:00)
[2021-01-03] MEDS ORDERED: Nursing to Pharmacy Communication SCH (08:00)
[2021-01-03] MEDS: DOCUSATE SODIUM 100 MG CAP PO SCH ×2 (08:12→20:15)
[2021-01-03] MEDS: FERROUS SULFATE 325 MG TAB PO SCH (08:12)
[2021-01-03 08:37] LABS: Albumin Level 2.3 gm/dl (3.4-5.0); BUN Creatinine Ratio 13.7 (10-20); Calcium 6.8 mg/dl (8.5-10.1); Creatinine Clr Calc Pharmacy 123.2 ml/min; Est GFR (African American) 117.1 ml/min; Potassium 4.2 mmol/L (3.5-5.1)
[2021-01-03 08:40] LABS: Albumin Globulin Ratio 0.6 (0.9-2); Bilirubin,Total 0.3 mg/dl (0.2-1); Globulin 3.8 gm/dl (2.5-4.0); Total Protein 6.1 gm/dl (6.4-8.2)
[2021-01-03] MEDS ORDERED: SIMETHICONE 80 MG CHEW PO PRN (09:32)
[2021-01-03] MEDS: ACETAMINOPHEN 325 MG TAB PO PRN (17:37)
[2021-01-03] MEDS ORDERED: bisacodyL 5 MG TABEC PO SCH (20:00)
[2021-01-03] MEDS: PRENATAL VITAMIN 1 TAB PO SCH (20:15)
[2021-01-04] MEDS: IBUPROFEN 600 MG TAB PO PRN ×3 (00:26→23:48)
[2021-01-04] MEDS: LABETALOL HCL 300 MG TAB PO SCH (05:12)
[2021-01-04 07:23] LABS: Hematocrit (blood only) 33.7 % (37-47); Hemoglobin 11.2 g/dL (12.0-16.0)
--- NOTE | 2021-01-04 07:45 | Obstetrical Progress Note ---
Date of Service January 04, 2021 Assessment & Plan (1) state: continue current care plan (2) Chronic hypertension affecting : continue to watch BP this morning BP's had normalized but have now increased again at last to checks Subjective Ambulation: ambulating normally Voiding: no voiding problems Passing Gas:: Yes Diet Tolerance:: regular diet Lochia:: Small headache has resolved lochia small no PIH symptoms mild swelling in feet Review of Systems All systems reviewed & are unremarkable except as noted in HPI & below Physical Exam Constitutional WD/WN, vitals as above Psychiatric A+Ox3, euthymic affect Genitourinary OB Exam Abdomen: + fundal height Fundus: + firm and + relation to umbilicus (2 below U) Results & Data ([facility]) Vital Signs (Past 12 Hours) Vital Signs Temp Pulse Resp BP Pulse Ox 01/04/21 05:11 68 168/96 H 01/04/21 04:08 55 L 166/89 H 01/03/21 23:55 98.4 F 65 18 133/82 97 01/03/21 20:10 98.4 F 67 16 139/87 97
[2021-01-04] MEDS: FERROUS SULFATE 325 MG TAB PO SCH (07:51)
[2021-01-04] MEDS: DOCUSATE SODIUM 100 MG CAP PO SCH ×2 (07:51→20:54)
[2021-01-04] MEDS: LABETALOL HCL 100 MG TAB PO SCH ×2 (09:30→17:22)
--- NOTE | 2021-01-04 15:57 | Communication Note ---
Date of Service: January 04, 2021 Visited patient who had questions about timing of discharge. She wants to go home today and is frustrated that she is being asked to stay until tomorrow mo rning. When asked why, she states that she is out of new clothing from home for the baby, and does not want the child to be cold. Reassured that we have plenty of swaddles and clothing for here and can provide whatever is needed. She notes that she thinks her BP is still high because they are buying a new house and the FOB actually closed on it today, in her absence, while she was stuck here in the hospital. The baby's clothes are at the new house. She thinks her BP is high because she is upset about being here instead of at the new home. She also is not sleeping well due to the frequent vital sign checks at night. Empathy expressed. Explained that her blood pressure values today have been at or near the severe range despite recent increase in labetalol dose, and that we do not yet know if she has a medication regimen on which she can safely be managed as an outpatient. She is aware that she can leave against medical advice, but at this time I reiterated that I cannot recommend she leave prior to tomorrow morning, at which point we hopefully will have one full day of documented improvement in BP to a safe range at her present dose. She voices frustration but does not wish to leave AMA at this time and states she has no further questions for me. She is her infant throughout this discussion, and the FOB was in the room but watching TV and did not participate in the discussion.
--- NOTE | 2021-01-04 17:56 | Communication Note ---
Date of Service: January 04, 2021 RN called to notify me of most recent BP from 1634pm as well as the fact that she gave the next labetalol PO dose at 1720. Patient is denying symptoms at t his time. I would like to recheck [facility] labs given consistently elevated BP despite significant increase in antihypertensive dose today; RN aware orders to be placed.
[2021-01-04 18:22] LABS: Hematocrit (blood only) 37.2 % (37-47); Hemoglobin 12.4 g/dL (12.0-16.0); Mean Corpuscular Hemoglobin 32.5 pg (25-34); Mean Corpuscular Volume 97.4 fL (80-100); Mean Platelet Volume 11.2 fL (7.4-10.4); Platelet Count 220 K/uL (130-400); RDW Coefficient of Variation 13.7 % (11.5-14.5); RDW Standard Deviation 47.9 fL (36.4-46.3); Red Blood Count 3.82 M/uL (4.2-5.4); White Blood Count 12.23 K/uL (4.8-10.8)
[2021-01-04 18:38] LABS: Albumin Level 2.8 gm/dl (3.4-5.0); BUN Creatinine Ratio 13.9 (10-20); Calcium 9.4 mg/dl (8.5-10.1); Est GFR (African American) 130.8 ml/min; Est GFR (Non-African American) 112.9 ml/min; Potassium 3.9 mmol/L (3.5-5.1)
[2021-01-04 18:44] LABS: Albumin Globulin Ratio 0.6 (0.9-2); Bilirubin,Total 0.2 mg/dl (0.2-1); Globulin 4.4 gm/dl (2.5-4.0); Total Protein 7.2 gm/dl (6.4-8.2)
[2021-01-04 20:37] LABS: Mean Corpuscular Hgb Conc 33.3 g/dL (32-36)
[2021-01-04] MEDS: ACETAMINOPHEN 325 MG TAB PO PRN (20:54)
[2021-01-04] MEDS: PRENATAL VITAMIN 1 TAB PO SCH (20:54)
[2021-01-05] MEDS: LABETALOL HCL 100 MG TAB PO SCH ×2 (00:24→08:33)
[2021-01-05] MEDS ORDERED: MAG SULFATE 4GM BOLUS FROM BAG IV ONE (04:59)
[2021-01-05] MEDS ORDERED: hydrALAZINE HCL 20 MG/ML VIAL IV STA (04:59)
[2021-01-05] MEDS: MAGNESIUM SULFATE / WTR 40 GM/1,000 ML BAG IV SCH ×2 (05:24→22:39)
--- NOTE | 2021-01-05 05:39 | Obstetrical Progress Note ---
Date of Service January 05, 2021 Assessment & Plan (1) Severe pre-eclampsia: Patient is 25yo on PPD#3 with severe preeclampsia. This is superimposed on cHTN for which she initiated labetalol at 9wk GA. She was mild preeclampsia in the 3rd trimester and progressed to severe features early this week, therefore underwent IOL at 36wk GA. She did have 24hr magnesium, which was discontinued per usual protocol, and she was monitored on 300mg PO TID labetalol. Approximately 24 hours ago her BP was noted to rise, and as I assumed care for her, the discussion between her off-going provided and myself included planning for increase of antihypertensive therapy with continued inpatient care. At that point I increased her dose from 300mg PO TID to 500mg PO TID, and gave the first of that level at short interval, so she has had a total of 1800mg labetalol in the past 24 hours. This approaches max single- agent therapy, and my plan if not adequately controlling her after 24 hours would have been to add second agent orally. However as of 0 there is marked increase in her BP as well as new onset clonus. Although the patient has no complaints of GONZALES or other neurologic symptoms, and her labs are without evidence of renal or hepatic dysfunction, she has signs of neurologic irritability and therefore I am resuming IV magnesium therapy and antihypertensives due to hypertensive urgency. Her pulse is about 60 at rest, so will use IV hydralazine as the acute agent rather than adding CCB; risk of reflex tachy not a major concern in this patient at this time. I have been at bedside or just outside her room throughout this situation to assist if needed. She is remaining in her physical room S440 but being resumed as "L&D status" and transferred to [facility], with quality assurance monitor final applied and IV team re-establishing access which had previously been discontinued. Admission and Anticipated Discharge Date Admission Date: January 01, 2021 Jeremiah Carlton's RN called at about 0430 to notify me of increasing BP values despite prior dose of labetalol, which was her third dose at 500mg PO TID dosing level, and patient concerns regarding what would be her plan of care and why she was not improving. I came directly to her bedside along with Melva COONE[facility]. Bianka denied any current GONZALES, vision changes, RUQ pain or other symptoms. She stated she feels "fine." She admitted to a "little headache yesterday night that went away with motrin" but again NO current symptoms. She also mentions that she has not had a cup of coffee in 3 days when she usually has a daily cup. She denies a history of anxiety but notes "I'm anxious right now." Physical Exam Constitutional: WD/WN, vitals as above well developed Resting supine with HOB up at 30deg and in no evident distress. Calm demeanor. Eyes: PERRL, conjunctivae normal, anicteric sclerae ENMT: external ear and nose normal, oropharynx normal Neck: trachea midline, no thyromegaly Respiratory: normal respiratory effort and able to speak in complete sentences; no respiratory distress and no labored breathing Cardiovascular: Rate/Rhythm: regular rate and regular rhythm Resting HR 60- 72 on monitor which was applied in anticipation of treating BP. Chest (Breasts): Chest: normal inspection of chest Gastrointestinal (Abdomen): Inspection/Auscultation: abdomen normal to inspection; abdomen not distended No RUQ TTP or hepatic enlargement Musculoskeletal: no cyanosis or clubbing, extremities motor strength 5/5 Trace edema BL LE. Patellar reflexes are brisk with obvious clonus, full leg vibration to 3-5 beats is noted both sides. Skin: no rashes, warm and dry Neurologic: awake Moving, speaking normally. Clonus as noted in LEs. Psychiatric: Initially expressing frustration and concern, but calm and reasonable. While chatting with MD in room as IV placed and meds begun as ordered, able to smile, laugh. Genitourinary: no concers, fundal height below umbilicus Results & Data ([facility]) Vital Signs (Past 12 Hours) Vital Signs Temp Pulse Resp BP BP Pulse Ox 01/05/21 04:30 18 199/106 H 01/05/21 04:14 70 176/117 H 01/05/21 00:20 76 190/110 H 01/04/21 23:05 98.4 F 58 L 16 167/96 H 98 01/04/21 19:38 98.2 F 82 18 142/87 H 98 01/04/21 17:55 56 L 174/99 H Laboratory Results Laboratory Results - last 24 hr 01/04/21 01/04/21 01/04/21 07:06 18:06 18:06 WBC 12.23 H RBC 3.82 L Hgb 11.2 L 12.4 Hct 33.7 L 37.2 MCV 97.4 D MCH 32.5 MCHC 33.3 RDW Std Deviation 47.9 H RDW Coeff of Jose 13.7 Plt Count 220 MPV 11.2 H Sodium 140 D Potassium 3.9 Chloride 110 H Carbon Dioxide 24 Anion Gap 6.0 BUN 10 Creatinine 0.73 Est Cr Clr Drug Dosing 135.0 Est GFR ( Amer) 130.8 Est GFR (Non-Af Amer) 112.9 BUN/Creatinine Ratio 13.9 Glucose 79 Calcium 9.4 D Total Bilirubin 0.2 AST 29 ALT 26 Alkaline Phosphatase 117 Total Protein 7.2 Albumin 2.8 L Globulin 4.4 H Albumin/Globulin Ratio 0.6 L PG Care Time/CCT Total # of Minutes Spent Total Time Spent with Patient: Total time spent is greater than 50% in coordination of care (as documented) at patient's floor/unit and/or counseling patient: Coding Level of Care Code None Diagnoses Severe pre-eclampsia O14.10
[2021-01-05] MEDS: DOCUSATE SODIUM 100 MG CAP PO SCH ×2 (08:32→21:18)
[2021-01-05] MEDS: FERROUS SULFATE 325 MG TAB PO SCH (08:33)
--- NOTE | 2021-01-05 11:15 | Hospitalist Consultation ---
Date of Consultation January 05, 2021 Assessment & Plan (1) hypertension: Patient with chronic hypertension diagnosed at 9 weeks of and started on labetalol at that time. She was admitted and induced at 36 weeks for -induced hypertension with severe features of preeclampsia Continues on IV magnesium and with significantly elevated blood pressures here. Fortunately, she is asymptomatic, no evidence of end-organ damage or PRES syndrome at this time. -Recommend increasing labetalol to 600 mg p.o. 3 times daily now If blood pressures remain uncontrolled greater than 150/90 systolic later this afternoon, would add on Procardia XL 30 mg daily I discussed her care with the OB attending at the time of consultation -If develops acute confusion, symptoms of pulmonary edema, chest pains, renal failure, or strokelike symptoms, would recommend urgent MRI imaging of the brain -Can continue IV hydralazine as needed Continue IV magnesium (2) Severe pre-eclampsia: As per OB care (3) Chronic migraine without aura or status migrainosus: Previously on Topamax but stopped this when she found out she was Follow-up with neurology as an outpatient Fortunately she has only had 2 migraines throughout her entire (4) HTN (hypertension): Suspect she will need to remain on antihypertensives after discharge for at least 1 to 2 months and follow-up with PCP Hospitalist service will continue to follow along History of Present Illness Reason for Consultation: Antihypertensive management Requesting Physician: Dr. Nahum Whitaker Attending Physician: Doug Mina MD History of Present Illness This patient is a 25-year-old with a history of chronic hypertension, migraines, and depression now resolved who was admitted for preeclampsia with severe features due to persistent headache and elevated blood pressures despite p.o. labetalol at 36 weeks for induction of labor. She is now 3 days status post and hospital service is consulted for persistent hypertension despite increasing doses of labetalol. She was given 1 dose of IV hydralazine this morning for blood pressure of 199/106. She reports that she had a headache prior to delivery but it is now resolved except for a very mild right retro- orbital headache. She denies any neck pain, no numbness or tingling, no focal w eakness anywhere. She denies chest pains or shortness of breath. She does report that since the IV magnesium was restarted this morning, she feels just generally "heavy" all over. She is frustrated that she is still in the hospital. She is breast-feeding. She denies any changes in vision, no nausea or vomiting, no abdominal pains. She has some very mild 1/10 in severity mid back pain she reports from the hardness of the mattress in the hospital bed. I discussed her care with the on-call RU[employer] COMPOUND[employer] MIXER as well as with the nursing staff. Allergies Allergy/AdvReac Type Severity Reaction Status Date / Time No Known Drug Allergies Allergy Verified 01/01/21 09:47 Home Medications Medication Instructions Recorded Confirmed Type [id number] 1 tab PO DAILY 06/12/20 01/01/21 History [] aspirin 81 mg chewable tablet 81 mg PO DAILY 08/31/20 01/01/21 History breast pump #1 ea 12/07/20 01/01/21 Rx labetalol 300 mg PO Q8H #45 tab 12/28/20 01/01/21 Rx Patient History Medical History 37 weeks gestation of DELIVERED MAR 2020 Abdominal pain Abdominal pain affecting Abnormal menstrual cycle Acute endometritis Appendicitis, acute (01/05/14) Appendicitis, acute Benign essential hypertension Chlamydia as a teenager Chronic hypertension in obstetric context in third trimester Chronic migraine without aura or status migrainosus Complex ovarian cyst Exposure to bloodborne pathogen Exposure to bloodborne pathogen Fatigue Female infertility Fever and chills Finger avulsion Gastritis Headache History of endometriosis HTN (hypertension) Intrauterine growth restriction (IUGR) affecting care of mother, third trimester, single gestation Missed Nausea Nausea Near syncope Ovarian cyst left Pelvic pain PID (acute pelvic inflammatory disease) Right upper quadrant pain Sinus congestion Supervision of normal intrauterine in multigravida Vaginitis Surgical History H/O laparoscopy H/O tooth extraction History of dilation and curettage S/P appendectomy Family History Mother Anemia Depression Endometriosis Diabetes Ovarian cyst Hypertension Hypothyroidism Grandmother (Maternal) Depression Hypertension Aunt Depression Ovarian cyst Social History Smoking Status: Never smoker Second Hand Exposure: No; Hx Alcohol Use: No Hx Substance Use: No Preferred Language: Russian Communication Ability: Effective Communication Ability Comment: wears glasses 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: No Beliefs That Will Affect Care: None marital status: Single marital status details: Omar [phone] Current Living Situation: Significant Other Current Living Situation Comment: lives with FOB, daughter, current occupational status: unemployed Feels Safe at Home: Yes Safety Concerns: Feels Safe At This Time Assistive Devices: None Review of Systems Review of Systems: All systems reviewed & are unremarkable except as noted in HPI & below Physical Exam Constitutional: WD/WN, vitals as above Eyes: PERRL, conjunctivae normal, anicteric sclerae EOM intact bilaterally; no anisocoria and no nystagmus ENMT: external ear and nose normal, oropharynx normal Neck: trachea midline, no thyromegaly Respiratory: normal respiratory effort, lungs clear to auscultation Cardiovascular: RRR, no murmur, no edema Extremities: no calf tenderness Chest (Breasts): Chest: normal inspection of chest Gastrointestinal (Abdomen): normal bowel sounds, soft, nontender, no hepatosplenomegaly Musculoskeletal: Extremities: extremities normal to inspection; no cyanosis and no clubbing Skin: no rashes, warm and dry Neurologic: PERRL, EOMI, accommodation nl, no face palsy, no dysarthria CN's II-XI intact bilaterally, moves all extremities and awake; + abnormal deep tendon reflexes (DTRs 3+ throughout and symmetric, 2 beat clonus in bilat Achilles), no focal motor deficits and not confused Motor/Sensory: no sensory deficit (Intact to light touch throughout upper and lower extremities) Psychiatric: A+Ox3, euthymic affect Lymphatic: no lymphedema Results & Data Results & Data ([facility]) Vital Signs (Past 12 Hours) Vital Signs Pulse Pulse Resp BP BP BP Pulse Ox 01/05/21 11:08 90 99 01/05/21 11:03 84 99 01/05/21 10:58 90 138/78 98 01/05/21 10:53 82 20 97 01/05/21 10:48 72 96 01/05/21 10:43 86 150/84 H 97 01/05/21 10:38 74 96 01/05/21 10:33 75 96 01/05/21 10:28 81 140/80 97 01/05/21 10:23 78 96 01/05/21 10:18 97 H 99 01/05/21 10:13 86 137/83 97 01/05/21 10:08 76 96 01/05/21 10:03 89 97 01/05/21 09:58 88 132/72 97 01/05/21 09:56 95 H 93 01/05/21 09:53 85 97 01/05/21 09:48 79 97 01/05/21 09:45 20 01/05/21 09:43 84 20 133/75 97 01/05/21 09:38 85 97 01/05/21 09:33 92 H 98 01/05/21 09:28 91 H 130/69 98 01/05/21 09:23 88 98 01/05/21 09:18 96 H 98 01/05/21 09:13 87 20 137/75 97 01/05/21 08:45 20 01/05/21 08:39 97 H 99 01/05/21 08:38 85 20 137/83 01/05/21 08:34 95 H 98 01/05/21 08:29 92 H 98 01/05/21 08:24 96 H 98 01/05/21 08:19 83 98 01/05/21 08:18 75 20 135/78 01/05/21 08:14 90 98 01/05/21 08:09 96 H 98 01/05/21 08:04 80 98 01/05/21 07:59 77 98 01/05/21 07:58 78 136/83 01/05/21 07:54 80 98 01/05/21 07:49 85 97 01/05/21 07:45 20 01/05/21 07:44 77 98 01/05/21 07:39 77 98 01/05/21 07:38 76 136/72 01/05/21 07:34 90 98 01/05/21 07:29 89 99 01/05/21 07:24 81 98 01/05/21 07:19 83 99 01/05/21 07:18 81 20 142/83 H 01/05/21 07:14 95 H 98 01/05/21 07:09 80 99 01/05/21 07:04 76 98 01/05/21 06:58 73 145/83 H 01/05/21 06:57 75 97 01/05/21 06:52 74 97 01/05/21 06:47 78 98 01/05/21 06:42 80 98 01/05/21 06:38 80 139/79 01/05/21 06:37 85 98 01/05/21 06:32 94 H 97 01/05/21 06:27 84 98 01/05/21 06:22 80 98 01/05/21 06:18 81 134/80 01/05/21 06:17 75 98 01/05/21 06:12 81 98 01/05/21 06:07 84 97 01/05/21 06:02 83 98 01/05/21 05:58 92 H 142/82 H 01/05/21 05:57 93 H 98 01/05/21 05:52 84 99 01/05/21 05:46 89 98 01/05/21 05:38 156/88 H 01/05/21 05:30 18 01/05/21 05:18 190/102 H 01/05/21 04:30 18 199/106 H 01/05/21 04:14 70 176/117 H 01/05/21 00:20 76 190/110 H Laboratory Results 01/04/21 01/04/21 Range/Units 18:06 18:06 WBC 12.23 H (4.8-10.8) K/uL RBC 3.82 L (4.2-5.4) M/uL Hgb 12.4 (12.0-16.0) g/dL Hct 37.2 (37-47) % MCV 97.4 D (80-100) fL MCH 32.5 (25-34) pg MCHC 33.3 (32-36) g/dL RDW Std Deviation 47.9 H (36.4-46.3) fL RDW Coeff of Jose 13.7 (11.5-14.5) % Plt Count 220 (130-400) K/uL MPV 11.2 H (7.4-10.4) fL Sodium 140 D (136-145) mmol/L Potassium 3.9 (3.5-5.1) mmol/L Chloride 110 H (98-107) mmol/L Carbon Dioxide 24 (21-32) mmol/L Anion Gap 6.0 (3-11) BUN 10 (7-18) mg/dl Creatinine 0.73 (0.6-1.2) mg/dl Est Cr Clr Drug Dosing 135.0 ml/min Est GFR ( Amer) 130.8 ml/min Est GFR (Non-Af Amer) 112.9 ml/min BUN/Creatinine Ratio 13.9 (10-20) Glucose 79 (70-99) mg/dl Calcium 9.4 D (8.5-10.1) mg/dl Total Bilirubin 0.2 (0.2-1) mg/dl AST 29 (15-37) U/L ALT 26 (12-78) U/L Alkaline Phosphatase 117 (45-117) U/L Total Protein 7.2 (6.4-8.2) gm/dl Albumin 2.8 L (3.4-5.0) gm/dl Globulin 4.4 H (2.5-4.0) gm/dl Albumin/Globulin Ratio 0.6 L (0.9-2) PG Care Time/CCT Total # of Minutes Spent Total Time Spent with Patient: Total time spent is greater than 50% in coordination of care (as documented) at patient's floor/unit and/or counseling patient: Coding Level of Care Code 08377 Inpt Consult Level 3 Diagnoses hypertension O16.5 Severe pre-eclampsia O14.10 Chronic migraine without aura or status migrainosus G43.709 Intractability: not intractable HTN (hypertension) I10 (1) Chronic migraine without aura or status migrainosus Intractability: not intractable Qualified Code(s): G43.709 - Chronic migraine without aura, not intractable, without status migrainosus
[2021-01-05] MEDS: IBUPROFEN 600 MG TAB PO PRN ×2 (11:48→21:18)
[2021-01-05] MEDS: LABETALOL HCL 300 MG TAB PO SCH ×2 (14:41→22:28)
[2021-01-05] MEDS: NIFEdipine EXTENDED REL 30 MG TABCR PO SCH (14:41)
[2021-01-05] MEDS: ACETAMINOPHEN 325 MG TAB PO PRN (14:51)
[2021-01-05 18:43] LABS: Hematocrit (blood only) 34.7 % (37-47); Hemoglobin 11.8 g/dL (12.0-16.0); Mean Corpuscular Hemoglobin 32.4 pg (25-34); Mean Corpuscular Volume 95.3 fL (80-100); Mean Platelet Volume 10.6 fL (7.4-10.4); Platelet Count 220 K/uL (130-400); RDW Coefficient of Variation 13.4 % (11.5-14.5); RDW Standard Deviation 46.3 fL (36.4-46.3); Red Blood Count 3.64 M/uL (4.2-5.4); White Blood Count 11.18 K/uL (4.8-10.8)
[2021-01-05] MEDS: LACTATED RINGER'S 1,000 ML IV SCH (18:45)
[2021-01-05 19:12] LABS: Albumin Level 2.8 gm/dl (3.4-5.0); BUN Creatinine Ratio 9.1 (10-20); Calcium 8.3 mg/dl (8.5-10.1); Creatinine Clr Calc Pharmacy 138.8 ml/min; Est GFR (African American) 135.3 ml/min; Est GFR (Non-African American) 116.7 ml/min; Potassium 3.8 mmol/L (3.5-5.1)
[2021-01-05 19:14] LABS: Albumin Globulin Ratio 0.7 (0.9-2); Bilirubin,Total 0.3 mg/dl (0.2-1); Globulin 4.2 gm/dl (2.5-4.0)
--- NOTE | 2021-01-05 20:55 | Obstetrical Progress Note ---
Date of Service January 05, 2021 Assessment & Plan Admission and Anticipated Discharge Date Admission Date: January 01, 2021 Subjective Patient is ambulating in room. BPs have improved throughout the afternoon and evening today. She is very much wanting to go home. We discussed continuing magnesium for the full 24h, then will plan to continue to monitor BPs tomorrow morning, and if continuing to look good, then will hopefully plan for home tomorrow. Labs this evening ok - AST slightly elevated, will plan to repeat preeclampsia panel in AM. In my discussion with patient this evening, after our collective thinking was that her chronic hypertension diagnosis came at 9w into this when she was started on labetalol. She had discussed with OB that she had taken BP meds in prior , but in our discussion tonight, she revealed that she was prescribed BP meds outside of also. She states that she did not take them because she felt fine without them. I discussed with her the importance of close followup for BP upon discharge from hospital - will need to see PCP within 1 week of discharge to monitor BP and meds. She is agreeable to this. We discussed the concerns that can arise with elevated blood pressures, including preeclampsia evolving into eclampsia with seizures, also concern for stroke, brain damage, and blood vessel damage. She is aware of the importance of medication compliance and close followup. Results & Data ([facility]) Vital Signs (Past 12 Hours) Vital Signs Temp Pulse Pulse Resp BP BP Pulse Ox 01/05/21 20:22 79 98 01/05/21 20:17 85 99 01/05/21 20:12 75 98 01/05/21 20:07 81 98 01/05/21 20:02 76 99 01/05/21 19:57 75 97 01/05/21 19:52 75 97 01/05/21 19:27 81 98 01/05/21 19:22 83 98 01/05/21 19:17 95 H 99 01/05/21 19:15 36.8 C 79 16 140/86 01/05/21 19:12 75 97 01/05/21 19:07 80 99 01/05/21 19:04 68 140/86 01/05/21 19:02 80 99 01/05/21 18:57 79 99 01/05/21 18:52 79 98 01/05/21 18:47 80 98 01/05/21 18:45 20 01/05/21 18:42 80 98 01/05/21 18:37 86 99 01/05/21 18:34 75 20 144/83 H 01/05/21 18:32 80 99 01/05/21 18:27 86 99 01/05/21 18:22 87 99 01/05/21 18:17 91 H 99 01/05/21 18:12 84 99 01/05/21 18:07 73 98 01/05/21 18:05 68 155/90 H 01/05/21 18:02 72 99 01/05/21 17:57 80 99 01/05/21 17:52 79 98 01/05/21 17:47 77 98 01/05/21 17:46 20 01/05/21 17:42 73 98 01/05/21 17:37 72 98 01/05/21 17:35 73 20 157/93 H 01/05/21 17:32 88 98 01/05/21 17:27 80 98 01/05/21 17:22 65 97 01/05/21 17:17 65 97 01/05/21 17:12 66 97 01/05/21 17:07 65 97 01/05/21 17:02 69 98 01/05/21 16:58 68 151/91 H 01/05/21 16:57 66 98 01/05/21 16:52 88 99 01/05/21 16:47 79 20 98 01/05/21 16:43 69 20 144/85 H 01/05/21 16:42 71 98 01/05/21 16:37 86 98 01/05/21 16:32 72 98 01/05/21 16:28 80 154/93 H 01/05/21 16:27 81 98 01/05/21 16:22 73 98 01/05/21 16:17 76 99 01/05/21 16:13 71 156/91 H 01/05/21 16:12 78 99 01/05/21 16:07 74 98 01/05/21 16:02 68 97 01/05/21 15:58 73 157/90 H 01/05/21 15:57 71 96 01/05/21 15:52 70 96 01/05/21 15:47 70 96 01/05/21 15:46 37.1 C 20 01/05/21 15:43 76 152/91 H 01/05/21 15:42 88 98 01/05/21 15:35 83 98 01/05/21 15:30 77 97 01/05/21 15:28 71 145/91 H 01/05/21 15:25 69 96 01/05/21 15:20 71 97 01/05/21 15:15 75 97 01/05/21 15:13 70 149/91 H 01/05/21 15:10 77 97 01/05/21 15:05 70 98 01/05/21 15:00 80 98 01/05/21 14:58 68 146/88 H 01/05/21 14:55 73 98 01/05/21 14:50 77 99 01/05/21 14:45 86 20 99 01/05/21 14:43 77 146/87 H 01/05/21 14:40 77 99 01/05/21 14:35 73 98 01/05/21 14:30 78 98 01/05/21 14:28 81 141/80 H 01/05/21 14:25 80 98 01/05/21 14:20 86 99 01/05/21 14:15 72 98 01/05/21 14:13 75 20 157/95 H 01/05/21 14:10 73 98 01/05/21 14:05 84 98 01/05/21 13:58 78 165/100 H 97 01/05/21 13:53 73 98 01/05/21 13:48 68 97 01/05/21 13:45 20 01/05/21 13:43 79 20 156/93 H 98 01/05/21 13:38 77 97 01/05/21 13:33 72 97 01/05/21 13:28 79 158/90 H 96 01/05/21 13:23 67 97 01/05/21 13:18 69 96 01/05/21 13:13 89 156/89 H 97 01/05/21 13:08 70 97 01/05/21 13:03 70 96 01/05/21 12:58 83 16 149/85 H 97 01/05/21 12:53 79 97 01/05/21 12:48 71 97 01/05/21 12:45 16 01/05/21 12:43 77 159/90 H 97 01/05/21 12:38 72 97 01/05/21 12:33 72 97 01/05/21 12:28 82 151/85 H 98 01/05/21 12:23 87 98 01/05/21 12:18 94 H 98 01/05/21 12:13 36.8 C 85 20 157/89 H 98 01/05/21 12:08 74 97 01/05/21 12:03 86 99 01/05/21 11:58 81 151/88 H 98 01/05/21 11:53 80 98 01/05/21 11:48 81 98 01/05/21 11:45 20 01/05/21 11:43 81 145/85 H 98 01/05/21 11:38 84 98 01/05/21 11:33 89 98 01/05/21 11:28 86 151/89 H 98 01/05/21 11:23 82 98 01/05/21 11:18 87 97 01/05/21 11:13 88 143/85 H 98 01/05/21 11:08 90 99 01/05/21 11:03 84 99 01/05/21 10:58 90 138/78 98 01/05/21 10:53 82 20 97 01/05/21 10:48 72 96 01/05/21 10:43 86 150/84 H 97 01/05/21 10:38 74 96 01/05/21 10:33 75 96 01/05/21 10:28 81 140/80 97 01/05/21 10:23 78 96 01/05/21 10:18 97 H 99 01/05/21 10:13 86 137/83 97 01/05/21 10:08 76 96 01/05/21 10:03 89 97 01/05/21 09:58 88 132/72 97 01/05/21 09:56 95 H 93 01/05/21 09:53 85 97 01/05/21 09:48 79 97 01/05/21 09:45 20 01/05/21 09:43 84 20 133/75 97 01/05/21 09:38 85 97 01/05/21 09:33 92 H 98 01/05/21 09:28 91 H 130/69 98 01/05/21 09:23 88 98 01/05/21 09:18 96 H 98 01/05/21 09:13 87 20 137/75 97 01/05/21 08:45 20 01/05/21 08:39 97 H 99 01/05/21 08:38 85 20 137/83 01/05/21 08:34 95 H 98 01/05/21 08:29 92 H 98 PG Care Time/CCT Total # of Minutes Spent Total Time Spent with Patient: Total time spent is greater than 50% in coordination of care (as documented) at patient's floor/unit and/or counseling patient: Coding Level of Care Code None
[2021-01-05] MEDS: PRENATAL VITAMIN 1 TAB PO SCH (21:18)
[2021-01-06] MEDS: LABETALOL HCL 300 MG TAB PO SCH (06:05)
[2021-01-06 07:11] LABS: Hematocrit (blood only) 36.9 % (37-47); Hemoglobin 12.4 g/dL (12.0-16.0); Mean Corpuscular Hgb Conc 33.6 g/dL (32-36); Mean Corpuscular Volume 95.3 fL (80-100); Mean Platelet Volume 10.2 fL (7.4-10.4); Platelet Count 252 K/uL (130-400); RDW Coefficient of Variation 13.3 % (11.5-14.5); Red Blood Count 3.87 M/uL (4.2-5.4); White Blood Count 9.46 K/uL (4.8-10.8)
[2021-01-06] MEDS: ACETAMINOPHEN 325 MG TAB PO PRN (07:25)
[2021-01-06] MEDS: FERROUS SULFATE 325 MG TAB PO SCH (07:25)
[2021-01-06] MEDS: DOCUSATE SODIUM 100 MG CAP PO SCH (07:25)
[2021-01-06 07:37] LABS: Albumin Globulin Ratio 0.7 (0.9-2); Albumin Level 2.9 gm/dl (3.4-5.0); BUN Creatinine Ratio 8.7 (10-20); Bilirubin,Total 0.4 mg/dl (0.2-1); Calcium 7.7 mg/dl (8.5-10.1); Creatinine Clr Calc Pharmacy 129.7 ml/min; Est GFR (African American) 124.6 ml/min; Est GFR (Non-African American) 107.5 ml/min; Globulin 4.3 gm/dl (2.5-4.0); Potassium 3.8 mmol/L (3.5-5.1); Total Protein 7.2 gm/dl (6.4-8.2)
--- NOTE | 2021-01-06 07:56 | Obstetrical Progress Note ---
Date of Service January 06, 2021 Assessment & Plan (1) hypertension: PPD#4. Doing much better. Significant improvement in BPs with labetalol and procardia. Discussed with patient that she will need close followup - needs to see PCP this week. I have sent a task to our office to help with this scheduling. Rx sent to pharmacy, she is agreeable to take these. Reviewed s/s preeclampsia, if she develops these she is to call immediately. Reviewed discharge instructions. Subjective Ambulation: ambulating normally Voiding: no voiding problems Diet Tolerance:: regular diet Lochia:: Moderate Feeding Type:: breast feeding PPD#4 doing well. Stopped magnesium for seizure prophylaxis this morning. Is currently on labetalol 600mg TID and Procardia XL 30mg QD. She reports a slight headache this morning, rating this a 1 or 2 out of 10, behind her eye. States this is usually where she gets her headaches. Would like to take some tylenol, eat breakfast and see how she feels. She was instructed to let us know if this does not resolve with the above measures or if it worsens. Ambulating, eating/drinking, urinating well. Review of Systems All systems reviewed & are unremarkable except as noted in HPI & below Physical Exam Constitutional WD/WN, vitals as above no acute distress Respiratory normal respiratory effort Cardiovascular Rate/Rhythm: regular rate and regular rhythm Gastrointestinal (Abdomen) Inspection/Auscultation: abdomen normal to inspection; abdomen not distended Percussion/Palpation: abdomen soft Genitourinary OB Exam Abdomen: + fundal height Fundus: + firm; not tender Results & Data ([facility]) Vital Signs (Past 12 Hours) Vital Signs Temp Pulse Pulse Pulse Resp BP BP 01/06/21 07:14 36.6 C 70 18 137/84 01/06/21 06:41 75 130/81 01/06/21 06:07 81 139/88 01/06/21 06:00 81 18 01/06/21 05:19 76 01/06/21 05:15 18 01/06/21 05:14 68 01/06/21 05:09 80 01/06/21 05:07 70 151/85 H 01/06/21 05:06 65 164/90 H 01/06/21 05:04 69 01/06/21 05:00 36.8 C 74 18 151/85 H 01/06/21 04:59 67 01/06/21 04:54 68 01/06/21 04:49 69 01/06/21 04:44 65 01/06/21 04:39 73 01/06/21 04:34 73 01/06/21 04:33 77 01/06/21 04:29 74 01/06/21 04:27 79 01/06/21 04:24 67 01/06/21 04:20 72 01/06/21 04:19 74 01/06/21 04:15 76 01/06/21 04:14 73 01/06/21 04:09 66 01/06/21 04:04 62 01/06/21 04:00 18 01/06/21 03:59 61 01/06/21 03:54 62 01/06/21 03:49 62 01/06/21 03:44 59 L 01/06/21 03:39 67 01/06/21 03:34 74 01/06/21 03:27 75 01/06/21 03:22 73 01/06/21 03:17 77 01/06/21 03:12 70 01/06/21 03:07 70 01/06/21 03:02 70 01/06/21 03:01 80 140/85 01/06/21 03:00 36.7 C 76 16 140/85 01/06/21 02:57 69 01/06/21 02:52 69 01/06/21 02:47 68 01/06/21 02:42 68 01/06/21 02:37 67 01/06/21 02:32 68 01/06/21 02:27 65 01/06/21 02:22 66 01/06/21 02:17 69 01/06/21 02:12 77 01/06/21 02:07 89 01/06/21 02:02 98 H 01/06/21 02:00 18 01/06/21 01:57 64 01/06/21 01:52 69 01/06/21 01:47 68 01/06/21 01:42 62 01/06/21 01:40 71 01/06/21 01:37 66 01/06/21 01:32 70 01/06/21 01:27 68 01/06/21 01:26 70 01/06/21 01:22 69 01/06/21 01:17 66 06/26/21 01:12 63 01/06/21 01:07 62 01/06/21 01:05 16 01/06/21 01:02 62 01/06/21 00:57 64 01/06/21 00:52 63 01/06/21 00:47 76 01/06/21 00:42 74 01/06/21 00:37 69 01/06/21 00:32 69 01/06/21 00:27 67 01/06/21 00:22 68 01/06/21 00:17 68 01/06/21 00:12 83 01/06/21 00:07 75 01/06/21 00:03 71 141/93 H 01/06/21 00:02 74 01/06/21 00:00 18 01/05/21 23:57 85 01/05/21 23:49 73 01/05/21 23:44 77 01/05/21 23:39 76 01/05/21 23:34 71 01/05/21 23:29 71 01/05/21 23:24 80 01/05/21 23:22 16 01/05/21 23:19 70 01/05/21 23:14 68 01/05/21 23:09 73 01/05/21 23:04 73 01/05/21 23:00 36.8 C 67 16 145/90 H 01/05/21 22:59 72 145/90 H 01/05/21 22:29 92 H 01/05/21 22:28 74 152/93 H 01/05/21 22:27 75 161/92 H 01/05/21 22:24 69 01/05/21 22:19 84 01/05/21 22:14 68 01/05/21 22:09 77 01/05/21 22:04 81 01/05/21 22:00 18 01/05/21 21:59 86 01/05/21 21:54 93 H 01/05/21 21:44 79 01/05/21 21:39 78 01/05/21 21:34 74 01/05/21 21:29 84 16 01/05/21 21:22 72 01/05/21 21:17 94 H 01/05/21 21:09 79 01/05/21 21:07 84 01/05/21 21:04 84 01/05/21 20:59 83 01/05/21 20:54 78 01/05/21 20:49 76 01/05/21 20:44 87 01/05/21 20:39 82 01/05/21 20:34 77 01/05/21 20:29 90 01/05/21 20:22 79 01/05/21 20:17 85 01/05/21 20:12 75 01/05/21 20:07 81 01/05/21 20:02 76 01/05/21 20:00 16 01/05/21 19:57 75 01/05/21 19:52 75 BP Pulse Ox 01/06/21 07:14 98 01/06/21 06:41 01/06/21 06:07 01/06/21 06:00 139/88 01/06/21 05:19 97 01/06/21 05:15 01/06/21 05:14 97 01/06/21 05:09 98 01/06/21 05:07 01/06/21 05:06 01/06/21 05:04 97 01/06/21 05:00 98 01/06/21 04:59 97 01/06/21 04:54 97 01/06/21 04:49 96 01/06/21 04:44 97 01/06/21 04:39 97 01/06/21 04:34 95 01/06/21 04:33 93 01/06/21 04:29 96 01/06/21 04:27 93 01/06/21 04:24 95 01/06/21 04:20 92 01/06/21 04:19 97 01/06/21 04:15 92 01/06/21 04:14 95 01/06/21 04:09 95 01/06/21 04:04 96 01/06/21 04:00 01/06/21 03:59 96 01/06/21 03:54 97 01/06/21 03:49 96 01/06/21 03:44 97 01/06/21 03:39 98 01/06/21 03:34 98 01/06/21 03:27 97 01/06/21 03:22 98 01/06/21 03:17 97 01/06/21 03:12 98 01/06/21 03:07 98 01/06/21 03:02 99 01/06/21 03:01 01/06/21 03:00 99 01/06/21 02:57 97 01/06/21 02:52 97 01/06/21 02:47 97 01/06/21 02:42 98 01/06/21 02:37 98 01/06/21 02:32 98 01/06/21 02:27 99 01/06/21 02:22 99 01/06/21 02:17 99 01/06/21 02:12 99 01/06/21 02:07 97 01/06/21 02:02 98 01/06/21 02:00 01/06/21 01:57 96 01/06/21 01:52 97 01/06/21 01:47 95 01/06/21 01:42 96 01/06/21 01:40 94 01/06/21 01:37 94 01/06/21 01:32 98 01/06/21 01:27 97 01/06/21 01:26 93 01/06/21 01:22 97 01/06/21 01:17 97 01/06/21 01:12 96 01/06/21 01:07 96 01/06/21 01:05 01/06/21 01:02 96 01/06/21 00:57 97 01/06/21 00:52 96 01/06/21 00:47 96 01/06/21 00:42 97 01/06/21 00:37 97 01/06/21 00:32 98 01/06/21 00:27 98 01/06/21 00:22 98 01/06/21 00:17 97 01/06/21 00:12 98 01/06/21 00:07 99 01/06/21 00:03 01/06/21 00:02 99 01/06/21 00:00 01/05/21 23:57 98 01/05/21 23:49 98 01/05/21 23:44 98 01/05/21 23:39 98 01/05/21 23:34 97 01/05/21 23:29 98 01/05/21 23:24 98 01/05/21 23:22 01/05/21 23:19 97 01/05/21 23:14 98 01/05/21 23:09 97 01/05/21 23:04 97 01/05/21 23:00 96 01/05/21 22:59 97 01/05/21 22:29 98 01/05/21 22:28 01/05/21 22:27 01/05/21 22:24 96 01/05/21 22:19 98 01/05/21 22:14 95 01/05/21 22:09 98 01/05/21 22:04 99 01/05/21 22:00 01/05/21 21:59 98 01/05/21 21:54 98 01/05/21 21:44 98 01/05/21 21:39 98 01/05/21 21:34 98 01/05/21 21:29 98 01/05/21 21:22 98 01/05/21 21:17 97 01/05/21 21:09 97 01/05/21 21:07 70 L 01/05/21 21:04 98 01/05/21 20:59 98 01/05/21 20:54 97 01/05/21 20:49 97 01/05/21 20:44 99 01/05/21 20:39 98 01/05/21 20:34 100 01/05/21 20:29 97 01/05/21 20:22 98 01/05/21 20:17 99 01/05/21 20:12 98 01/05/21 20:07 98 01/05/21 20:02 99 01/05/21 20:00 01/05/21 19:57 97 01/05/21 19:52 97
[2021-01-06] MEDS: LACTATED RINGER'S 1,000 ML IV SCH (08:29)
[2021-01-06] MEDS: NIFEdipine EXTENDED REL 30 MG TABCR PO SCH (09:22)
--- NOTE | 2021-01-06 11:41 | Hospitalist Progress Note ---
Date of Service January 06, 2021 Assessment & Plan (1) Chronic hypertension affecting : Patient w/ long-standing HTN dating back to ~16yo. Off/on meds over the years but no consistent f/u for such. BP were high during the early part of the (PIH) leading to institution of labetalol. BPs were under acceptable control until late in the and in the days leading up to delivery was dx with pre-eclampsia. Since delivery her labetalol has been increased and procardia xl started. BPs are now reasonably controlled in the last 24 hours with the above 2 medications. Systolics 130s to 150s. Diastolics 80s and 90s. I believe her BPs will be even better at home. She does endorse an element of anxiety which may be making things modestly worse. We discussed BP checks at home, writing them down in notebook, DASH diet (handout given), and importance of PCP f/u. Further, discussed that since she developed HTN at a relatively young age would advise secondary w/u (sleep study, renal artery dopplers, renin/bertrand levels, etc). (2) HTN (hypertension): Long-standing for years. Then worsening of BPs during the (chronic HTN w/ superimposed PIH). see above. No end-organ symptoms/signs. (3) Severe pre-eclampsia: Completed mag infusion. Scant edema on exam. BPs improved. Labs acceptable. Defer management to OB. (4) Chronic migraine without aura or status migrainosus: Previously on Topamax but stopped this when she found out she was . Follow-up with neurology as an outpatient. Possible KATHERINE could be making this worse. (5) Snoring: Outpatient sleep study advised. (6) Elevated AST (SGOT): Scantly elevated. Already trending down today. Repeat as outpatient. Instructions added to d/c instructions. DASH handout. f/u PCP within 5 days if possible. OB f/u. From medical standpoint ok for d/c home. Admission and Anticipated Discharge Date Admission Date: January 01, 2021 Subjective patient resting comfortably during the visit. she was holding her daughter. uneventful night overnight. mild right-sided headache this am - now improved. she admits to feeling anxious about the blood pressure issue. she was dx at age 16 with HTN. took meds on/off for several years but then stopped them. has not had any regular PCP F/u in years. mother w/ HTN. we had lengthy discussion about BP checks at home, meds, PCP f/u, DASH diet, secondary causes of HTN w/u (since she was dx at young age), suspected KATHERINE and need for sleep study (and link to HTN), COVID vaccination. Review of Systems Respiratory: no cough, no dyspnea and no dyspnea on exertion Cardiovascular: no chest pain Gastrointestinal: no abdominal pain, no nausea and no vomiting Neurologic: + headache(s) (very mild, right eye ); no dizziness Physical Exam Constitutional: well developed and well nourished; no acute distress and no altered mental status ENMT: external ear and nose normal, oropharynx normal Neck: Thyroid: normal thyroid Respiratory: normal respiratory effort, lungs clear to auscultation Cardiovascular: Rate/Rhythm: regular rate and regular rhythm Heart Sounds: normal S1 and normal S2; no murmur Vessels: posterior tibial pulses present and dorsalis pedis pulses present; no JVD Extremities: + edema (trace b/l ) Gastrointestinal (Abdomen): normal bowel sounds, soft, nontender, no hepatosplenomegaly Psychiatric: A+Ox3, euthymic affect Results & Data Results & Data ([facility]) Vital Signs (Past 12 Hours) Vital Signs Temp Pulse Pulse Pulse Resp BP BP 01/06/21 11:39 71 150/94 H 01/06/21 10:36 63 18 149/93 H 01/06/21 10:31 69 18 148/93 H 01/06/21 09:19 80 133/76 01/06/21 08:15 75 18 130/82 01/06/21 07:14 36.6 C 70 18 137/84 01/06/21 06:41 75 130/81 01/06/21 06:07 81 139/88 01/06/21 06:00 81 18 01/06/21 05:19 76 01/06/21 05:15 18 01/06/21 05:14 68 01/06/21 05:09 80 01/06/21 05:07 70 151/85 H 01/06/21 05:06 65 164/90 H 01/06/21 05:04 69 01/06/21 05:00 36.8 C 74 18 151/85 H 01/06/21 04:59 67 01/06/21 04:54 68 01/06/21 04:49 69 01/06/21 04:44 65 01/06/21 04:39 73 01/06/21 04:34 73 01/06/21 04:33 77 01/06/21 04:29 74 01/06/21 04:27 79 01/06/21 04:24 67 01/06/21 04:20 72 01/06/21 04:19 74 01/06/21 04:15 76 01/06/21 04:14 73 01/06/21 04:09 66 01/06/21 04:04 62 01/06/21 04:00 18 01/06/21 03:59 61 01/06/21 03:54 62 01/06/21 03:49 62 01/06/21 03:44 59 L 01/06/21 03:39 67 01/06/21 03:34 74 01/06/21 03:27 75 01/06/21 03:22 73 01/06/21 03:17 77 01/06/21 03:12 70 01/06/21 03:07 70 01/06/21 03:02 70 01/06/21 03:01 80 140/85 01/06/21 03:00 36.7 C 76 16 140/85 01/06/21 02:57 69 01/06/21 02:52 69 01/06/21 02:47 68 01/06/21 02:42 68 01/06/21 02:37 67 01/06/21 02:32 68 01/06/21 02:27 65 01/06/21 02:22 66 01/06/21 02:17 69 01/06/21 02:12 77 01/06/21 02:07 89 01/06/21 02:02 98 H 01/06/21 02:00 18 01/06/21 01:57 64 01/06/21 01:52 69 01/06/21 01:47 68 01/06/21 01:42 62 01/06/21 01:40 71 01/06/21 01:37 66 01/06/21 01:32 70 01/06/21 01:27 68 01/06/21 01:26 70 01/06/21 01:22 69 01/06/21 01:17 66 01/06/21 01:12 63 01/06/21 01:07 62 01/06/21 01:05 16 01/06/21 01:02 62 01/06/21 00:57 64 01/06/21 00:52 63 01/06/21 00:47 76 01/06/21 00:42 74 01/06/21 00:37 69 01/06/21 00:32 69 01/06/21 00:27 67 01/06/21 00:22 68 01/06/21 00:17 68 01/06/21 00:12 83 01/06/21 00:07 75 01/06/21 00:03 71 141/93 H 01/06/21 00:02 74 01/06/21 00:00 18 01/05/21 23:57 85 01/05/21 23:49 73 01/05/21 23:44 77 BP Pulse Ox 01/06/21 11:39 01/06/21 10:36 01/06/21 10:31 01/06/21 09:19 01/06/21 08:15 01/06/21 07:14 98 01/06/21 06:41 01/06/21 06:07 01/06/21 06:00 139/88 01/06/21 05:19 97 01/06/21 05:15 01/06/21 05:14 97 01/06/21 05:09 98 01/06/21 05:07 01/06/21 05:06 01/06/21 05:04 97 01/06/21 05:00 98 01/06/21 04:59 97 01/06/21 04:54 97 01/06/21 04:49 96 01/06/21 04:44 97 01/06/21 04:39 97 01/06/21 04:34 95 01/06/21 04:33 93 01/06/21 04:29 96 01/06/21 04:27 93 01/06/21 04:24 95 01/06/21 04:20 92 01/06/21 04:19 97 01/06/21 04:15 92 01/06/21 04:14 95 01/06/21 04:09 95 01/06/21 04:04 96 01/06/21 04:00 01/06/21 03:59 96 01/06/21 03:54 97 01/06/21 03:49 96 01/06/21 03:44 97 01/06/21 03:39 98 01/06/21 03:34 98 01/06/21 03:27 97 01/06/21 03:22 98 01/06/21 03:17 97 01/06/21 03:12 98 01/06/21 03:07 98 01/06/21 03:02 99 01/06/21 03:01 01/06/21 03:00 99 01/06/21 02:57 97 01/06/21 02:52 97 01/06/21 02:47 97 01/06/21 02:42 98 01/06/21 02:37 98 01/06/21 02:32 98 01/06/21 02:27 99 01/06/21 02:22 99 01/06/21 02:17 99 01/06/21 02:12 99 01/06/21 02:07 97 01/06/21 02:02 98 01/06/21 02:00 01/06/21 01:57 96 01/06/21 01:52 97 01/06/21 01:47 95 01/06/21 01:42 96 01/06/21 01:40 94 01/06/21 01:37 94 01/06/21 01:32 98 01/06/21 01:27 97 01/06/21 01:26 93 01/06/21 01:22 97 01/06/21 01:17 97 01/06/21 01:12 96 01/06/21 01:07 96 01/06/21 01:05 01/06/21 01:02 96 01/06/21 00:57 97 01/06/21 00:52 96 01/06/21 00:47 96 01/06/21 00:42 97 01/06/21 00:37 97 01/06/21 00:32 98 01/06/21 00:27 98 01/06/21 00:22 98 01/06/21 00:17 97 01/06/21 00:12 98 01/06/21 00:07 99 01/06/21 00:03 01/06/21 00:02 99 01/06/21 00:00 01/05/21 23:57 98 01/05/21 23:49 98 01/05/21 23:44 98 Laboratory Results Laboratory Results - last 24 hr 01/05/21 01/05/21 01/06/21 18:26 18:26 06:55 WBC 11.18 H 9.46 RBC 3.64 L 3.87 L Hgb 11.8 L 12.4 Hct 34.7 L 36.9 L MCV 95.3 95.3 MCH 32.4 32.0 MCHC 34.0 33.6 RDW Std Deviation 46.3 46.0 RDW Coeff of Jose 13.4 13.3 Plt Count 220 252 MPV 10.6 H 10.2 Sodium 136 Potassium 3.8 Chloride 105 Carbon Dioxide 24 Anion Gap 8.0 BUN 7 Creatinine 0.71 Est Cr Clr Drug Dosing 138.8 Est GFR ( Amer) 135.3 Est GFR (Non-Af Amer) 116.7 BUN/Creatinine Ratio 9.1 L Glucose 126 H Calcium 8.3 L Total Bilirubin 0.3 AST 47 H ALT 47 Alkaline Phosphatase 113 Total Protein 7.0 Albumin 2.8 L Globulin 4.2 H Albumin/Globulin Ratio 0.7 L 01/06/21 06:55 WBC RBC Hgb Hct MCV MCH MCHC RDW Std Deviation RDW Coeff of Jose Plt Count MPV Sodium 136 Potassium 3.8 Chloride 105 Carbon Dioxide 27 Anion Gap 4.0 BUN 7 Creatinine 0.76 Est Cr Clr Drug Dosing 129.7 Est GFR ( Amer) 124.6 Est GFR (Non-Af Amer) 107.5 BUN/Creatinine Ratio 8.7 L Glucose 91 Calcium 7.7 L Total Bilirubin 0.4 AST 43 H ALT 53 Alkaline Phosphatase 109 Total Protein 7.2 Albumin 2.9 L Globulin 4.3 H Albumin/Globulin Ratio 0.7 L PG Care Time/CCT Total # of Minutes Spent Total Time Spent with Patient: Total time spent is greater than 50% in coordination of care (as documented) at patient's floor/unit and/or counseling patient: Coding Level of Care Code 42672 Subseq Hosp Care Lvl 3 Diagnoses Chronic hypertension affecting O10.919 HTN (hypertension) I10 Hypertension type: unspecified Severe pre-eclampsia O14.10 Trimester: unspecified trimester Chronic migraine without aura or status migrainosus G43.709 Intractability: not intractable Snoring R06.83 Elevated AST (SGOT) R74.01 (1) Chronic migraine without aura or status migrainosus Intractability: not intractable Qualified Code(s): G43.709 - Chronic migraine without aura, not intractable, without status migrainosus (2) Severe pre-eclampsia Trimester: unspecified trimester Qualified Code(s): O14.10 - Severe pre- eclampsia, unspecified trimester (3) HTN (hypertension) Hypertension type: unspecified Qualified Code(s): I10 - Essential (primary) hypertension
--- NOTE | 2021-01-06 12:49 | Communication Note ---
Date of Service: January 06, 2021 Called by nursing to review bps before d/c. Elevated one after at noon but then pt felt calmer and retake was better. Patient has no symptoms c urrently per nurse. Had GONZALES this am but that got better after am tylenol. Messaged Dr. Cummings about bps, and he too is ok with going home. Needs PCP followup next week. Patient was already made aware of that by Dr. Sidhu. Messaged nurse that ok to d/c.
== END 2021-01-06 14:15 | disposition home or self-care (01) | DRG 807 ==
LOC: OPB 11:10 → 4S1 11:11 → 4S2 01-02 20:31

== ENCOUNTER 2022-08-16 07:32 | Inpatient (IN) ==
--- NOTE | 2022-08-16 07:57 | History & Physical Report ---
Date of Service August 16, 2022 Assessment & Plan (1) Encounter for induction of labor: Plan: Plan for induction of labor at 38 weeks due to complicated by chronic HTN. Lindsey bulb placed last night. Plan to start Pitocin this morning. (2) Chronic hypertension affecting : Plan: - Has not been on any blood pressure medications throughout this . - Was on 81mg aspirin throughout as she also has a history of preeclampsia with prior . Last took at 2100 last night. - Mildly elevated blood pressure this morning; plan to check baseline CMP (3) Supervision of high-risk : Admission and Anticipated Discharge Date Admission Date: August 16, 2022 History of Present Illness Primary Care Provider: Tete Sparks PA-C Bianka is a 26 y/o female currently at 38 WGA with an DAVE 08/30/22 as determined by LMP who is here for induction. Her was complicated by chronic HTN, history of preeclampsia in a prior . 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 Had lindsey bulb placed last night. Fell out at 530 this morning. - contractions; + movement; - fluid loss; - bloody show External FHT and external uterine monitors used; Category 1 tracing; moderate FHT variability. Had regular appointments with OB. Labs: (01/18/2022) Blood type: O+ Antibody screen: Neg Rubella: Immune VDRL/RPR: Neg Gonorrhea: Neg Chlamydia: Neg HIV: Neg HbSAg: Neg GBS: neg Other screens: CF/SMA negative (09/23/17) cf/sma neg again 04/2020 panorama low risk 07/06/20 neg afp Allergies Allergy/AdvReac Type Severity Reaction Status Date / Time No Known Drug Allergies Allergy Unknown Verified 08/16/22 07:44 Home Medications Medication Instructions Recorded Confirmed Type prenat.vits,karina,[id number] 1 tab PO DAILY vitamin 01/07/22 08/16/22 History aspirin 81 mg chewable tablet 81 mg PO DAILY 08/15/22 08/16/22 History Vitamin C 1,000 mg PO DAILY 08/16/22 08/16/22 History Patient History Medical History 37 weeks gestation of DELIVERED MAR 2020 Abdominal pain Abdominal pain affecting Abnormal menstrual cycle Acute endometritis Appendicitis, acute (01/05/14) Appendicitis, acute Benign essential hypertension Chlamydia as a teenager Chronic hypertension in obstetric context in third trimester Chronic migraine without aura or status migrainosus Complex ovarian cyst Exposure to bloodborne pathogen Exposure to bloodborne pathogen Fatigue Female infertility Fever and chills Finger avulsion Gastritis Headache History of endometriosis HTN (hypertension) Intrauterine growth restriction (IUGR) affecting care of mother, third trimester, single gestation Missed Nausea Nausea Near syncope Ovarian cyst left Pelvic pain PID (acute pelvic inflammatory disease) Right upper quadrant pain Sinus congestion Supervision of normal intrauterine in multigravida Vaginitis Surgical History H/O laparoscopy H/O tooth extraction History of dilation and curettage S/P appendectomy Family History Mother Anemia Depression Endometriosis Diabetes Ovarian cyst Hypertension Hypothyroidism Grandmother (Maternal) Depression Hypertension Aunt Depression Ovarian cyst Denies family history of Ovarian cancer Breast cancer Colorectal cancer Social History Smoking Status: Never smoker Second Hand Exposure: No; Hx Alcohol Use: No Hx Substance Use: No Preferred Language: Upper Sorbian Communication Ability: Effective Glass Inspector Required: No Beliefs That Will Affect Care: None marital status: marital status details: Omar Dixon (34) [phone] Current Living Situation: Spouse and Family Current Living Situation Comment: lives with spouse, 2 children, dogs current occupational status: unemployed 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 Denies breast pain. Denies dysuria. Denies headache or changes in vision. Physical Exam Physical Exam: General: Alert, oriented. No acute distress. Cardiac: Regular rate and rhythm, no murmurs/rubs/gallops. Respiratory: Clear to auscultation bilaterally a/p, no wheezes/rales/rhonchi. No increased work of breathing. Symmetrical chest rise. No respiratory distress. Abdomen: Gravid; + FHTs Pelvic: 3cm; 50% effaced; High Lower Extremities: No lower extremity edema or swelling. No deep calf pain. Sara's negative bilaterally Results & Data ([facility]) Vital Signs (Past 12 Hours) Vital Signs Pulse BP 08/16/22 07:39 103 H 141/85 H Supervising Physician Co-Signing Physician Notes Resident Physician Supervision Note: I interviewed and examined the patient. Discussed with Dr. Moulton and agree with findings and plan as documented in the note. Any exceptions or clarifications are listed here: Patient is at 38 weeks with chtn for induction. bps have been controlled. Borderline today but no s/s pet. Fetus category one. hx of two 5# babies, on and one 37 weeks. cephalic by ultrasound. Lindsey out, cx favorable. Plan pitocin, arom as indicated, epidural on demand, anticipate . Monitor bps. Documented By: Elena Camara MD, FACOG Resident Activity Tracking Resident Involvement: Resident Care Provided Care Provided: OB Delivery
[2022-08-16] MEDS ORDERED: OXYTOCIN 30 UNITS/500 ML BAG IV PRN ×2 (08:07)
[2022-08-16] MEDS ORDERED: LIDOCAINE 1% LOCAL 20 ML VIAL INFIL PRN (08:07)
[2022-08-16] MEDS: LACTATED RINGER'S 1,000 ML IV PRN ×3 (08:45→20:38)
[2022-08-16 09:33] LABS: Hematocrit (blood only) 36.2 % (37.0-47.0); Hemoglobin 12.4 g/dl (12.0-16.0); Mean Corpuscular Hemoglobin 31.6 pg (25.0-34.0); Mean Corpuscular Hgb Conc 34.3 g/dL (32.0-36.0); Mean Corpuscular Volume 92.1 fL (80.0-100.0); Mean Platelet Volume 10.8 fL (9.4-12.4); Platelet Count 181 K/uL (130-400); RDW Coefficient of Variation 13.4 % (11.5-14.5); RDW Standard Deviation 45.2 fL (36.4-46.3); Red Blood Count 3.93 M/uL (4.20-5.40); White Blood Count 10.71 K/ul (4.8-10.8)
[2022-08-16 11:14] LABS: Albumin Globulin Ratio 1.1 (0.9-2); Albumin Level 3.3 gm/dl (3.4-5.0); BUN Creatinine Ratio 15.3 (10-20); Bilirubin,Total 0.4 mg/dl (0.2-1.0); Calcium 9.1 mg/dl (8.5-10.1); Creatinine Clr Calc Pharmacy 172.8 ml/min; Est GFR (African American) 144.6 ml/min; Est GFR (Non-African American) 124.7 ml/min; Globulin 3.1 gm/dl (2.5-4.0); Potassium 3.5 mmol/L (3.5-5.1); Total Protein 6.4 gm/dl (6.0-8.3)
[2022-08-16] MEDS ORDERED: ACETAMINOPHEN 325 MG TAB PO ONE (16:00)
[2022-08-16] MEDS ORDERED: SODIUM CHLORIDE 0.9% INJ 10 ML VIAL ONE ×2 (16:05→20:06)
[2022-08-16] MEDS ORDERED: fentaNYL citrate 100 MCG/2 ML VIAL ONE ×2 (16:05→20:06)
[2022-08-16] MEDS ORDERED: LIDOCAINE 2%/EPINEPHRINE 1:200,000 20 ML SDV ONE (16:05)
[2022-08-16] MEDS ORDERED: BUPIVACAINE 0.25% 30 ML VIAL ONE ×2 (16:05→20:06)
[2022-08-16] MEDS ORDERED: ePHEDrine sulfate 50 MG/ML AMP ONE (16:05)
[2022-08-16] MEDS ORDERED: fentaNYL 2MCG/ML ROPIVACAINE 1.25MG/ML 100 ML BAG EPI ONE (16:06)
[2022-08-16] MEDS ORDERED: NALOXONE HCL 0.4 MG/1 ML VIAL/CARP IV PRN (16:25)
[2022-08-16] MEDS ORDERED: fentaNYL 2MCG/ML ROPIVACAINE 1.25MG/ML 100 ML BAG EPI PRN (16:25)
[2022-08-16] MEDS ORDERED: ePHEDrine sulfate 50 MG/ML AMP IV PRN (16:25)
[2022-08-16] MEDS ORDERED: diphenhydrAMINE 50 MG/ML VIAL IV PRN (16:25)
[2022-08-16] MEDS ORDERED: NALOXONE HCL 1 MG in SODIUM CHLORIDE 0.9% 1000ML 1,000 ML IV PRN (16:25)
[2022-08-16] MEDS ORDERED: NALBUPHINE HCL INJ 10 MG/ML AMP IV PRN (16:25)
--- NOTE | 2022-08-16 16:25 | Anesthesiology Consultation ---
Date of Service August 16, 2022 Assessment & Plan (1) Encounter for pre-operative examination: Chart Review Chart Review: Patient NOT seen in Pre Admission Testing and Acceptable Risk for Labor Epidural Consults Requested none History Height/Weight Height: 5 ft 9 in Weight: 93.44 kg Allergies Allergy/AdvReac Type Severity Reaction Status Date / Time No Known Drug Allergies Allergy Unknown Verified 08/16/22 07:44 Medications Home Medications Medication Instructions Recorded Confirmed Last Taken prenat.vits,karina,[id number] 1 tab PO DAILY vitamin 01/07/22 08/16/22 08/15/22 20:00 aspirin 81 mg chewable tablet 81 mg PO DAILY 08/15/22 08/16/22 08/15/22 20:00 Vitamin C 1,000 mg PO DAILY 08/16/22 08/16/22 08/14/22 20:00 Active Medications Generic Name Dose Route Start Last Admin Trade Name Freq PRN Reason Stop Dose Admin Oxytocin 30 units in 500 mls @ 19 mls/hr 08/16/22 08:07 08/16/22 13:45 Pitocin IV 08/18/22 08:06 1.14 units/hr .Q24H PRN 19 mls/hr Labor Induction/Augmentation Titration Protocol 1.14 UNITS/HR Lactated Ringer's 1,000 mls @ 125 mls/hr 08/16/22 08:07 08/16/22 12:57 Lr IV 08/18/22 08:06 125 mls/hr .Q8H PRN Administration L&D Protocol Protocol Past Medical History Medical History 37 weeks gestation of DELIVERED MAR 2018 Abdominal pain Abdominal pain affecting Abnormal menstrual cycle Acute endometritis Appendicitis, acute (01/05/14) Appendicitis, acute Benign essential hypertension Chlamydia as a teenager Chronic hypertension in obstetric context in third trimester Chronic migraine without aura or status migrainosus Complex ovarian cyst Exposure to bloodborne pathogen Exposure to bloodborne pathogen Fatigue Female infertility Fever and chills Finger avulsion Gastritis Headache History of endometriosis HTN (hypertension) Intrauterine growth restriction (IUGR) affecting care of mother, third trimester, single gestation Missed Nausea Nausea Near syncope Ovarian cyst left Pelvic pain PID (acute pelvic inflammatory disease) Right upper quadrant pain Sinus congestion Supervision of normal intrauterine in multigravida Vaginitis Past Family History Family History Mother Anemia Depression Endometriosis Diabetes Ovarian cyst Hypertension Hypothyroidism Grandmother (Maternal) Depression Hypertension Aunt Depression Ovarian cyst Denies family history of Ovarian cancer Breast cancer Colorectal cancer Past Surgical History Surgical History H/O laparoscopy H/O tooth extraction History of dilation and curettage S/P appendectomy Social History Smoking Status: Never smoker Hx Alcohol Use: No Hx Substance Use: No substance use type: does not use Physical Exam Vital Signs Last Vital Signs Temp 98.4 F 08/16/22 16:20 Pulse 88 08/16/22 16:21 Resp 18 08/16/22 16:20 BP 140/81 08/16/22 16:21 Testing Laboratory Results 08/16/22 08:43 08/16/22 08:43
[2022-08-16] MEDS ORDERED: NURSING L&D Epidural Breakthrough Pain Update ONE (19:46)
[2022-08-16] MEDS ORDERED: ONDANSETRON INJ 2 MG/ML 2 ML VIAL IV PRN (21:14)
[2022-08-16] MEDS ORDERED: ONDANSETRON INJ 2 MG/ML 2 ML VIAL ONE (21:16)
--- NOTE | 2022-08-16 21:56 | Delivery Summary ---
Vaginal Delivery Summary Date of Service August 16, 2022 Vaginal Delivery Summary DIAGNOSES: 1. Rios intrauterine at 38w0d gestation. 2. Induction of labor due to chronic hypertension. 3. Group B Streptococcus Neg. PROCEDURE: Spontaneous vaginal delivery without laceration. SURGEON: Viry Willingham MD. ODD JOB LABORER: None. ESTIMATED BLOOD LOSS: 250 mL. COMPLICATIONS: None. PLACENTA: Spontaneous and intact with a 3-vessel cord. DISPOSITION: Stable to labor and delivery. DESCRIPTION: The patient pushed well and brought the head to in DOP position. The infant's head was allowed to deliver with contraction force and no further active pushing, with the perineum protected during this time. There was no nuchal cord. The right shoulder was anterior. The shoulders and body delivered without any difficulty, and the was placed on the maternal abdomen. It was vigorous and moving all extremities, and making respiratory efforts. The cord was doubly clamped by the MD and then cut by the FOB. The placenta delivered spontaneously and was noted to be intact and with a 3VC. The cervix, vagina and perineum were examined and were found to be without defect requiring repair. The fundus was firm and lochia minimal immediately after delivery. [facility] [place] Vaginal Delivery Codes: 06616 global code for the antepartum, delivery, and post-
[2022-08-16] MEDS ORDERED: ACETAMINOPHEN 325 MG TAB ONE (22:09)
[2022-08-16] MEDS ORDERED: HYDROCORTISONE ACETATE 25 MG SUPP PR PRN (22:25)
[2022-08-16] MEDS ORDERED: BENZOCAINE 20% AER SPR 82.5 GM CAN EXT PRN (22:25)
[2022-08-16] MEDS ORDERED: IBUPROFEN 600 MG TAB PO PRN (22:25)
[2022-08-16] MEDS ORDERED: oxyCODONE/ACETAMINOPHEN 5mg/325mg TAB PO PRN (22:25)
[2022-08-16] MEDS ORDERED: ACETAMINOPHEN 325 MG TAB PO PRN (22:25)
[2022-08-16] MEDS ORDERED: DIPHTHERIA/TETANUS/PERTUSSIS 0.5mL SYR/VIAL (Age 7+yrs) IM ONE (22:25)
--- NOTE | 2022-08-17 05:34 | Obstetrical Progress Note ---
Date of Service <Danyell Moulton - Last Filed: 08/17/22 06:29> August 17, 2022 Assessment & Plan <Danyell Moulton - Last Filed: 08/17/22 06:29> (1) Status post vaginal delivery: continue OOB, ambulation, diet as tolerated (2) Chronic hypertension affecting : - Has not been on any blood pressure medications throughout this . - Blood pressures well controlled post ; continue to monitor <Viry Willingham MD - Last Filed: 08/17/22 07:52> (1) Status post vaginal delivery: (2) Chronic hypertension affecting : Subjective <Danyell Moulton - Last Filed: 08/17/22 06:29> Bianka is a 26 y/o female who is now PPD # 1 following vaginal delivery at 38 weeks. Reports feeling well overall this morning. Mild abdominal cramping, pain well managed on analgesics. Voiding. Tolerating meals overnight and able to ambulate some. Some persistent lochia with some improvement this morning. Bottle feeding. Review of Systems Denies fever, chills, sweats Denies shortness of breath, difficulty breathing, chest pain, palpitations, chest pressure. Denies breast pain. Denies dysuria. Denies headache or changes in vision. Physical Exam <Danyell Moulton - Last Filed: 08/17/22 06:29> General: Alert, oriented. No acute distress. Cardiac: Regular rate and rhythm, no murmurs/rubs/gallops. Respiratory: Clear to auscultation bilaterally a/p, no wheezes/rales/rhonchi. No increased work of breathing. Symmetrical chest rise. No respiratory distress. Abdomen: Soft, nontender, nondistended. Bowel sounds present. Uterus: Uterine fundus firm, palpable 2 cm below umbilicus. Lower Extremities: No lower extremity edema or swelling. No deep calf pain. Sara's negative bilaterally. Results & Data ([facility]) <Danyell Moulton - Last Filed: 08/17/22 06:29> Vital Signs (Past 12 Hours) Vital Signs Temp Pulse Pulse Resp BP BP Pulse Ox 08/17/22 04:25 36.5 C 77 16 130/84 08/17/22 00:40 08/17/22 00:40 36.6 C 72 18 124/72 08/17/22 00:01 87 140/70 08/16/22 23:46 80 08/16/22 23:46 135/66 08/16/22 23:31 75 08/16/22 23:31 131/61 08/16/22 23:16 68 08/16/22 23:16 140/65 08/16/22 23:01 83 08/16/22 23:01 144/89 H 08/16/22 22:46 86 08/16/22 22:46 145/79 H 08/16/22 22:31 87 08/16/22 22:31 134/74 08/16/22 22:18 89 08/16/22 22:18 134/75 08/16/22 22:01 92 H 08/16/22 22:01 147/81 H 08/16/22 21:59 100 08/16/22 21:59 88 08/16/22 21:54 98 08/16/22 21:54 99 H 08/16/22 21:49 99 08/16/22 21:49 116 H 08/16/22 21:45 87 L 08/16/22 21:45 110 H 08/16/22 21:44 100 08/16/22 21:44 88 08/16/22 21:39 100 08/16/22 21:39 95 H 08/16/22 21:38 96 H 08/16/22 21:38 138/73 08/16/22 21:34 98 08/16/22 21:34 95 H 08/16/22 21:29 97 08/16/22 21:29 90 08/16/22 21:24 100 08/16/22 21:24 86 08/16/22 21:22 83 08/16/22 21:22 141/79 H 08/16/22 21:19 100 08/16/22 21:19 93 H 08/16/22 21:14 99 08/16/22 21:14 94 H 08/16/22 21:09 99 08/16/22 21:09 81 08/16/22 21:07 89 08/16/22 21:07 36.9 C 18 140/79 08/16/22 21:04 98 08/16/22 21:04 87 08/16/22 20:59 98 08/16/22 20:59 79 08/16/22 20:54 100 08/16/22 20:54 94 H 08/16/22 20:53 86 08/16/22 20:53 133/79 08/16/22 20:49 99 08/16/22 20:49 83 08/16/22 20:44 97 08/16/22 20:44 84 08/16/22 20:39 95 08/16/22 20:39 89 08/16/22 20:37 92 H 08/16/22 20:37 146/82 H 08/16/22 20:34 96 08/16/22 20:34 91 H 08/16/22 20:29 97 08/16/22 20:29 101 H 08/16/22 20:24 95 08/16/22 20:24 90 08/16/22 20:24 93 08/16/22 20:24 91 H 08/16/22 20:22 90 08/16/22 20:22 142/77 H 08/16/22 20:19 98 08/16/22 20:19 95 H 08/16/22 20:20 88 08/16/22 20:20 138/76 08/16/22 20:18 86 08/16/22 20:18 151/85 H 08/16/22 20:16 93 H 08/16/22 20:16 149/86 H 08/16/22 20:14 99 08/16/22 20:14 101 H 08/16/22 20:14 96 H 08/16/22 20:14 151/93 H 08/16/22 20:12 91 H 08/16/22 20:12 149/93 H 08/16/22 20:09 99 08/16/22 20:09 118 H 08/16/22 20:04 98 08/16/22 20:04 93 H 08/16/22 19:59 100 08/16/22 19:59 100 H 08/16/22 19:59 140/89 08/16/22 19:54 98 08/16/22 19:54 101 H 08/16/22 19:49 100 08/16/22 19:49 93 H 08/16/22 19:44 100 08/16/22 19:44 92 H 08/16/22 19:39 100 08/16/22 19:39 105 H 08/16/22 19:34 99 08/16/22 19:34 89 08/16/22 19:29 100 08/16/22 19:29 91 H 08/16/22 19:29 140/89 08/16/22 19:24 100 08/16/22 19:24 82 08/16/22 19:19 97 08/16/22 19:19 99 H 08/16/22 19:14 99 08/16/22 19:14 87 08/16/22 19:14 83 08/16/22 19:14 143/81 H 08/16/22 19:09 99 08/16/22 19:09 89 08/16/22 19:04 99 08/16/22 19:04 77 08/16/22 18:59 100 08/16/22 18:59 86 08/16/22 19:00 86 08/16/22 19:00 137/81 08/16/22 18:55 18 08/16/22 18:55 36.5 C 18 08/16/22 18:54 99 08/16/22 18:54 86 08/16/22 18:49 99 08/16/22 18:49 88 08/16/22 18:44 100 08/16/22 18:44 88 08/16/22 18:44 74 08/16/22 18:44 135/69 08/16/22 18:39 99 08/16/22 18:39 78 08/16/22 18:34 100 08/16/22 18:34 74 08/16/22 18:32 18 08/16/22 18:32 36.6 C 18 08/16/22 18:29 100 08/16/22 18:29 76 08/16/22 18:29 76 08/16/22 18:29 138/80 08/16/22 18:24 99 08/16/22 18:24 73 08/16/22 18:19 100 08/16/22 18:19 78 08/16/22 18:14 98 08/16/22 18:14 82 08/16/22 18:14 132/74 08/16/22 18:09 99 08/16/22 18:09 74 08/16/22 18:04 97 08/16/22 18:04 71 08/16/22 17:59 99 08/16/22 17:59 71 08/16/22 18:00 70 08/16/22 18:00 131/75 08/16/22 17:54 98 08/16/22 17:54 79 08/16/22 17:49 97 08/16/22 17:49 76 08/16/22 17:44 99 08/16/22 17:44 82 08/16/22 17:44 135/66 08/16/22 17:39 99 08/16/22 17:39 76 08/16/22 17:34 100 08/16/22 17:34 83 O2 Del Method 08/17/22 04:25 Room Air 08/17/22 00:40 Room Air 08/17/22 00:40 Room Air 08/17/22 00:01 08/16/22 23:46 08/16/22 23:46 08/16/22 23:31 08/16/22 23:31 08/16/22 23:16 08/16/22 23:16 08/16/22 23:01 08/16/22 23:01 08/16/22 22:46 08/16/22 22:46 08/16/22 22:31 08/16/22 22:31 08/16/22 22:18 08/16/22 22:18 08/16/22 22:01 08/16/22 22:01 08/16/22 21:59 08/16/22 21:59 08/16/22 21:54 08/16/22 21:54 08/16/22 21:49 08/16/22 21:49 08/16/22 21:45 08/16/22 21:45 08/16/22 21:44 08/16/22 21:44 08/16/22 21:39 08/16/22 21:39 08/16/22 21:38 08/16/22 21:38 08/16/22 21:34 08/16/22 21:34 08/16/22 21:29 08/16/22 21:29 08/16/22 21:24 08/16/22 21:24 08/16/22 21:22 08/16/22 21:22 08/16/22 21:19 08/16/22 21:19 08/16/22 21:14 08/16/22 21:14 08/16/22 21:09 08/16/22 21:09 08/16/22 21:07 08/16/22 21:07 08/16/22 21:04 08/16/22 21:04 08/16/22 20:59 08/16/22 20:59 08/16/22 20:54 08/16/22 20:54 08/16/22 20:53 08/16/22 20:53 08/16/22 20:49 08/16/22 20:49 08/16/22 20:44 08/16/22 20:44 08/16/22 20:39 08/16/22 20:39 08/16/22 20:37 08/16/22 20:37 08/16/22 20:34 08/16/22 20:34 08/16/22 20:29 08/16/22 20:29 08/16/22 20:24 08/16/22 20:24 08/16/22 20:24 08/16/22 20:24 08/16/22 20:22 08/16/22 20:22 08/16/22 20:19 08/16/22 20:19 08/16/22 20:20 08/16/22 20:20 08/16/22 20:18 08/16/22 20:18 08/16/22 20:16 08/16/22 20:16 08/16/22 20:14 08/16/22 20:14 08/16/22 20:14 08/16/22 20:14 08/16/22 20:12 08/16/22 20:12 08/16/22 20:09 08/16/22 20:09 08/16/22 20:04 08/16/22 20:04 08/16/22 19:59 08/16/22 19:59 08/16/22 19:59 08/16/22 19:54 08/16/22 19:54 08/16/22 19:49 08/16/22 19:49 08/16/22 19:44 08/16/22 19:44 08/16/22 19:39 08/16/22 19:39 08/16/22 19:34 08/16/22 19:34 08/16/22 19:29 08/16/22 19:29 08/16/22 19:29 08/16/22 19:24 08/16/22 19:24 08/16/22 19:19 08/16/22 19:19 08/16/22 19:14 08/16/22 19:14 08/16/22 19:14 08/16/22 19:14 08/16/22 19:09 08/16/22 19:09 08/16/22 19:04 08/16/22 19:04 08/16/22 18:59 08/16/22 18:59 08/16/22 19:00 08/16/22 19:00 08/16/22 18:55 08/16/22 18:55 08/16/22 18:54 08/16/22 18:54 08/16/22 18:49 08/16/22 18:49 08/16/22 18:44 08/16/22 18:44 08/16/22 18:44 08/16/22 18:44 08/16/22 18:39 08/16/22 18:39 08/16/22 18:34 08/16/22 18:34 08/16/22 18:32 08/16/22 18:32 08/16/22 18:29 08/16/22 18:29 08/16/22 18:29 08/16/22 18:29 08/16/22 18:24 08/16/22 18:24 08/16/22 18:19 08/16/22 18:19 08/16/22 18:14 08/16/22 18:14 08/16/22 18:14 08/16/22 18:09 08/16/22 18:09 08/16/22 18:04 08/16/22 18:04 08/16/22 17:59 08/16/22 17:59 08/16/22 18:00 08/16/22 18:00 08/16/22 17:54 08/16/22 17:54 08/16/22 17:49 08/16/22 17:49 08/16/22 17:44 08/16/22 17:44 08/16/22 17:44 08/16/22 17:39 08/16/22 17:39 08/16/22 17:34 08/16/22 17:34 <Viry Willingham MD - Last Filed: 08/17/22 07:52> Laboratory Results Laboratory Results - last 24 hr 08/16/22 08/16/22 08/17/22 08:43 08:43 06:11 WBC 10.71 13.05 H RBC 3.93 L 3.73 L Hgb 12.4 11.9 L Hct 36.2 L 35.0 L MCV 92.1 93.8 MCH 31.6 31.9 MCHC 34.3 34.0 RDW Std Deviation 45.2 46.4 H RDW Coeff of Jose 13.4 13.7 Plt Count 181 164 MPV 10.8 10.9 Sodium 137 Potassium 3.5 Chloride 107 Carbon Dioxide 19 L Anion Gap 11 BUN 9 Creatinine 0.59 L Est Cr Clr Drug Dosing 172.8 Est GFR ( Amer) 144.6 Est GFR (Non-Af Amer) 124.7 BUN/Creatinine Ratio 15.3 Glucose 102 H Calcium 9.1 Total Bilirubin 0.4 AST 14 ALT 10 Alkaline Phosphatase 157 H Total Protein 6.4 Albumin 3.3 L Globulin 3.1 Albumin/Globulin Ratio 1.1 <Viry Willingham MD - Last Filed: 08/17/22 07:52> Co-Signing Physician Notes Resident Physician Supervision Note: I interviewed and examined the patient. Discussed with Dr. Moulton and agree with findings and plan as documented in the note. Any exceptions or clarifications are listed here: [ ] Documented By: Viry Willingham MD, FACOG Resident Activity Tracking <Danyell Moulton DO - Last Filed: 08/17/22 06:29> Resident Involvement: Resident Care Provided Care Provided: OB Delivery (Post )
[2022-08-17 06:24] LABS: Hemoglobin 11.9 g/dl (12.0-16.0); Mean Corpuscular Hemoglobin 31.9 pg (25.0-34.0); Mean Corpuscular Volume 93.8 fL (80.0-100.0); Mean Platelet Volume 10.9 fL (9.4-12.4); Platelet Count 164 K/uL (130-400); RDW Coefficient of Variation 13.7 % (11.5-14.5); RDW Standard Deviation 46.4 fL (36.4-46.3); Red Blood Count 3.73 M/uL (4.20-5.40); White Blood Count 13.05 K/ul (4.8-10.8)
[2022-08-17] MEDS ORDERED: PRENATAL VITAMIN 1 TAB PO SCH (08:00)
[2022-08-17] MEDS: DOCUSATE SODIUM 100 MG CAP PO SCH ×2 (08:31→20:24)
--- NOTE | 2022-08-17 10:06 | Anesthesia Procedure Note ---
Date of Service August 17, 2022 Anesthesia Post Epidural Note Vital Signs Vital Signs: Temp Pulse Resp BP Pulse Ox O2 Del Method 36.7 C 78 18 134/87 99 08/17/22 08:15 08/17/22 08:15 08/17/22 08:15 08/17/22 08:15 08/17/22 08:15 08/17/22 08:15 Pain Intensity Lower Abdomen: Pain Intensity: 8 Notes Mental Status: alert / awake / arousable and participated in evaluation Nausea / Vomiting: adequately controlled Pain: adequately controlled Airway Patency, RR, SpO2: stable & adequate BP & HR: stable & adequate Hydration State: stable & adequate Neuraxial Anesthesia: was administered and sensory block is resolving Anesthetic Complications: no major complications apparent Epidural: Removed without complications and With tip intact
[2022-08-17] MEDS ORDERED: bisacodyL 5 MG TABEC PO SCH (20:00)
[2022-08-18] MEDS ORDERED: bisacodyL 10 MG SUPP PR PRN (22:25)
== END 2022-08-17 23:06 | disposition home or self-care (01) | DRG 807 ==
LOC: 4S1 07:32 → 4E2 08-17 00:31

== ENCOUNTER 2022-08-24 20:17 | Inpatient (IN) ==
[2022-08-24] MEDS ORDERED: ONDANSETRON INJ 2 MG/ML 2 ML VIAL IV STA (20:46)
--- NOTE | 2022-08-24 20:55 | Emergency Department Note ---
Impression & Plan Hypertension, Pre-eclampsia in period ED Provider Note INFORMANT: Patient ED PROVIDER(S): Chintan Al DO CHIEF COMPLAINT: Hypertension and headache PLAN: Disposition: Home Condition: Good Outpatient prescription management: none Referral: I spoke with Dr. Reed about the patient MEDICAL DECISION MAKING: This is a 26-year-old female who presents to the ED with a chief complaint of a headache and elevated blood pressure. The patient states that she is 8 days . She states that she has a previous history of hypertension but she also has a history of preeclampsia during . She has been on labetalol in the past for this. The patient states that today she was feeling a little nauseated and dizzy and took her blood pressure and it was 187/107. She came to the ED for evaluation because of her symptoms. She states that ibuprofen helps her headache. Her headache is only minimal at this time. She last took ibuprofen at 4 PM. The patient reports a little nausea. No other specific complaints this time. Her blood pressure here is 169/117. Afebrile. Exam was unremarkable. She had no distress on my exam. DIRECTOR OF SCIENTIFIC RESEARCH note from 01/07/2022 shows chronic hypertension affecting . She has also had eclampsia during . Her CBC was normal. No anemia, thrombocytopenia or leukocytosis. The chemistry panel was unremarkable. Uric acid was negative. Kidney function was normal. No electrolyte abnormality. Troponin was negative. LFTs are normal. No protein in the urine. The patient was treated with IV hydralazine here. She was also given some IV Zofran and some IV fluids. I did speak with Dr. Reed about the patient. He saw the patient in the ED and will admit the patient for further evaluation. Triage Nursing notes reviewed. Vital Signs: reviewed Prior /Outside records reviewed: Previous obstetric note from 01/05/2021 shows Severe preeclampsia Differential diagnosis: Preeclampsia, hypertension, help syndrome, other Diagnostics, as interpreted by me: 12 lead ECG: Normal sinus rhythm rate around 70. ST elevation. No PVCs. Normal QTc Cardiac Monitoring ordered: Normal sinus rhythm in the 60-70 range. Medical decision rules: none Imaging studies: Procedures: none. Critical care: none. HPI: See MDM above. PAST MEDICAL HISTORY: See Below PAST SURGICAL HISTORY: See Below SOCIAL HISTORY: See Below HOME MEDICATIONS: See Below ALLERGIES: See Below VITALS: See Below PHYSICAL EXAMINATION: CONSTITUTIONAL/VITAL SIGNS: Reviewed GENERAL: Non-toxic in appearance. INTEGUMENTARY: Warm, dry, and [place]. HEAD: Normocephalic. EYES: without scleral icterus. ENT/OROPHARYNX: clear and moist. RESPIRATORY: No increased work of breathing. Lungs clear. CARDIOVASCULAR: Regular rate. Regular rhythm. GI/ABDOMEN: Soft and nontender. . EXTREMITIES: Normal NEUROLOGICAL: Intact without focal deficits. PSYCHIATRIC: Normal affect. MUSCULOSKELETAL: Normal. TRIAGE NURSING DOCUMENTATION REVIEWED. Past Med/Surg History Medical History 37 weeks gestation of DELIVERED MAR 2018 Abdominal pain Abdominal pain affecting Abnormal menstrual cycle Acute endometritis Appendicitis, acute (01/05/14) Appendicitis, acute Benign essential hypertension Chlamydia as a teenager Chronic hypertension in obstetric context in third trimester Chronic migraine without aura or status migrainosus Complex ovarian cyst Exposure to bloodborne pathogen Exposure to bloodborne pathogen Fatigue Female infertility Fever and chills Finger avulsion Gastritis Headache History of endometriosis HTN (hypertension) Intrauterine growth restriction (IUGR) affecting care of mother, third trimester, single gestation Missed Nausea Nausea Near syncope Ovarian cyst left Pelvic pain PID (acute pelvic inflammatory disease) Right upper quadrant pain Sinus congestion Supervision of normal intrauterine in multigravida Vaginitis Surgical History H/O laparoscopy H/O tooth extraction History of dilation and curettage S/P appendectomy Family History Mother Anemia Depression Endometriosis Diabetes Ovarian cyst Hypertension Hypothyroidism Grandmother (Maternal) Depression Hypertension Aunt Depression Ovarian cyst Denies family history of Ovarian cancer Breast cancer Colorectal cancer Social History Smoking Status: Never smoker Second Hand Exposure: No; Hx Alcohol Use: No Hx Substance Use: No Preferred Language: [place]er Communication Ability: Effective 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: No Beliefs That Will Affect Care: None marital status: marital status details: Omar Dixon (34) [phone] Current Living Situation: Spouse and Family Current Living Situation Comment: lives with spouse, 2 children, dogs current occupational status: unemployed 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 Feels Safe at Home: Yes caffeine: Yes Assistive Devices: None Allergies Allergies Allergy/AdvReac Type Severity Reaction Status Date / Time No Known Allergies Allergy Verified 08/24/22 21:43 Home Meds Home Medications Medication Instructions Recorded Confirmed prenat.vits,karina,[id number] 1 tab PO DAILY vitamin 01/07/22 08/24/22 ascorbic acid (vitamin C) 1,000 mg 1 g PO DAILY 08/24/22 08/24/22 tablet (Vitamin C) Results & Data (ED) Vital Signs Vital Signs - 24 hr 08/24/22 20:28 08/24/22 20:39 08/24/22 20:43 Temperature 36.9 C Temperature Source Temporal Artery Scan Pulse Rate 77 68 Pulse Rate [Apical] 71 Respiratory Rate 18 20 20 Respiratory Effort / Characteristics Non-Labored Spontaneous Respiratory Depth Normal Respiratory Pattern Regular Blood Pressure 174/108 H Blood Pressure [Left Arm] 169/117 H Blood Pressure Mean 130 Blood Pressure Mean [Left Arm] 134 Blood Pressure Position Sitting Blood Pressure Position [Left Arm] Sitting Pulse Oximetry 98 99 99 Oxygen Delivery Method Room Air Room Air Room Air Sepsis Recent Fever Within 48 Hours No Sepsis New/Unexplained Change in Mental Status N/A Sepsis Action Taken by Nursing No Action Required 08/24/22 21:33 08/24/22 22:00 08/24/22 22:28 Temperature Temperature Source Pulse Rate 60 68 Pulse Rate [Apical] 61 Respiratory Rate 18 20 16 Respiratory Effort / Characteristics Non-Labored Respiratory Depth Normal Respiratory Pattern Regular Blood Pressure 178/108 H 173/112 H Blood Pressure [Left Arm] 158/109 H Blood Pressure Mean 131 132 Blood Pressure Mean [Left Arm] 125 Blood Pressure Position Blood Pressure Position [Left Arm] Sitting Pulse Oximetry 99 98 98 Oxygen Delivery Method Room Air Room Air Room Air Sepsis Recent Fever Within 48 Hours Sepsis New/Unexplained Change in Mental Status Sepsis Action Taken by Nursing 08/24/22 22:48 08/24/22 22:54 Temperature Temperature Source Pulse Rate 65 68 Pulse Rate [Apical] Respiratory Rate 18 16 Respiratory Effort / Characteristics Respiratory Depth Respiratory Pattern Blood Pressure 150/95 H 155/107 H Blood Pressure [Left Arm] Blood Pressure Mean 113 123 Blood Pressure Mean [Left Arm] Blood Pressure Position Blood Pressure Position [Left Arm] Pulse Oximetry 99 97 Oxygen Delivery Method Room Air Room Air Sepsis Recent Fever Within 48 Hours Sepsis New/Unexplained Change in Mental Status Sepsis Action Taken by Nursing Laboratory Data 08/24/22 20:43 08/24/22 20:43 Lab Results 08/24/22 08/24/22 08/24/22 Range/Units 20:43 20:43 21:34 WBC 8.99 (4.8-10.8) K/ul RBC 4.32 (4.20-5.40) M/uL Hgb 13.8 (12.0-16.0) g/dl Hct 39.0 (37.0-47.0) % MCV 90.3 (80.0-100.0) fL MCH 31.9 (25.0-34.0) pg MCHC 35.4 (32.0-36.0) g/dL RDW Std Deviation 41.5 (36.4-46.3) fL RDW Coeff of Jose 12.8 (11.5-14.5) % Plt Count 284 (130-400) K/uL MPV 9.8 (9.4-12.4) fL Immature Gran % (Auto) 0.1 % Neut % (Auto) 57.1 % Lymph % (Auto) 32.4 % [place] % (Auto) 7.2 % Eos % (Auto) 2.6 % Baso % (Auto) 0.6 % Neut # (Auto) 5.14 (1.40-6.50) K/uL Lymph # (Auto) 2.91 (1.2-3.4) K/uL [place] # (Auto) 0.65 H (0.11-0.59) K/uL Eos # (Auto) 0.23 (0-0.50) K/uL Baso # (Auto) 0.05 (0-0.2) K/uL Immature Gran # (Auto) 0.01 (0.01-0.20) K/uL Sodium 138 (136-145) mmol/L Potassium 3.8 (3.5-5.1) mmol/L Chloride 107 (98-107) mmol/L Carbon Dioxide 23 (21-32) mmol/L Anion Gap 8 (3-11) BUN 13 (6-23) mg/dl Creatinine 0.69 (0.6-1.2) mg/dl Est Cr Clr Drug Dosing 135.3 ml/min Est GFR ( Amer) 137.3 ml/min Est GFR (Non-Af Amer) 118.5 ml/min BUN/Creatinine Ratio 18.8 (10-20) Glucose 84 (70-99(Fasting)) mg/dl Uric Acid 7.0 (2.6-7.2) mg/dl Calcium 9.1 (8.5-10.1) mg/dl Total Bilirubin 0.3 (0.2-1.0) mg/dl AST 18 (13-39) U/L ALT 21 (7-52) U/L Alkaline Phosphatase 102 (34-104) U/L Troponin I High Sens 3.2 (0-14) pg/ml Total Protein 7.5 (6.0-8.3) gm/dl Albumin 3.8 (3.4-5.0) gm/dl Globulin 3.7 (2.5-4.0) gm/dl Albumin/Globulin Ratio 1.0 (0.9-2) Lipase 24 (11-82) U/L Urine Color Yellow Urine Appearance Clear (Clear) Urine pH 5.5 (4.5-7.5) Ur Specific [place] 1.007 (1.000-1.030) Urine Protein Negative (Negative) Urine Glucose (UA) Negative (Negative) Urine Ketones Negative (Negative) Urine Blood Trace H (Negative) Urine Nitrite Negative (Negative) Urine Bilirubin Negative (Negative) Urine Urobilinogen Negative (Negative) Ur Leukocyte Esterase Negative (Negative) Urine WBC (Auto) 1-5 (0-5) /hpf Urine RBC (Auto) 0-4 (0-4) /hpf U Hyaline Cast (Auto) 0 (0-5) /lpf U Epithel Cells (Auto) 5-10 H (0-5) /lpf Urine Bacteria (Auto) Negative (Negative) Administered Medications Discontinued Medications Hydralazine HCl (Hydralazine Hcl 20 Mg/Ml Vial) 5 mg IV NOW ONE Stop: 08/24/22 22:36 Last Admin: 08/24/22 22:41 Dose: 5 mg Documented By: QGV Sodium Chloride (Nss) 500 mls @ 999 mls/hr IV .Q31M ONE Stop: 08/24/22 21:58 Last Admin: 08/24/22 22:57 Dose: Not Given Documented By: QGV Ondansetron HCl (Ondansetron Inj 2 Mg/Ml 2 Ml Vial) 4 mg IV NOW STA Stop: 08/24/22 20:47 Last Admin: 08/24/22 22:43 Dose: 4 mg Documented By: QGV Discharge Plan Visit Data Chief Complaint: Hypertension Stated Complaint: HYPERTENSION - 8 DAYS ED Provider: Chintan Al Discharge Problem: Hypertension, Pre-eclampsia in period Forms Stand Alone Forms: [facility] Prescriptions Prescriptions: No Action prenat.vits,karina,[id number] Tablet 1 tab PO DAILY ascorbic acid (vitamin C) [Vitamin C] 1,000 mg Tablet 1 g PO DAILY Referrals Referrals: Tete Sparks PA-C [Primary Care Provider] -
[2022-08-24 20:59] LABS: Basophils # (auto) 0.05 K/uL (0-0.2); Basophils % (auto) 0.6 %; Eosinophils # (auto) 0.23 K/uL (0-0.50); Eosinophils % (auto) 2.6 %; Hemoglobin 13.8 g/dl (12.0-16.0); Immature Granulocytes # (auto) 0.01 K/uL (0.01-0.20); Immature Granulocytes % (auto) 0.1 %; Lymphocytes # (auto) 2.91 K/uL (1.2-3.4); Lymphocytes % (auto) 32.4 %; Mean Corpuscular Hemoglobin 31.9 pg (25.0-34.0); Mean Corpuscular Hgb Conc 35.4 g/dL (32.0-36.0); Mean Corpuscular Volume 90.3 fL (80.0-100.0); Mean Platelet Volume 9.8 fL (9.4-12.4); Monocytes # (auto) 0.65 K/uL (0.11-0.59); Monocytes % (auto) 7.2 %; Neutrophils # (auto) 5.14 K/uL (1.40-6.50); Neutrophils % (auto) 57.1 %; Platelet Count 284 K/uL (130-400); RDW Coefficient of Variation 12.8 % (11.5-14.5); RDW Standard Deviation 41.5 fL (36.4-46.3); Red Blood Count 4.32 M/uL (4.20-5.40); White Blood Count 8.99 K/ul (4.8-10.8)
[2022-08-24 21:13] LABS: Albumin Level 3.8 gm/dl (3.4-5.0); Bilirubin,Total 0.3 mg/dl (0.2-1.0); Creatinine Clr Calc Pharmacy 135.3 ml/min; Globulin 3.7 gm/dl (2.5-4.0); Total Protein 7.5 gm/dl (6.0-8.3)
[2022-08-24 21:22] LABS: BUN Creatinine Ratio 18.8 (10-20); Calcium 9.1 mg/dl (8.5-10.1); Est GFR (African American) 137.3 ml/min; Est GFR (Non-African American) 118.5 ml/min; Potassium 3.8 mmol/L (3.5-5.1)
[2022-08-24 21:28] LABS: Troponin I High Sensitivity 3.2 pg/ml (0-14)
[2022-08-24] MEDS ORDERED: SODIUM CHLORIDE 0.9% 500 ML IV ONE (21:28)
[2022-08-24 21:47] LABS: Appearance Urine Clear (Clear); Bacteria Urine Automated Negative (Negative); Bilirubin Urine Negative (Negative); Blood Urine Trace (Negative); Cast Urine Automated 0 /lpf (0-5); Color Urine Yellow; Glucose Urine UA Negative (Negative); Ketones Urine Negative (Negative); Leukocyte Esterase Urine Negative (Negative); Nitrite Urine Negative (Negative); Protein Urine Negative (Negative); RBC Urine Automated 0-4 /hpf (0-4); Specific Gravity Urine 1.007 (1.000-1.030); Urobilinogen Urine Negative (Negative); pH Urine 5.5 (4.5-7.5)
[2022-08-24] MEDS ORDERED: hydrALAZINE HCL 20 MG/ML VIAL IV ONE (22:35)
[2022-08-24] MEDS ORDERED: MAG SULFATE 4GM BOLUS FROM BAG IV ONE (23:24)
[2022-08-24] MEDS ORDERED: ACETAMINOPHEN 325 MG TAB PO PRN (23:28)
[2022-08-25] MEDS: MAGNESIUM SULFATE / WTR 40 GM/1,000 ML BAG IV SCH ×2 (00:05→17:33)
[2022-08-25] MEDS: IBUPROFEN 600 MG TAB PO PRN ×3 (04:36→17:29)
[2022-08-25] MEDS ORDERED: LACTATED RINGER'S 1,000 ML IV SCH (07:15)
[2022-08-25] MEDS ORDERED: PRENATAL VITAMIN 1 TAB PO SCH (08:00)
--- NOTE | 2022-08-25 09:14 | History & Physical Report ---
Date of Service August 24, 2022 Assessment & Plan (1) Pre-eclampsia in period: Plan: Bianka is a 26-year-old 8 days status post vaginal delivery presents with severe preeclampsia. Plan for Mag for 24 hours. Will continue with blood pressure monitoring. Hold off on treatment of blood pressures as they have not been sustained severe range and will treat any sustained severe range blood pressures. Patient may need to be discharged with the medications. (2) Severe pre-eclampsia: History of Present Illness Primary Care Provider: Tete Sparks PA-C Bianka is a 26-year-old approximately 8 days status post vaginal delivery. She is noted to have mild range blood pressures at time of discharge. Patient presents today for acute elevation is with persistent headache. Symptoms have been ongoing throughout the day today. Denies any upper abdominal pain. Labs in the ED demetri will including normal platelets, normal, AST/ALT and normal creatinine. blood pressures the ED were consistently in the severe range. I discussed with Test the diagnosis of preeclampsia discussed recommendation for magnesium sulfate for eclampsia prevention. Patient has a history of preeclampsia requiring magnesium with her prior . In addition patient has history of chronic hypertension Allergies Allergy/AdvReac Type Severity Reaction Status Date / Time No Known Allergies Allergy Verified 08/25/22 02:26 Home Medications Medication Instructions Recorded Confirmed Type prenat.vits,karina,[id number] 1 tab PO DAILY vitamin 01/07/22 08/24/22 History ascorbic acid (vitamin C) 1,000 mg 1 g PO DAILY 08/24/22 08/24/22 History tablet (Vitamin C) Patient History Medical History 37 weeks gestation of DELIVERED MAR 2018 Abdominal pain Abdominal pain affecting Abnormal menstrual cycle Acute endometritis Appendicitis, acute (01/05/14) Appendicitis, acute Benign essential hypertension Chlamydia as a teenager Chronic hypertension in obstetric context in third trimester Chronic migraine without aura or status migrainosus Complex ovarian cyst Exposure to bloodborne pathogen Exposure to bloodborne pathogen Fatigue Female infertility Fever and chills Finger avulsion Gastritis Headache History of endometriosis HTN (hypertension) Intrauterine growth restriction (IUGR) affecting care of mother, third trimester, single gestation Missed Nausea Nausea Near syncope Ovarian cyst left Pelvic pain PID (acute pelvic inflammatory disease) Right upper quadrant pain Sinus congestion Supervision of normal intrauterine in multigravida Vaginitis Surgical History H/O laparoscopy H/O tooth extraction History of dilation and curettage S/P appendectomy Family History Mother Anemia Depression Endometriosis Diabetes Ovarian cyst Hypertension Hypothyroidism Grandmother (Maternal) Depression Hypertension Aunt Depression Ovarian cyst Denies family history of Ovarian cancer Breast cancer Colorectal cancer Social History Smoking Status: Never smoker Second Hand Exposure: No; Hx Alcohol Use: No Hx Substance Use: No Preferred Language: Luxembourgish Communication Ability: Effective Engineer Systems Required: No Beliefs That Will Affect Care: None marital status: marital status details: Omar Dixon (34) [phone] Current Living Situation: Spouse and Family Current Living Situation Comment: and 3 children current occupational status: unemployed 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 Other Information That Helps Us Care for You: No Feels Safe at Home: Yes Safety Concerns: Feels Safe At This Time caffeine: Yes Assistive Devices: Glasses Physical Exam Constitutional: WD/WN, vitals as above Respiratory: normal respiratory effort; no respiratory distress, no labored breathing and no retractions Cardiovascular: Rate/Rhythm: regular rate and regular rhythm Gastrointestinal (Abdomen): Inspection/Auscultation: abdomen normal to inspection; abdomen not distended Percussion/Palpation: abdomen soft; abdomen nontender, no guarding and abdomen not rigid Psychiatric: A+Ox3, euthymic affect Results & Data ([facility]) Vital Signs (Past 12 Hours) Vital Signs Temp Pulse Pulse Resp BP BP Pulse Ox 08/24/22 22:54 68 16 155/107 H 97 08/24/22 22:48 65 18 150/95 H 99 08/24/22 22:28 68 16 173/112 H 98 08/24/22 22:00 61 20 158/109 H 98 08/24/22 21:33 60 18 178/108 H 99 08/24/22 20:43 71 20 169/117 H 99 08/24/22 20:39 68 20 99 08/24/22 20:28 36.9 C 77 18 174/108 H 98 O2 Del Method 08/24/22 22:54 Room Air 08/24/22 22:48 Room Air 08/24/22 22:28 Room Air 08/24/22 22:00 Room Air 08/24/22 21:33 Room Air 08/24/22 20:43 Room Air 08/24/22 20:39 Room Air 08/24/22 20:28 Room Air Coding Level of Care Code 03473 INT INP/OBS CARE 2MIN Diagnoses Pre-eclampsia in period O14.95 Severe pre-eclampsia O14.10
--- NOTE | 2022-08-25 09:50 | Obstetrical Progress Note ---
Date of Service August 25, 2022 Assessment & Plan (1) Pre-eclampsia in period: Plan: Bianka is a 26-year-old 9 days status post vaginal delivery presents with severe preeclampsia. Plan for Mag for 24 hours. Will continue with blood pressure monitoring and will plan to add oral antihypertensive if patient blood pressures remain elevated. Discussed possibility antihypertensive medications with patient this morning (2) Severe pre-eclampsia: Admission and Anticipated Discharge Date Admission Date: August 24, 2022 Subjective Bianka is a 26-year-old and a status post vaginal delivery admitted for severe preeclampsia. Discontinued headache which is improving. Denies any other preeclampsia symptoms. Blood pressures have been mostly mild range. Physical Exam Constitutional: WD/WN, vitals as above Respiratory: normal respiratory effort; no respiratory distress, no labored breathing and no retractions Cardiovascular: Rate/Rhythm: regular rate and regular rhythm Gastrointestinal (Abdomen): Inspection/Auscultation: abdomen normal to inspection; abdomen not distended Percussion/Palpation: abdomen soft; abdomen nontender, no guarding and abdomen not rigid Psychiatric: A+Ox3, euthymic affect Results & Data ([facility]) Vital Signs (Past 12 Hours) Vital Signs Temp Pulse Pulse Pulse Resp BP BP 08/25/22 08:27 18 08/25/22 07:10 18 08/25/22 06:30 16 08/25/22 05:30 16 08/25/22 04:30 37.0 C 16 08/25/22 04:30 16 08/25/22 03:30 18 08/25/22 02:30 16 08/25/22 01:20 16 08/25/22 01:25 08/25/22 01:25 36.9 C 67 16 151/84 H 08/25/22 01:25 08/25/22 09:43 83 08/25/22 09:38 73 08/25/22 09:33 65 08/25/22 09:28 64 08/25/22 09:23 58 L 08/25/22 09:21 70 155/83 H 08/25/22 09:18 59 L 08/25/22 09:13 59 L 08/25/22 09:08 61 08/25/22 09:03 63 08/25/22 08:58 65 08/25/22 08:53 62 08/25/22 08:48 63 08/25/22 08:46 70 08/25/22 08:43 75 08/25/22 08:38 67 08/25/22 08:35 69 08/25/22 08:33 96 H 08/25/22 08:28 81 08/25/22 08:23 61 08/25/22 08:21 65 145/81 H 08/25/22 08:18 56 L 08/25/22 08:13 55 L 08/25/22 08:08 64 08/25/22 08:03 58 L 08/25/22 07:58 56 L 08/25/22 07:53 55 L 08/25/22 07:48 56 L 08/25/22 07:43 57 L 08/25/22 07:38 55 L 08/25/22 07:33 57 L 08/25/22 07:28 70 08/25/22 07:23 66 08/25/22 07:21 75 137/81 08/25/22 07:18 71 08/25/22 07:13 58 L 08/25/22 07:08 64 08/25/22 07:05 104 H 08/25/22 07:03 88 08/25/22 06:58 60 08/25/22 06:53 62 08/25/22 06:48 58 L 08/25/22 06:43 59 L 08/25/22 06:38 59 L 08/25/22 06:33 85 08/25/22 06:28 59 L 08/25/22 06:23 78 08/25/22 06:21 76 149/83 H 08/25/22 06:18 60 08/25/22 06:13 60 08/25/22 06:08 59 L 08/25/22 06:03 58 L 08/25/22 05:58 62 08/25/22 05:53 65 08/25/22 05:48 66 08/25/22 05:43 68 08/25/22 05:38 68 08/25/22 05:33 60 08/25/22 05:28 61 08/25/22 05:23 61 08/25/22 05:21 82 141/82 H 08/25/22 05:18 59 L 08/25/22 05:13 60 08/25/22 05:08 59 L 08/25/22 05:03 59 L 08/25/22 04:58 61 08/25/22 04:53 60 08/25/22 04:48 63 08/25/22 04:43 62 08/25/22 04:38 73 08/25/22 04:33 92 H 08/25/22 04:28 92 H 08/25/22 04:23 74 08/25/22 04:21 87 156/94 H 08/25/22 04:18 59 L 08/25/22 04:13 60 08/25/22 04:08 62 08/25/22 04:03 62 08/25/22 03:58 58 L 08/25/22 03:53 65 08/25/22 03:48 59 L 08/25/22 03:43 58 L 08/25/22 03:38 70 08/25/22 03:33 64 08/25/22 03:28 65 08/25/22 03:23 61 08/25/22 03:21 71 166/93 H 08/25/22 03:18 60 08/25/22 03:13 58 L 08/25/22 03:08 59 L 08/25/22 03:03 56 L 08/25/22 02:58 59 L 08/25/22 02:53 57 L 08/25/22 02:48 52 L 08/25/22 02:43 65 08/25/22 02:38 55 L 08/25/22 02:33 56 L 08/25/22 02:28 55 L 08/25/22 02:23 56 L 08/25/22 02:21 63 144/85 H 08/25/22 02:18 57 L 08/25/22 02:13 57 L 08/25/22 02:08 56 L 08/25/22 02:03 58 L 08/25/22 01:58 59 L 08/25/22 01:53 58 L 08/25/22 01:48 62 08/25/22 01:43 68 08/25/22 01:38 78 08/25/22 01:33 60 08/25/22 01:28 65 08/25/22 01:23 72 08/25/22 01:18 66 08/25/22 01:19 67 151/84 H 08/25/22 01:13 71 08/25/22 01:09 08/25/22 01:09 85 08/25/22 01:08 83 08/25/22 01:09 81 176/100 H 08/25/22 00:52 08/25/22 00:39 65 14 08/25/22 00:39 142/84 H 08/25/22 00:00 69 19 08/25/22 00:00 148/97 H 08/24/22 23:30 77 13 08/24/22 23:30 144/104 H 08/24/22 23:00 59 L 16 08/24/22 23:00 147/97 H 08/24/22 22:54 68 16 155/107 H 08/24/22 22:48 65 18 150/95 H 08/24/22 22:28 68 16 173/112 H 08/24/22 22:00 61 20 158/109 H Pulse Ox O2 Del Method 08/25/22 08:27 08/25/22 07:10 08/25/22 06:30 08/25/22 05:30 08/25/22 04:30 08/25/22 04:30 08/25/22 03:30 08/25/22 02:30 08/25/22 01:20 08/25/22 01:25 Room Air 08/25/22 01:25 98 Room Air 08/25/22 01:25 Room Air 08/25/22 09:43 96 08/25/22 09:38 97 08/25/22 09:33 99 08/25/22 09:28 97 08/25/22 09:23 98 08/25/22 09:21 94 08/25/22 09:18 96 08/25/22 09:13 96 08/25/22 09:08 96 08/25/22 09:03 96 08/25/22 08:58 98 08/25/22 08:53 98 08/25/22 08:48 97 08/25/22 08:46 93 08/25/22 08:43 97 08/25/22 08:38 96 08/25/22 08:35 93 08/25/22 08:33 100 08/25/22 08:28 98 08/25/22 08:23 97 08/25/22 08:21 08/25/22 08:18 96 08/25/22 08:13 97 08/25/22 08:08 97 08/25/22 08:03 97 08/25/22 07:58 97 08/25/22 07:53 96 08/25/22 07:48 97 08/25/22 07:43 96 08/25/22 07:38 97 08/25/22 07:33 97 08/25/22 07:28 99 08/25/22 07:23 98 08/25/22 07:21 08/25/22 07:18 98 08/25/22 07:13 96 08/25/22 07:08 98 08/25/22 07:05 92 08/25/22 07:03 99 08/25/22 06:58 97 08/25/22 06:53 98 08/25/22 06:48 98 08/25/22 06:43 97 08/25/22 06:38 98 08/25/22 06:33 100 08/25/22 06:28 98 08/25/22 06:23 100 08/25/22 06:21 94 08/25/22 06:18 96 08/25/22 06:13 96 08/25/22 06:08 96 08/25/22 06:03 97 08/25/22 05:58 97 08/25/22 05:53 97 08/25/22 05:48 98 08/25/22 05:43 98 08/25/22 05:38 98 08/25/22 05:33 98 08/25/22 05:28 98 08/25/22 05:23 98 08/25/22 05:21 08/25/22 05:18 97 08/25/22 05:13 98 08/25/22 05:08 97 08/25/22 05:03 98 08/25/22 04:58 98 08/25/22 04:53 98 08/25/22 04:48 98 08/25/22 04:43 98 08/25/22 04:38 100 08/25/22 04:33 95 08/25/22 04:28 99 08/25/22 04:23 99 08/25/22 04:21 08/25/22 04:18 98 08/25/22 04:13 97 08/25/22 04:08 97 08/25/22 04:03 97 08/25/22 03:58 97 08/25/22 03:53 98 08/25/22 03:48 97 08/25/22 03:43 98 08/25/22 03:38 97 08/25/22 03:33 98 08/25/22 03:28 98 08/25/22 03:23 98 08/25/22 03:21 08/25/22 03:18 98 08/25/22 03:13 97 08/25/22 03:08 97 08/25/22 03:03 98 08/25/22 02:58 97 08/25/22 02:53 97 08/25/22 02:48 98 08/25/22 02:43 99 08/25/22 02:38 98 08/25/22 02:33 98 08/25/22 02:28 99 08/25/22 02:23 98 08/25/22 02:21 91 08/25/22 02:18 97 08/25/22 02:13 98 08/25/22 02:08 98 08/25/22 02:03 99 08/25/22 01:58 100 08/25/22 01:53 99 08/25/22 01:48 98 08/25/22 01:43 99 08/25/22 01:38 96 08/25/22 01:33 99 08/25/22 01:28 98 08/25/22 01:23 99 08/25/22 01:18 100 08/25/22 01:19 08/25/22 01:13 98 08/25/22 01:09 93 08/25/22 01:09 08/25/22 01:08 99 08/25/22 01:09 08/25/22 00:52 Room Air 08/25/22 00:39 08/25/22 00:39 08/25/22 00:00 08/25/22 00:00 08/24/22 23:30 08/24/22 23:30 08/24/22 23:00 08/24/22 23:00 08/24/22 22:54 97 Room Air 08/24/22 22:48 99 Room Air 08/24/22 22:28 98 Room Air 08/24/22 22:00 98 Room Air PG Care Time/CCT Total # of Minutes Spent Total Time Spent with Patient: Total time spent is greater than 50% in coordination of care (as documented) at patient's floor/unit and/or counseling patient: Coding Level of Care Code 04957 SUB INP/OBS CARE Diagnoses Pre-eclampsia in period O14.95 Severe pre-eclampsia O14.10
[2022-08-25] MEDS ORDERED: METOCLOPRAMIDE HCL INJ 5 MG/ML 2 ML VIAL IV STA (19:23)
[2022-08-26] MEDS: IBUPROFEN 600 MG TAB PO PRN (00:07)
--- NOTE | 2022-08-26 05:49 | Electrocardiogram Report ---
Test Reason : Blood Pressure : / mmHG Vent. Rate : 064 BPM Atrial Rate : 064 BPM P-R Int : 128 ms QRS Dur : 072 ms QT Int : 388 ms P-R-T Axes : 005 052 029 degrees QTc Int : 400 ms Normal sinus rhythm Nonspecific ST abnormality Abnormal ECG When compared with ECG of 14-APR-2021 12:50, No significant change Confirmed by Guido Schmidt ([id number]) on 08/26/2022 5:49:19 AM Referred By: REFERRED SELF Confirmed By:Guido Schmidt
--- NOTE | 2022-08-26 07:31 | Obstetrical Progress Note ---
Date of Service August 26, 2022 Assessment & Plan (1) Pre-eclampsia in period: Plan: - Bianka is a 26-year-old 10 days status post vaginal delivery - Patient presented w/ severe pre-eclampsia 08/24 - Patient received IV Mag for 24 hours, discontinued this AM - BP have been improving w/ occasional moderate elevation, no severe range pressures - Additional antihypertensive medication not indicated - Plan discharge today - Patient will follow with PCP on and relay BP readings to OB office - Plan to keep 6 week appointment - Contact OB office in interim for acute concerns or recurrence of elevated BPs Admission and Anticipated Discharge Date Admission Date: August 24, 2022 Supervising Physician Co-Signing Physician Notes Patient seen with resident and agree with above findings and plan. Subjective Bianka is a 26-year-old approximately 10 days s/p .Patient presented with severe range pressures and headaches. Patient was known to have a hx of pre-eclampsia which required Mg during her prior . She also has a known history of chronic HTN. Today, she notes that her headache is much improved. She denies any chest pain, visual changes, dyspnea, RUQ pain, or lower extremity swelling. She endorses continued lower abdominal cramping, but this has continued to improved since delivery. Patient received Mg sulfate IV, which was discontinued this AM for improvement of BP. Patient is anticipating going home. Review of Systems Constitutional: As per HPI Physical Exam Physical Exam: General: Alert, oriented. No acute distress. Cardiac: RRR, normal S1/S2, no murmurs/rubs/gallops. Respiratory: Non-labored, CTAB, no wheezes/rales/rhonchi. Symmetric chest rise. Abdomen: Soft, nontender, nondistended. Bowel sounds present. Lower Extremities: No lower extremity edema or swelling. No deep calf pain. Sara's negative bilaterally. Results & Data ([facility]) Vital Signs (Past 12 Hours) Vital Signs Temp Pulse Resp BP Pulse Ox O2 Del Method 08/26/22 03:45 18 08/25/22 23:30 16 08/26/22 00:00 36.6 C 16 08/26/22 00:00 16 08/25/22 22:30 16 08/25/22 21:30 16 08/25/22 20:22 16 02/12/23 19:25 36.7 C 18 08/25/22 19:25 18 08/25/22 19:25 Room Air 08/26/22 07:18 64 141/85 H 08/26/22 03:36 91 H 139/85 08/25/22 23:53 68 97 08/25/22 23:54 63 126/77 08/25/22 23:48 69 97 08/25/22 23:43 63 97 08/25/22 23:38 55 L 97 08/25/22 23:33 56 L 98 08/25/22 23:28 56 L 98 08/25/22 23:23 58 L 98 08/25/22 23:21 79 147/75 H 08/25/22 23:18 58 L 96 08/25/22 23:13 58 L 96 08/25/22 23:08 58 L 96 08/25/22 23:03 57 L 96 08/25/22 22:58 55 L 97 08/25/22 22:53 55 L 97 08/25/22 22:48 56 L 97 08/25/22 22:43 56 L 98 08/25/22 22:38 58 L 97 08/25/22 22:33 59 L 98 08/25/22 22:28 79 98 08/25/22 22:23 69 97 08/25/22 22:21 63 123/75 08/25/22 22:18 62 98 08/25/22 22:13 62 98 08/25/22 22:08 58 L 99 08/25/22 22:03 58 L 97 08/25/22 21:58 57 L 98 08/25/22 21:53 63 97 08/25/22 21:48 65 99 08/25/22 21:43 63 97 08/25/22 21:38 65 97 08/25/22 21:33 62 99 08/25/22 21:28 77 99 08/25/22 21:23 64 97 08/25/22 21:21 69 134/74 08/25/22 21:18 60 97 08/25/22 21:13 57 L 97 08/25/22 21:08 59 L 97 08/25/22 21:03 70 96 08/25/22 20:58 61 97 08/25/22 20:53 58 L 97 08/25/22 20:48 58 L 97 08/25/22 20:43 59 L 97 08/25/22 20:38 58 L 97 08/25/22 20:33 57 L 97 08/25/22 20:28 65 98 08/25/22 20:23 75 100 08/25/22 20:21 96 H 133/82 08/25/22 20:18 60 97 08/25/22 20:13 60 97 08/25/22 20:08 61 97 08/25/22 20:03 71 97 08/25/22 19:58 66 97 08/25/22 19:53 70 98 08/25/22 19:49 64 93 08/25/22 19:48 74 99 08/25/22 19:43 61 98 08/25/22 19:38 65 99 08/25/22 19:33 63 99 08/25/22 19:28 73 100 08/25/22 19:23 62 100 Resident Activity Tracking Resident Involvement: Resident Care Provided Care Provided: Adult Hospital Medicine
== END 2022-08-26 09:35 | disposition home or self-care (01) | DRG 776 ==
LOC: ED 20:17 → 4S1 23:25 → UNDODISIN 08-25 14:00
DX: O14.15 Severe pre-eclampsia, complicating the puerperium